=== PATIENT | female | born 1940 | race Caucasian/White ===

== ENCOUNTER 2018-03-07 14:30 | Observation (INO) | payer MEDICARE, OTHER ==
[~2018-03-07 14:30] MED LIST: ISOVUE-370 76%-LOCM 1 ML ONE; Iopamidol 370 76% 50 ML VIAL FS ONE
[2018-03-07 15:28] LABS: #Eosinphils 0.1 thou/uL (0.0-0.7); #Lymphocytes 1.6 thou/uL (1.20-3.40); #Monocytes 0.6 thou/uL (0.11-0.59); #Neutrophils 4.5 thou/uL (1.40-6.50); %Basophils 0.2 % (0.0-1.0); %Eosinophils 2.2 % (0.0-10.0); %Lymphocytes 23.9 % (21.0-51.0); %Monocytes 8.1 % (0.0-10.0); %Neutrophils 65.7 % (42.0-75.0); Hemoglobin 10.2 g/dL (12.0-16.0); Mean Corpuscular HGB CONC 31.4 g/dL (32.0-36.0); Mean Corpuscular Hemoglobin 26.8 pg (27.0-31.0); Mean Corpuscular Volume 85.4 fL (78.0-98.0); Mean Platelet Volume 8.1 fL (7.4-10.4); Platelet Count 165 thou/uL (130-400); RBC Distribution Width 15.5 % (11.5-14.5); Red Blood Cell (RBC) Count 3.79 mill/uL (4.20-5.40); White Blood Cell (WBC) Count 6.8 thou/uL (4.8-10.8)
[2018-03-07 15:47] LABS: ALT (SGPT) 29 U/L (8-55); AST (SGOT) 46 U/L (5-34); Albumin 3.5 g/dL (3.4-4.8); Alkaline Phosphatase 70 U/L (40-150); Anion Gap 13 mmol/L (10-20); BUN (Urea Nitrogen) 5 mg/dL (9.8-20.1); Bilirubin, Total 0.8 mg/dL (0.2-1.2); Calc. Creatinine Clearance 0 mL/min (70-130); Calcium 8.9 mg/dL (7.8-10.44); Carbon Dioxide 24 mmol/L (23-31); Chloride 102 mmol/L (98-107); Estimated GFR-MDRD 51; Globulin 3.4 g/dL (2.4-3.5); Glucose 199 mg/dL (83-110); Protein, Total 6.9 g/dL (6.0-8.3); Sodium 136 mmol/L (136-145)
[2018-03-07 15:51] LABS: CKMB 0.6 ng/mL (0-6.6); Troponin I 0.016 ng/mL (< 0.028)
[2018-03-07 15:52] LABS: Potassium 2.9 mmol/L (3.5-5.1)
[2018-03-07] MEDS ORDERED: Promethazine HCl 25 MG/ML VIAL ONE (16:23)
--- NOTE | 2018-03-07 16:59 | CT ---
CT ABDOMEN AND PELVIS WITH IV CONTRAST: Date: 03/07/18 PROVIDED CLINICAL HISTORY: Abdominal fullness. FINDINGS: Visualized lung bases are free of significant opacity. The liver, spleen, pancreas, kidneys, and adrenal glands demonstrate an unremarkable CT appearance. C hanges of prior cholecystectomy are seen There is no bowel dilatation, inflammatory fat stranding, free fluid, or lymph node enlargement appar ent. Vascular calcification is seen. The osseous structures demonstrate no concerning lytic or blastic lesions. IMPRESSION: No evidence for an acute process. POS: [facility]
[2018-03-07 17:57] LABS: Magnesium 1.5 mg/dL (1.6-2.6); Phosphorus 2.3 mg/dL (2.3-4.7)
[2018-03-07] MEDS ORDERED: Potassium Chloride 20 MEQ TAB ONE (18:15)
[2018-03-07 19:51] VITALS: BMI 29.7
[2018-03-07] MEDS ORDERED: Prevnar 13-Val Conj/PF 0.5 ML SYRINGE IM ONE (20:15)
[2018-03-07 20:28] LABS: Troponin I 0.018 ng/mL (< 0.028)
[2018-03-07 22:59] LABS: Troponin I 0.014 ng/mL (< 0.028)
[2018-03-08] MEDS ORDERED: Bisacodyl 5 MG TAB PO PRN (02:21)
[2018-03-08] MEDS ORDERED: Ondansetron ODT 4 MG TAB PO PRN (02:21)
[2018-03-08] MEDS ORDERED: Acetaminophen 325 MG TAB PO PRN (02:21)
[2018-03-08] MEDS ORDERED: Dextrose 50% Abboject 50 ML SYRINGE SLOW IVP PRN (02:35)
[2018-03-08] MEDS ORDERED: Dextrose 5% in Water 1,000 ML IV PRN (02:35)
[2018-03-08] MEDS: Sodium Chloride 0.9% 1,000 ML IV SCH ×2 (03:22→16:15)
--- NOTE | 2018-03-08 03:49 | HP ---
CHIEF COMPLAINT: "I lose consciousness sometimes." HISTORY OF PRESENT ILLNESS: This is a 77-year-old female with past medical history of hypertension, diabetes mellitus type 2, osteoporosis, hyponatremia, presenting with syncope. Per electronic medical records, the patient is being brought to the hospital to be evaluated for syncopal episodes x2. Per records, patient's grandson caught the patient both times when the patient syncopized and per records & patient, she did not hit her head. Upon questioning, the patient states that she does not remember any of the incidents where she lost her consciousness. He stated that in the past she has had episode of falling and not knowing what happened. Per electronic medical record , caregiver reports rapid breathing rate during the episode and daughter stated that the patient had slower speech. The patient at this time denies any chest pain, palpitations, shortness of breath, dizziness, headaches. Per daughter, the patient had diarrhea. When asked about stitches in patient's head, the patient stated that she saw her doctor who removed her cancer from her forehead and he left stitches in and the stitches were supposed to be removed yesterday by patient had to come to the hospital because of syncopal episodes. REVIEW OF SYSTEMS: Positive for nausea, vomiting, and dizziness. Otherwise, as documented in the HPI. All systems were reviewed and are negative. PAST MEDICAL HISTORY: Hypertension, diabetes mellitus type 2, osteoporosis, hyponatremia. PAST SURGICAL HISTORY: Two-basal cell carcinoma removal, aortic valve replacement, cardiac catheterization, tonsillectomy, tubal ligation, cholecystectomy, bilateral rotator cuff repair. FAMILY HISTORY: Reviewed and contributory to this visit. PSYCHIATRIC HISTORY: No psych history. SOCIAL HISTORY: The patient denies any alcohol use, denies any illicit drug. Denies any smoking history. ALLERGIES: No known drug allergies. CURRENT MEDICATIONS: The patient takes; 1. Janumet 50 mg. 2. Aspirin 81 mg. 3. Carvedilol 40 mg b.i.d. 4. Omeprazole 20 mg. 5. Furosemide 20 mg p.r.n. 6. Tolterodine 4 mg daily. 7. Cetirizine once a day. 8. Clonidine 0.1 mg b.i.d. p.r.n. 9. Raloxifene 60 mg daily. PHYSICAL EXAMINATION: VITAL SIGNS: Blood pressure is 116/55, pulse is 73, respiratory rate of 22, temperature of 97.6, oxygen saturation of 95 on room air. GENERAL: The patient is alert, oriented x3, not in acute distress. The patient is lying in bed, speaking in full sentences. HEENT: Normocephalic, atraumatic. Pupils are equal, round, and react to light. Extraocular movements are intact. No scleral icterus. No conjunctival pallor. NECK: No JVD. Trachea is midline. No meningeal signs. Full range of motion. LUNGS: Clear to auscultation bilaterally. No wheezing, no rales, no rhonchi appreciated. CARDIOVASCULAR: Positive S1, S2. Regular rate and rhythm. No murmurs, no gallops, no rubs appreciated. ABDOMEN: Distended. Positive bowel sounds in all quadrants. No masses. No pulsatile masses. No peritoneal signs. EXTREMITIES: Upper extremity: 5/5 upper extremity strength. Good radial pulses bilaterally. Lower extremity: 5/5 lower extremity strength. Good dorsalis pedis pulses bilaterally. NEUROLOGIC: Cranial nerves II through XII grossly intact. No neurologic deficits noted. SKIN: Patient appears pale, warm, and dry. No rashes appreciated. PSYCHIATRIC: Normal affect. EKG: Normal sinus rhythm with a rate of 71. LABORATORY DATA: WBC is 6.8, hemoglobin is 10.2, hematocrit is 30.2, MCV is 85.4, RDW is 15.5. Sodium is 136, potassium is 2.9, chloride 102, carbon dioxide 24, BUN of 5, creatinine is 1.04, glucose is 199, magnesium is 1.5. AST is 46, ALT is 29. IMAGING: CT abdomen and pelvis showed no evidence of any acute process. ASSESSMENT AND PLAN: This is a 77-year-old female being admitted for: 1. Syncope, likely due to orthostatic hypotension. At this point, we have ordered orthostatic blood pressures. We will follow up with morning EKG. We will follow up with morning labs. We will order an echo and follow up on echo. We will adjust the patient's medications accordingly. We will start the patient on gentle hydration. We will follow up in the morning. We will continue to monitor the patient closely. 2. Microcytic anemia, likely due to iron deficiency. We have ordered iron, B12 , folate. We will follow up on these results in the morning. 3. Hypertension. We will continue patient on current medications. We will hold Coreg for now. 4. Diabetes mellitus type 2. We will start the patient on insulin sliding scale. We will monitor the patient. 5. Status post basal cell carcinoma of the forehead removed, currently stable. We will continue to monitor the patient. 6. Deep venous thrombosis and gastrointestinal prophylaxis. MTDD
[2018-03-08 05:04] LABS: #Eosinphils 0.2 thou/uL (0.0-0.7); #Lymphocytes 2.4 thou/uL (1.20-3.40); #Monocytes 0.5 thou/uL (0.11-0.59); #Neutrophils 4.2 thou/uL (1.40-6.50); %Basophils 0.4 % (0.0-1.0); %Eosinophils 2.6 % (0.0-10.0); %Lymphocytes 32.8 % (21.0-51.0); %Monocytes 7.3 % (0.0-10.0); %Neutrophils 56.9 % (42.0-75.0); Hemoglobin 9.9 g/dL (12.0-16.0); Mean Corpuscular HGB CONC 31.1 g/dL (32.0-36.0); Mean Corpuscular Hemoglobin 26.5 pg (27.0-31.0); Mean Corpuscular Volume 85.2 fL (78.0-98.0); Mean Platelet Volume 8.2 fL (7.4-10.4); Platelet Count 192 thou/uL (130-400); RBC Distribution Width 15.7 % (11.5-14.5); Red Blood Cell (RBC) Count 3.74 mill/uL (4.20-5.40); White Blood Cell (WBC) Count 7.3 thou/uL (4.8-10.8)
[2018-03-08 05:22] LABS: Anion Gap 10 mmol/L (10-20); BUN (Urea Nitrogen) 7 mg/dL (9.8-20.1); Calc. Creatinine Clearance 66 mL/min (70-130); Calcium 8.7 mg/dL (7.8-10.44); Carbon Dioxide 25 mmol/L (23-31); Chloride 104 mmol/L (98-107); Estimated GFR-MDRD 60; Glucose 143 mg/dL (83-110); Iron 32 ug/dL (50-170); Iron Binding Capacity, Total 354 mcg/dL (265-497); Sodium 136 mmol/L (136-145)
[2018-03-08 05:28] LABS: Potassium 2.9 mmol/L (3.5-5.1)
[2018-03-08 05:53] LABS: Folate (Folic Acid) 12.7 ng/mL (7.0-31.4)
[2018-03-08] MEDS: Potassium Chloride 20 MEQ in Premix Bag 1 BAG IVPB SCH ×2 (06:31→11:45)
[2018-03-08] MEDS: Aspirin 81 mg Enteric Coated Tablet PO SCH (09:20)
[2018-03-08] MEDS: Enoxaparin Sodium 40 MG/0.4 ML SYRINGE SC SCH (09:21)
[2018-03-08] MEDS: Famotidine 20 MG TAB PO SCH ×2 (09:21→20:00)
[2018-03-08] MEDS: Cetirizine HCl 10 MG TAB PO SCH (09:21)
[2018-03-08] MEDS: HumaLOG 300 UNITS/3 ML VIAL SC PRN ×2 (12:14→17:19)
--- NOTE | 2018-03-08 13:28 | PDOC.EVN ---
Event Note - Event Note Event Note: Pt seen and examined with Kendal Jacobson PA-C. I have seen and evaluated the pateint and reviewed all documentations. I agree with the findings and plan as outlined in his note
[2018-03-08 14:37] LABS: Magnesium 1.5 mg/dL (1.6-2.6); Potassium 3.4 mmol/L (3.5-5.1)
[2018-03-08] MEDS: Carvedilol 6.25 MG TAB PO SCH (16:12)
[2018-03-08] MEDS ORDERED: Carvedilol 6.25 MG TAB PO SCH (17:00)
--- NOTE | 2018-03-08 17:09 | PDOC.PN ---
- Subjective Encounter Start Date: 03/08/18 Encounter Start Time: 17:05 Patient lying in bed, she denies chest pain, shortness of breath or abdominal pain. Potassium was found to be low this morning at 2.9 and improved with potassium supplementation via IV infusion. It was also found that Magnesium was 1.5. Orthostatic BPs were obtained and were negative. She has shown symptom improvement post replacement, but her BP has worsened today and she has since been restarted on home Carvedilol - Objective Resuscitation Status: Resuscitation Status FULL:Full Resuscitation MAR Reviewed: Yes Vital Signs & Weight: Vital Signs (12 hours) Temp Pulse Resp BP BP BP Pulse Ox 03/08/18 16:12 183/83 H 03/08/18 15:23 98.4 F 83 24 H 183/83 H 95 03/08/18 11:05 98.3 F 75 20 167/73 H 95 03/08/18 07:37 98.2 F 71 20 177/72 H 95 Weight Weight 178 lb 11.2 oz I&O: 03/07/18 03/08/18 03/09/18 06:59 06:59 06:59 Intake Total 150 820 Output Total 1400 Balance -1250 820 Result Diagrams: 03/08/18 04:24 03/08/18 14:10 Additional Labs: Accuchecks 03/08/18 03/07/18 11:08 20:14 POC Glucose 201 H 169 H Radiology Reviewed by me: Yes EKG Reviewed by me: Yes Phys Exam - Physical Examination Constitutional: NAD HEENT: PERRLA, moist MMs, sclera anicteric, oral pharynx no lesions, 2+ tonsils Neck: no nodes, no JVD, supple Respiratory: no wheezing, no rales, no rhonchi, clear to auscultation bilateral Cardiovascular: RRR, no significant murmur, no rub Gastrointestinal: soft, non-tender, no distention, positive bowel sounds Musculoskeletal: no edema, pulses present Neurological: non-focal, normal sensation, moves all 4 limbs Lymphatic: no nodes Psychiatric: normal affect, A&O x 3 Skin: no rash, normal turgor, cap refill <2 seconds Dx/Plan (1) Hypertension Code(s): I10 - ESSENTIAL (PRIMARY) HYPERTENSION Status: Acute (2) Hypokalemia Code(s): E87.6 - HYPOKALEMIA Status: Acute (3) Hypomagnesemia Code(s): E83.42 - HYPOMAGNESEMIA Status: Acute (4) Syncope Code(s): R55 - SYNCOPE AND COLLAPSE Status: Resolved Qualifiers: Encounter type: initial encounter - Plan cont current plan of care, DVT proph w/lovenox * Monitor BMP including potassium and magnesium, replacements given. Recheck mag and potassium in the am * Encourage hydration * BP elevated, restart home Carvedilol and adjust dose accordingly. * Hold discharge for HTN and hypomagnesium and hypokalemia, likely discharged in the am
[2018-03-08] MEDS ORDERED: Magnesium Chloride 64 MG TAB PO SCH (21:00)
[2018-03-09] MEDS: Sodium Chloride 0.9% 1,000 ML IV SCH (03:12)
[2018-03-09] MEDS ORDERED: cloNIDine 0.1 MG TAB PO PRN (07:54)
[2018-03-09] MEDS ORDERED: Magnesium 2 GM/50 ML 2 GM in Premix Bag 1 BAG IVPB SCH (08:00)
[2018-03-09 08:22] VITALS: TEMP 98.1
--- NOTE | 2018-03-09 08:44 | EKG ---
Test Reason : Blood Pressure : / mmHG Vent. Rate : 071 BPM Atrial Rate : 071 BPM P-R Int : 174 ms QRS Dur : 088 ms QT Int : 476 ms P-R-T Axes : 009 -16 -01 degrees QTc Int : 517 ms Normal sinus rhythm Minimal voltage criteria for LVH, may be normal variant Septal infarct (cited on or before 07-MAR-2018)/Poor R wave progression. Inferior infarct (cited on or before 07-MAR-2018)/Q;s in III and aVF. Prolonged QT Abnormal ECG When compared with ECG of 07-MAR-2018 14:37, (Unconfirmed) QT has shortened Confirmed by THIEN BURDICK ([id number]) on 03/09/2018 8:44:01 AM Referred By: PRASANTH Confirmed By:THIEN BURDICK
[2018-03-09] MEDS: Carvedilol 6.25 MG TAB PO SCH (08:56)
[2018-03-09] MEDS: Famotidine 20 MG TAB PO SCH (08:56)
[2018-03-09] MEDS: Aspirin 81 mg Enteric Coated Tablet PO SCH (08:57)
[2018-03-09] MEDS: Enoxaparin Sodium 40 MG/0.4 ML SYRINGE SC SCH (08:57)
[2018-03-09] MEDS: Cetirizine HCl 10 MG TAB PO SCH (09:00)
[2018-03-09] MEDS: HumaLOG 300 UNITS/3 ML VIAL SC PRN (11:04)
[2018-03-09 11:55] VITALS: BP 126/62
--- NOTE | 2018-03-09 14:17 | DIS ---
DATE OF ADMISSION: 03/07/2018 DATE OF DISCHARGE: 03/09/2018 DISCHARGE DIAGNOSES: 1. Syncope, resolved. 2. Hypertension, stable. 3. Hypokalemia, stable. 4. Hypomagnesemia, stable. CONSULTATIONS: None. PERTINENT LABORATORY DATA AND IMAGING DATA: WBC 7.3, RBC 3.74, hemoglobin 9.9, potassium 3.4, magnes ium 1.3, glucose 254. CT abdomen and pelvis with contrast showed no evidence of acute process. An e chocardiogram showed an EF of 60%-65%. HOSPITAL COURSE: Ms. Yoon is a 77-year-old female who had presented to the ER with complaints of s yncope, nausea, vomiting and dizziness. She stated that she had 2 episodes of syncopal-like episode at home and grandson had caught her before falling to the ground, she did not hit her head. She had denied any chest pain or shortness of breath. She did complain of some abdominal fullness. CT abdom en and pelvis was obtained which was unremarkable at that time. It was found that she was orthostati c. She was placed on intravenous fluids which included normal saline. Her labs did show that she wa s hypokalemic; therefore placed on potassium supplementation which she tolerated well. During hospit al course with IV fluids and potassium replacement, her symptoms had improved, she had no further epi sodes of syncope, chest pain, shortness of breath or abdominal pain. Her nausea and dizziness improv ed. Orthostatic vital signs were rechecked and were unremarkable. However, her vital did show that she became hypertensive during hospital course therefore she was restarted on her home medications wh ich included carvedilol 12.5 mg twice daily and clonidine 0.1 mg p.o. b.i.d. as needed. This was alida wn to improve her blood pressure, recheck of her blood pressure did show systolic 126, diastolic 62. She had no further complaints at that time. She did undergo an echocardiogram during hospital cours e which demonstrated a left ventricular ejection fraction of 60%-65%. Morning labs did indicate that her potassium was 3.4. Further lab of magnesium was obtained and displayed magnesium 1.3. She was given 2 grams of magnesium sulfate x1 and tolerated well. She was seen and examined prior to dischar ge. She was advised to follow up with her PCP, Dr. Bunch for recheck of her BMP and magnesium and a lso to monitor potassium levels. She will receive further replacement as outpatient. She was instru cted to continue her home medications as directed. She verbalized her understanding and she was medi roshan stable for discharge on 03/09/2018. DISCHARGE MEDICATIONS: 1. Cetirizine 10 mg daily. 2. Metformin 500 mg twice daily. 3. Clonidine 0.1 mg p.o. p.r.n. for hypertension. 4. Omeprazole 20 mg twice daily. 5. Ibuprofen 200 mg as needed for pain. 6. Furosemide 20 mg p.o. p.r.n. for edema. 7. Carvedilol 40 mg twice daily. 8. Aspirin 81 mg daily. 9. Acetaminophen 1000 mg p.o. q.a.m. 10. Raloxifene 60 mg tablet daily. 11. Tolterodine 4 mg daily. FOLLOWUP: The patient is to follow up with her PCP, Dr. Bunch in 1-2 weeks where she was instructed to follow up with BMP along with magnesium to monitor her potassium and magnesium levels. CONDITION ON DISCHARGE: Stable. ACTIVITY: As tolerated. DIET: Heart healthy diet. CODE STATUS: FULL CODE. DISPOSITION: Home on 03/09/2018.
--- NOTE | 2018-03-16 11:52 | EKG ---
Test Reason : SYNCOPE Blood Pressure : / mmHG Vent. Rate : 071 BPM Atrial Rate : 071 BPM P-R Int : 166 ms QRS Dur : 092 ms QT Int : 560 ms P-R-T Axes : 070 -13 066 degrees QTc Int : 608 ms Normal sinus rhythm Minimal voltage criteria for LVH, may be normal variant Septal infarct , age undetermined Inferior infarct , age undetermined Abnormal ECG Confirmed by LAURA RANKIN DO ([id number]), society editor NAZ YORK ([id number]) on 03/16/2018 11:52:03 AM Referred By: MASSIEL Confirmed By:LAURA RANKIN DO
== END 2018-03-09 14:18 | disposition home or self-care (01) ==
LOC: ERS 14:30 → 2SW 19:40
PROVIDERS: ADMIT Internal Medicine; ATTEND Internal Medicine
DX: R55 Syncope and collapse (principal); I10 Essential (primary) hypertension; E87.6 Hypokalemia; E83.42 Hypomagnesemia; Z79.84 Long term (current) use of oral hypoglycemic drugs; Z79.82 Long term (current) use of aspirin; Z79.899 Other long term (current) drug therapy
CPT/HCPCS: 74177; 80048; 80053; 82553; 82607; 82728; 82746; 82962 ×3; 83540; 83550; 83735 ×3; 84100; 84132; 84484 ×2; 85025 ×2; 90662; 90670; 93005 ×2; 93306; 96361 ×3; 96365; 96366; 96367 ×2; 96372 ×2; 99285; G0008; G0009; G0378 ×2; 36415; 36416; 90471; 93010; J1650; J2550; J3480

== ENCOUNTER 2018-06-13 00:20 | Inpatient (IN) | payer MEDICARE, OTHER ==
[2018-06-13 01:54] LABS: #Eosinphils 0.1 thou/uL (0.0-0.7); #Lymphocytes 1.2 thou/uL (1.20-3.40); #Monocytes 0.8 thou/uL (0.11-0.59); #Neutrophils 7.3 thou/uL (1.40-6.50); %Basophils 0.2 % (0.0-1.0); %Eosinophils 0.6 % (0.0-10.0); %Lymphocytes 12.7 % (21.0-51.0); %Monocytes 8.6 % (0.0-10.0); %Neutrophils 77.9 % (42.0-75.0); Hemoglobin 9.4 g/dL (12.0-16.0); Mean Corpuscular HGB CONC 31.8 g/dL (32.0-36.0); Mean Corpuscular Hemoglobin 27.4 pg (27.0-31.0); Mean Corpuscular Volume 86.1 fL (78.0-98.0); Mean Platelet Volume 8.1 fL (7.4-10.4); Platelet Count 161 thou/uL (130-400); RBC Distribution Width 16.6 % (11.5-14.5); Red Blood Cell (RBC) Count 3.45 mill/uL (4.20-5.40); White Blood Cell (WBC) Count 9.4 thou/uL (4.8-10.8)
[2018-06-13 02:04] LABS: ALT (SGPT) 33 U/L (8-55); AST (SGOT) 79 U/L (5-34); Albumin 3.4 g/dL (3.4-4.8); Alkaline Phosphatase 74 U/L (40-150); Anion Gap 19 mmol/L (10-20); BUN (Urea Nitrogen) 11 mg/dL (9.8-20.1); Bilirubin, Total 0.6 mg/dL (0.2-1.2); Calc. Creatinine Clearance 0 mL/min (70-130); Calcium 8.8 mg/dL (7.8-10.44); Carbon Dioxide 15 mmol/L (23-31); Chloride 100 mmol/L (98-107); Estimated GFR-MDRD 47; Globulin 3.7 g/dL (2.4-3.5); Glucose 191 mg/dL (83-110); Protein, Total 7.1 g/dL (6.0-8.3); Sodium 129 mmol/L (136-145)
[2018-06-13] MEDS ORDERED: Morphine 4 MG/ML VIAL ONE (03:14)
[2018-06-13] MEDS ORDERED: Dextrose 5% in Water 1,000 ML IV PRN (03:36)
[2018-06-13] MEDS ORDERED: Ondansetron ODT 4 MG TAB PO PRN (03:36)
[2018-06-13] MEDS ORDERED: Dextrose 50% Abboject 50 ML SYRINGE SLOW IVP PRN (03:36)
[2018-06-13] MEDS ORDERED: Morphine 4 MG/ML VIAL SLOW IVP PRN (03:36)
[2018-06-13] MEDS ORDERED: Ondansetron PF 4 MG/2 ML Vial IVP PRN (03:36)
[2018-06-13] MEDS ORDERED: hydrALAZINE 20 MG/ML VIAL SLOW IVP PRN (03:36)
[2018-06-13] MEDS ORDERED: Ketorolac Tromethamine 30 MG/ML VIAL IVP SCH (03:45)
[2018-06-13] MEDS ORDERED: Ketorolac Tromethamine 30 MG/ML VIAL ONE (03:53)
--- NOTE | 2018-06-13 04:02 | HP ---
REQUESTING PHYSICIAN: Dr. Merino. ATTENDING SURGEON: Natalio Rodriguez MD CONSULTATIONS: Orthopedics, Dr. Barrios. HISTORY OF PRESENT ILLNESS: The patient is a 78-year-old woman, who reportedly had a fall from bed. The patient has significant dementia and is a relatively poor historian. Her daughter whom she lives with and granddaughter are unable to verify she actually fell out of bed or fell at some other point, but she was brought to the emergency department, where she underwent evaluation and examination and was noted to have a left supracondylar fracture at which time we were asked to admit the patient and obtain Orthopedic consultation. ALLERGIES: NONE. CURRENT MEDICATIONS: The daughter is getting a copy of her medications. Does state that the patient is on "a lot of medicines." PAST MEDICAL HISTORY: Coronary artery disease, hyponatremia, osteoporosis, hypertension, type 2 diabetes, and dementia. PAST SURGICAL HISTORY: Skin cancer removal, aortic valve replacement, cardiac catheterization, tonsillectomy, tubal ligation, cholecystectomy, bilateral rotator cuff repair, right ankle and right foot surgery. SOCIAL HISTORY: There is no history of drug, tobacco use or alcohol use. Again, the patient lives with her daughter and granddaughter. REVIEW OF SYSTEMS: A 10-point review of systems is negative as otherwise stated. PHYSICAL EXAMINATION: VITAL SIGNS: Blood pressure 128/50, heart rate 74, respirations 18, oxygen saturation 94% on room air, and temperature is 98.5. GENERAL: The patient is resting comfortably in bed. She is awake and appropriate. Veronica Coma Scale is 15. Actually answers many questions quite well, but does have a lot of gaps in her memory. Family verifies that this is her baseline. HEENT. Head is normocephalic and atraumatic. Eyes, extraocular motion intact. PERRLA bilaterally. Ears are atraumatic without discharge. Nose is atraumatic without discharge. Oropharynx is clear. NECK: Nontender. Trachea is midline. CHEST: Clear to auscultation with good inspiratory and expiratory effort. HEART: Regular rate and rhythm. ABDOMEN: Soft, flat, and nontender with active bowel sounds. PELVIS: Stable. EXTREMITIES: Neurovascularly intact x4. The patient has small contusion noted about her left olecranon process with tenderness to palpation globally to the left elbow. NEUROVASCULAR: Intact distally from this injury. BACK: Atraumatic and nontender. LABORATORY FINDINGS: White blood cell count 9.4, hemoglobin 9.4, hematocrit 29.7, platelets 161. Sodium 129, potassium 5.0, chloride 100, CO2 of 15, BUN 11, creatinine 1.13, glucose 191. LFTs are unremarkable. RADIOGRAPHS: Use of the left elbow show a minimally displaced supracondylar fracture. Use of the left shoulder show no acute findings. ASSESSMENT: 1. Status post fall. 2. Left supracondylar fracture. 3. Hyponatremia. 4. History of dementia. 5. History of coronary artery disease. 6. History of aortic valve replacement. 7. Acute traumatic pain. PLAN: Plan will be to admit the patient to the surgical floor. Dr. Barrios will discuss with the patient's family in the morning, surgical options versus nonoperative management. The patient will be kept n.p.o. until the final determination is made. She has been splinted in the emergency department by the ER physician. Upstairs, she will have pulmonary toilet, gastritis, mechanical VTE prophylaxis, and pain control. The evaluation, examination, laboratory, and radiographic findings will be discussed with Dr. Rodriguez after this dictation. Job ID: [id number]
[2018-06-13] MEDS ORDERED: CEFAZOLIN/Water 2 GM/20 ML SYRINGE SLOW IVP SCH ×2 (07:15→17:28)
--- NOTE | 2018-06-13 07:44 | CON ---
DATE OF CONSULTATION: 06/13/2018 ORTHOPEDIC CONSULTATION NOTE BRIEF HISTORY OF PRESENT ILLNESS: Ms. Yoon is a 78-year-old right-hand dominant lady, who sustained a fall from her bed on the evening of June 12, landed on her outstretched left arm. The patient has significant dementia and as such, is a poor historian. Her daughter was here initially in the emergency room to provide more history to ZEKE Wells of the Trauma Service. The patient was found out of her bed and brought to the emergency room, where x-rays were obtained. These demonstrated a moderately displaced left supracondylar distal humerus fracture. The patient admitted to the Trauma Service with orthopedic consultation requested. PAST MEDICAL HISTORY: Remarkable for coronary artery disease, hyponatremia, type 2 diabetes, high blood pressure, and dementia. PAST SURGICAL HISTORY: Includes aortic valve replacement; tonsillectomy; tubal ligations; cholecystectomy; prior orthopedic surgeries including shoulder, ankle and foot as well as prior cardiac catheterizations. MEDICATIONS: Per the reconciliation form include; 1. Aspirin. 2. Tylenol. 3. Carvedilol. 4. Cetirizine. 5. Clonidine. 6. Lasix. 7. Metformin. 8. Omeprazole. 9. Raloxifene. ALLERGIES: NONE KNOWN. FAMILY HISTORY: Noncontributory. SOCIAL HISTORY: The patient denies tobacco, drug, or alcohol use. She lives in a private residence with her daughter. REVIEW OF SYSTEMS: No recent fevers, chills, or sweats. The patient denies chest pain or shortness of breath. She denies numbness or tingling in this left upper extremity, which is currently stabilized with posterior fiberglass splint. PHYSICAL EXAMINATION: VITAL SIGNS: Temperature 98.5, heart rate 74, respiratory rate 18, and blood pressure 128/50. GENERAL: The patient is awake and alert. Resting comfortably in her bed in the emergency room due to no beds available in the hospital. HEENT: Atraumatic, normocephalic. HEART: Shows a regular rate and rhythm. CHEST: Clear to auscultation with no chest wall pain. ABDOMEN: Soft, flat, and nontender. PELVIS: Stable. EXTREMITIES: Bilateral lower extremities are remarkable for no hip, knee, ankle, or foot pain. She is moving her ankles and toes normally. She has intact subjective sensation. The right upper extremity is atraumatic with no pain at shoulder, elbow, wrist, or hand. She has intact sensation distally. The left upper extremity is remarkable for a long-arm posterior splint in place. The shoulder appears atraumatic. Her wrist and hand also appear atraumatic. She has intact sensation in the radial, median, and ulnar distributions. She is able to flex and extend her digits as well as flex and extend her wrist with no weakness. LABORATORY DATA: White count of 9.4, hematocrit of 29.7, and platelets 161,000. She was found to have a sodium of 129 and a potassium of 5.0. IMAGING DATA: X-rays of both wrist, hand, and elbow were obtained. These are most remarkable for a left distal humerus fracture that is transverse, basically running across the epicondylar axis with a slight lateral shift of the distal fragment. ASSESSMENT: A 78-year-old status post fall, sustaining left supracondylar distal humerus fracture. PLAN: At this time, the patient is admitted to the Trauma Service. Given the shift and the anticipated rotational instability, I would like to proceed with a stabilization of this fracture either utilizing pins in close reduction or a formal open reduction and internal fixation. Alternatives would include an elbow replacement. However, given the lack of intra-articular extension, I am hopeful that we can achieve stabilization and bony union with this stabilization. Today, I discussed with the patient the risks and benefits of the surgery. Risks include, but are not limited to, bleeding, infection, nerve injury, DVT, PE, elbow stiffness, nonunion with need for additional surgery, loss of limb or life. The patient appears to understand and does wish to proceed. Consent will be obtained prior to surgery. Job ID: [id number]
--- NOTE | 2018-06-13 08:03 | RAD ---
FOUR VIEWS LEFT ELBOW: HISTORY: Fall. Arm pain. FINDINGS: AP, lateral, and both oblique views of left elbow obtained. Images demonstrate a displaced intracondylar fracture in the distal left humerus. There is medial di splacement of the distal fracture fragment. IMPRESSION: Intercondylar distal left humeral fracture. POS: [facility]
--- NOTE | 2018-06-13 08:14 | RAD ---
RADIOGRAPH LEFT SHOULDER 3 VIEWS: DATE: 06/13/2018. HISTORY: A 78-year-old female with traumatic left shoulder pain after fall. FINDINGS: Diffuse osteopenia. No acute fracture identified. No dislocation. Rotator cuff anchor screws embed ded in humeral head. Mild to moderate DJD at AC joint. IMPRESSION: 1. no acute fracture identified. 2. Status post left rotator cuff repair. 3. Osteopenia. POS: [facility]
[2018-06-13] MEDS ORDERED: CEFAZOLIN 2 GM/50 ML-DEXTROSE 2 GM in Premix Bag 1 BAG IVPB SCH (08:15)
--- NOTE | 2018-06-13 11:38 | RAD ---
AP VIEW CHEST: Date: 06/13/18 HISTORY: Fall. FINDINGS: AP view of chest demonstrates sternotomy wires seen. EKG leads seen over the chest. The lungs are wel l aerated. No evidence of active intrathoracic disease seen. No evidence of effusions, pneumonia, or pneumothorax seen. Bilateral shoulder surgical screws seen in the humeral heads. IMPRESSION: Sternotomy wires seen. No acute intrathoracic abnormalities seen. POS: [facility]
[2018-06-13 13:34] VITALS: BMI 29.5
--- NOTE | 2018-06-13 13:42 | PRG ---
DATE OF SERVICE: 06/13/2018 SUBJECTIVE: Ms. Yoon is a 78-year-old woman, who fell out of bed yesterday sustaining a left elbow fracture. The patient is awake and alert. This morning, she reports adequate pain control. She denies any syncope, dyspnea, or chest pain. OBJECTIVE: VITAL SIGNS: Currently includes a blood pressure 177/76, pulse 87, respiratory rate is 21, temperature 98.2 degrees Fahrenheit, and oxygen saturation 95% on room air. HEENT: Pupils are equal, round, and reactive to light and accommodation. HEART: Reveals regular rate and rhythm. No murmurs or gallops auscultated. LUNGS: Clear to auscultation bilaterally. Her breathing, regular and nonlabored. ABDOMEN: Soft, nontender, and nondistended. EXTREMITIES: Reveals 2+ radial and pedal pulses bilaterally. NEUROLOGIC: Reveals no focal deficits present. LABORATORY FINDINGS: Today includes a CBC with 9400 white blood cells, hemoglobin and hematocrit 9.4 and 29.7 respectively. Platelet count is 161,000. Metabolic profile; sodium 129, potassium is 5.0, chloride is 100, bicarb 15, creatinine is 1.13, and glucose 191. AST and ALT 79 and 32 respectively. IMPRESSION: Post injury; 1. Status post fall off a bed. 2. Left elbow fracture. 3. Chronic hyponatremia. PLAN: Continue with fluid resuscitation using normal saline at this time and restrict free water intake postoperatively. We will pursue additional workup for this patient's hyponatremia. The patient is definitely hemodynamically stable to proceed with orthopedic surgery for repair of the left elbow fracture. Job ID: [id number]
[2018-06-13] MEDS ORDERED: CEFAZOLIN 2 GM/50 ML BAG ONE (14:38)
[2018-06-13 14:42] LABS: Thyroid Stimulating Hormone 1.8687 uIU/mL (0.35-4.94)
[2018-06-13] MEDS: Sodium Chloride 0.9% 1,000 ML IV SCH ×2 (15:19→21:03)
[2018-06-13] MEDS: Famotidine 20 MG TAB PO SCH ×2 (15:21→21:02)
[2018-06-13] MEDS: Acetaminophen 1,000 MG in Premix Bag 1 BAG IVPB SCH ×3 (15:35→23:03)
[2018-06-13] MEDS ORDERED: Glycopyrrolate 0.2 MG/ML 5 ML SYRINGE ONE (15:47)
[2018-06-13] MEDS ORDERED: Rocuronium Bromide 10 MG/ML (10ML VIAL) ONE (15:47)
[2018-06-13] MEDS ORDERED: Lidocaine 1% PF 5 ML VIAL ONE (15:47)
[2018-06-13] MEDS ORDERED: PROPOFOL 200 MG/20 ML VIAL ONE (15:47)
[2018-06-13] MEDS ORDERED: PHENYLEPHRINE-NS 100 MCG/ML 10 ML SYRINGE ONE (15:47)
[2018-06-13] MEDS ORDERED: Fentanyl 100 MCG/2 ML VIAL ONE (15:53)
[2018-06-13] MEDS ORDERED: Ondansetron HCl/PF 4 MG/2 ML Vial IVP PRN (17:00)
[2018-06-13] MEDS ORDERED: Promethazine HCl 25 MG/ML VIAL SLOW IVP PRN (17:00)
[2018-06-13] MEDS ORDERED: Promethazine HCl 25 MG/ML VIAL IM PRN (17:00)
[2018-06-13] MEDS: CEFAZOLIN 2 GM/50 ML-DEXTROSE 2 GM in Premix Bag 1 BAG IVPB SCH (21:03)
[2018-06-13] MEDS: Insulin Regular 300 UNITS/3 ML VIAL SC PRN (22:11)
[2018-06-14] MEDS: Sodium Chloride 0.9% 1,000 ML IV SCH ×2 (05:33→14:36)
[2018-06-14] MEDS: Acetaminophen 1,000 MG in Premix Bag 1 BAG IVPB SCH (05:34)
[2018-06-14] MEDS: CEFAZOLIN 2 GM/50 ML-DEXTROSE 2 GM in Premix Bag 1 BAG IVPB SCH ×2 (05:37→14:15)
[2018-06-14] MEDS: Famotidine 20 MG TAB PO SCH ×2 (08:29→19:52)
[2018-06-14 08:48] LABS: #Eosinphils 0.1 thou/uL (0.0-0.7); #Lymphocytes 0.8 thou/uL (1.20-3.40); #Monocytes 0.6 thou/uL (0.11-0.59); #Neutrophils 5.8 thou/uL (1.40-6.50); %Basophils 0.4 % (0.0-1.0); %Eosinophils 1.5 % (0.0-10.0); %Lymphocytes 11.5 % (21.0-51.0); %Monocytes 7.5 % (0.0-10.0); %Neutrophils 79.1 % (42.0-75.0); Hemoglobin 9.7 g/dL (12.0-16.0); Mean Corpuscular HGB CONC 31.4 g/dL (32.0-36.0); Mean Corpuscular Hemoglobin 26.9 pg (27.0-31.0); Mean Corpuscular Volume 85.8 fL (78.0-98.0); Mean Platelet Volume 7.9 fL (7.4-10.4); Platelet Count 131 thou/uL (130-400); RBC Distribution Width 16.6 % (11.5-14.5); Red Blood Cell (RBC) Count 3.58 mill/uL (4.20-5.40); White Blood Cell (WBC) Count 7.3 thou/uL (4.8-10.8)
[2018-06-14] MEDS ORDERED: Prevnar 13-Val Conj/PF 0.5 ML SYRINGE IM ONE (09:00)
[2018-06-14 09:10] LABS: Anion Gap 12 mmol/L (10-20); BUN (Urea Nitrogen) 12 mg/dL (9.8-20.1); Calc. Creatinine Clearance 61 mL/min (70-130); Calcium 8.4 mg/dL (7.8-10.44); Carbon Dioxide 19 mmol/L (23-31); Chloride 102 mmol/L (98-107); Estimated GFR-MDRD 56; Glucose 171 mg/dL (83-110); Magnesium 1.3 mg/dL (1.6-2.6); Sodium 129 mmol/L (136-145)
[2018-06-14 09:15] LABS: Phosphorus 1.8 mg/dL (2.3-4.7)
[2018-06-14 11:26] LABS: Bacteria/HPF None Seen HPF (None Seen); Hyaline Casts/LPF 0-3 HYALINE CAST LPF (0-3 Hyaline); Pathc Cast-AUWi Flag 0.14 (0-2.49); RBC/HPF 0-3 HPF (0-3); Squamous Epithelial 0-3 HPF (0-3)
[2018-06-14 11:28] LABS: Bilirubin Negative (Negative); Blood, Urine Negative (Negative); Clarity CLEAR (Clear); Glucose, Urine (Dipstick) Negative (Negative); Leukocyte Small (Negative); Nitrite Negative (Negative); Protein, Urine (Dipstick) Negative (Neg-Trace); Specific Gravity, Urine 1.016 (1.002-1.036); Urobilinogen 0.2 mg/dL (0.2-1.0); pH, Urine 6.5 (5.0-9.0)
[2018-06-14 11:29] LABS: Osmolality, Urine 393 mOsm/kg (300-900)
[2018-06-14] MEDS ORDERED: traMADol HCl 50 MG TAB PO PRN ×2 (11:31)
[2018-06-14 11:33] LABS: Urine Culture Reflex Yes Yes
[2018-06-14 11:41] LABS: Sodium, Urine 79 mmol/L (Not Available)
[2018-06-14] MEDS ORDERED: Acetaminophen 500 MG TAB PO SCH (12:00)
[2018-06-14] MEDS ORDERED: Sodium Chloride 0.9% 1,000 ML IV SCH ×2 (13:45→17:15)
--- NOTE | 2018-06-14 14:22 | RAD ---
INTRAOPERATIVE IMAGING OF LEFT ELBOW TWO VIEWS: Date: 06-13-18 History: Fracture, status post percutaneous pinning. FINDINGS: Previously noted transverse fracture of the distal left humerus has been treated with three percutane ous pins. Anatomic alignment noted at the fracture site. IMPRESSION: Percutaneous pinning of distal left humerus fracture. POS: [facility]
[2018-06-14] MEDS ORDERED: Ibuprofen 200 MG TAB PO PRN (14:32)
[2018-06-14 14:34] LABS: Anion Gap 17 mmol/L (10-20); BUN (Urea Nitrogen) 12 mg/dL (9.8-20.1); Calc. Creatinine Clearance 62 mL/min (70-130); Calcium 8.9 mg/dL (7.8-10.44); Carbon Dioxide 15 mmol/L (23-31); Chloride 100 mmol/L (98-107); Estimated GFR-MDRD 57; Glucose 120 mg/dL (83-110); Potassium 4.1 mmol/L (3.5-5.1); Sodium 128 mmol/L (136-145)
[2018-06-14] MEDS ORDERED: Magnesium 2 GM/50 ML 2 GM in Premix Bag 1 BAG IVPB SCH (14:45)
[2018-06-14] MEDS: Acetaminophen 500 MG TAB PO SCH (19:52)
--- NOTE | 2018-06-14 20:52 | PRG ---
DATE OF SERVICE: 06/14/2018 SUBJECTIVE: This is a 78-year-old woman, who fell out of bed yesterday sustaining a left elbow fracture. The patient is postop day #1. The patient is awake and alert and reports adequate pain control this morning. The patient was febrile overnight with the highest temperature of 100.6 and a heart rate high of 101 OBJECTIVE: VITAL SIGNS: Temperature 99.4, pulse 91, respirations 12, oxygen saturation 93% on room air, and blood pressure 159/77. GENERAL: The patient is awake and alert. Family at bedside. HEENT: Normocephalic and atraumatic. Pupils equal and reactive. HEART: Regular rate and rhythm. LUNGS: Regular. Respirations are nonlabored. No distress. ABDOMEN: Soft, nontender, nondistended. EXTREMITIES: Moves all extremities. Positive 2+ radial and pedal pulses. NEUROLOGIC: Reveals no focal deficits present. LABORATORY DATA: WBC 7.3, RBC 3.58, hemoglobin 9.7, hematocrit 30.8, platelets 131. Sodium 129, potassium 4.0, chloride 102, CO2 19, BUN 12, creatinine 0.97, estimated GFR 56, glucose 171, calcium 8.4, phosphorus 1.8, and magnesium 1.3. DIAGNOSTIC DATA: There are no diagnostics to report today. LABORATORY DATA: The patient's urine with negative nitrites. No bacteria. IMPRESSION: 1. Status post fall off a bed. 2. Left elbow fracture, postop day #1. 3. Chronic hyponatremia. 4. History of dementia. 5. Coronary artery disease. 6. Type 2 diabetes. 7. Hypertension. PLAN: We will replace the patient's electrolytes and repeat labs in the morning. We will continue physical therapy and pain regimen. We will encourage incentive spirometer use while awake and have family encourage patient to get out of bed and use her incentive spirometer. The patient is pending inpatient rehab placement at this time. We will continue to restrict free water. The patient was examined with Dr. Mays during morning rounds. Job ID: [id number]
[2018-06-15] MEDS: Acetaminophen 500 MG TAB PO SCH ×4 (01:33→19:50)
[2018-06-15 08:12] LABS: #Eosinphils 0.2 thou/uL (0.0-0.7); #Monocytes 0.4 thou/uL (0.11-0.59); #Neutrophils 4.2 thou/uL (1.40-6.50); %Eosinophils 4.1 % (0.0-10.0); %Lymphocytes 17.4 % (21.0-51.0); %Monocytes 7.5 % (0.0-10.0); Mean Corpuscular HGB CONC 31.7 g/dL (32.0-36.0); Mean Corpuscular Hemoglobin 26.9 pg (27.0-31.0); Mean Platelet Volume 7.7 fL (7.4-10.4); Platelet Count 134 thou/uL (130-400); RBC Distribution Width 16.4 % (11.5-14.5); Red Blood Cell (RBC) Count 3.71 mill/uL (4.20-5.40); White Blood Cell (WBC) Count 5.8 thou/uL (4.8-10.8)
[2018-06-15 08:44] LABS: Anion Gap 13 mmol/L (10-20); BUN (Urea Nitrogen) 8 mg/dL (9.8-20.1); Calc. Creatinine Clearance 80 mL/min (70-130); Calcium 8.9 mg/dL (7.8-10.44); Carbon Dioxide 21 mmol/L (23-31); Chloride 103 mmol/L (98-107); Estimated GFR-MDRD 76; Glucose 121 mg/dL (83-110); Magnesium 1.7 mg/dL (1.6-2.6); Phosphorus 2.2 mg/dL (2.3-4.7); Potassium 3.6 mmol/L (3.5-5.1); Sodium 133 mmol/L (136-145)
[2018-06-15] MEDS: Famotidine 20 MG TAB PO SCH ×2 (09:11→19:50)
[2018-06-15] MEDS: Loratadine 10 MG TAB PO SCH (09:11)
[2018-06-15] MEDS: Insulin Regular 300 UNITS/3 ML VIAL SC PRN (11:53)
--- NOTE | 2018-06-15 15:07 | PRG ---
DATE OF SERVICE: 06/15/2018 SUBJECTIVE: This is a 78-year-old woman, who fell out of bed at home, sustaining a left elbow fracture. The patient is postop day #2. The patient is awake and alert, sitting up in the chair, eating breakfast this morning. Reports that her pain is well controlled. The patient had no overnight events and has remained afebrile with a normal heart rate. The patient is able to use her incentive spirometer. The patient does have a good appetite and has had a bowel movement. The patient also has good urinary output. OBJECTIVE: VITAL SIGNS: Temperature 98.9, heart rate 88, respirations 20, SpO2 of 93% on room air, and blood pressure 149/74. GENERAL: The patient is awake, alert, sitting up in the chair, eating, in no distress. Reports she is ready to go home. HEENT: Normocephalic and atraumatic. CARDIOVASCULAR: Regular rate and rhythm. RESPIRATORY: Respirations are nonlabored with equal chest rise, in no distress. ABDOMEN: Soft, tender, nondistended. EXTREMITIES: Moves all extremities. Positive distal pulses. The patient with splint to left upper extremity. NEUROLOGIC: Reveals no focal deficits at this time. The patient is alert and oriented to person and place. GCS 15. LABORATORY DATA: WBC 5.8, RBC 3.71, hemoglobin 10.0, hematocrit 31.5, and platelets 134. Sodium 133, potassium 3.6, chloride 103, BUN 8, creatinine 0.74, estimated GFR 76, glucose 121, calcium 8.9, phosphorus 2.2, and magnesium 1.7. DIAGNOSTIC DATA: There are no diagnostics to report today. IMPRESSION: 1. Status post fall from bed. 2. Left elbow fracture, postop day #2. 3. Chronic hyponatremia. 4. History of dementia. 5. History of coronary artery disease. 6. History of type 2 diabetes. 7. History of hypertension. PLAN: 1. We will replace the patient's electrolytes. 2. We will continue physical therapy and pain regimen. We will also encourage incentive spirometer use while awake and encourage the patient to remain out of the bed more. Rehab consult has been placed as the daughter feels like she would be safer going to rehab than going back home. We will continue comfort care. The patient was discussed with Dr. Mays, who agrees with plan. Job ID: [id number]
[2018-06-15] MEDS ORDERED: Furosemide 20 MG TAB PO PRN (16:14)
[2018-06-15] MEDS: cloNIDine 0.1 MG TAB PO PRN (17:29)
[2018-06-15] MEDS: TROSPIUM 20 MG TABLET PO SCH (19:50)
[2018-06-15] MEDS: Carvedilol 6.25 MG TAB PO SCH (19:51)
[2018-06-16] MEDS: Acetaminophen 500 MG TAB PO SCH ×4 (02:34→20:08)
[2018-06-16] MEDS: Carvedilol 6.25 MG TAB PO SCH ×2 (08:51→20:09)
[2018-06-16] MEDS: Famotidine 20 MG TAB PO SCH ×2 (08:52→20:10)
[2018-06-16] MEDS: Aspirin 81 mg Enteric Coated Tablet PO SCH ×2 (08:52→20:08)
[2018-06-16] MEDS: Loratadine 10 MG TAB PO SCH (08:52)
[2018-06-16] MEDS: TROSPIUM 20 MG TABLET PO SCH ×2 (08:53→20:10)
[2018-06-16] MEDS ORDERED: Acetaminophen 500 MG TAB PO SCH (09:00)
[2018-06-16] MEDS ORDERED: Potassium Phosphate 30 MMOL in Sodium Chloride 0.9% 500 ML IVPB SCH (12:00)
[2018-06-16] MEDS ORDERED: Magnesium 2 GM/50 ML 2 GM in Premix Bag 1 BAG IVPB SCH (12:00)
[2018-06-16] MEDS: Insulin Regular 300 UNITS/3 ML VIAL SC PRN ×2 (12:32→17:12)
--- NOTE | 2018-06-16 19:56 | PRG ---
DATE OF SERVICE: 06/16/2018 SUBJECTIVE: This is a 78-year-old female, who fell out of bed at home, sustaining a left elbow fracture. The patient is postop day #3. The patient is awake and alert, sitting up in the chair. The patient did eat all of her breakfast this morning. The patient's daughter is at bedside and also reports no complaints. The patient's pain has been well controlled and did not have any overnight events. The patient remains afebrile with normal heart rate. The patient continues to have bowel movements and good appetite. The patient also has good urinary output. OBJECTIVE: VITAL SIGNS: Temperature 98.3, pulse 83, respirations 20, SpO2 of 94% on room air, and blood pressure 165/74. GENERAL: The patient is awake and alert, in no distress. CARDIOVASCULAR: Regular rate and rhythm. RESPIRATORY: Respirations are equal and unlabored, in no distress. EXTREMITIES: Moves all extremities. Positive distal pulses. The patient with splint to the left upper extremity and sling in place. No pedal edema. NEUROLOGIC: No focal deficits. The patient is alert and oriented to person, place, and time. LABORATORY DATA: There are no labs to evaluate today. DIAGNOSTIC DATA: There are no diagnostics to evaluate today. IMPRESSION: 1. Status post fall from bed. 2. Left elbow fracture, postop day #3. 3. Chronic hyponatremia. 4. History of dementia. 5. History of coronary artery disease. 6. History of type 2 diabetes. 7. History of hypertension. PLAN: Start patient on her home medications. Continue physical therapy and pain regimen. Pending placement for inpatient rehab. Daughter at bedside and agrees with the plan to attempt to place the patient in inpatient rehab, but if that is not capable, then she would like for the patient go home with home health to assist. We will continue comfort care. The plan was discussed with Dr. Mays, who agrees with the plan. Job ID: [id number] MTDD
[2018-06-16] MEDS: cloNIDine 0.1 MG TAB PO PRN (20:10)
[2018-06-17] MEDS: Acetaminophen 500 MG TAB PO SCH ×4 (03:29→20:45)
[2018-06-17 07:14] LABS: Anion Gap 14 mmol/L (10-20); BUN (Urea Nitrogen) 7 mg/dL (9.8-20.1); Calc. Creatinine Clearance 84 mL/min (70-130); Calcium 8.9 mg/dL (7.8-10.44); Carbon Dioxide 21 mmol/L (23-31); Chloride 103 mmol/L (98-107); Estimated GFR-MDRD 81; Glucose 150 mg/dL (83-110); Magnesium 1.6 mg/dL (1.6-2.6); Phosphorus 3.1 mg/dL (2.3-4.7); Potassium 3.6 mmol/L (3.5-5.1); Sodium 134 mmol/L (136-145)
[2018-06-17] MEDS: Carvedilol 6.25 MG TAB PO SCH ×2 (08:28→20:46)
[2018-06-17] MEDS: TROSPIUM 20 MG TABLET PO SCH ×2 (08:28→20:46)
[2018-06-17] MEDS: Famotidine 20 MG TAB PO SCH ×2 (08:29→20:46)
[2018-06-17] MEDS: Aspirin 81 mg Enteric Coated Tablet PO SCH ×2 (08:29→20:46)
[2018-06-17] MEDS: Loratadine 10 MG TAB PO SCH (08:29)
[2018-06-17] MEDS: Insulin Regular 300 UNITS/3 ML VIAL SC PRN ×3 (11:44→20:49)
--- NOTE | 2018-06-17 16:03 | PRG ---
DATE OF SERVICE: 06/17/2018 SUBJECTIVE: She is a 78-year-old female patient, status post fall from bed with a left supracondylar fracture, status post fixation. The patient was seen this morning sitting up in a chair with her left upper extremity in a sling. She reported pain was well controlled and she was tolerating her diet. Denied any other complaints at that time. Reported that she slept well overnight. She is pending placement at a rehab facility. OBJECTIVE: VITAL SIGNS: Temperature 98.1, pulse 80, respirations 14, oxygen saturation 92% on room air, and blood pressure 162/84. GENERAL: Alert and well-appearing elderly female, sitting up in chair. NEUROLOGIC: GCS is 15. Alert and oriented x3. Gross motor and sensation intact. Pupils are equal, round, and reactive to light. PULMONARY: No signs of acute distress. Equal chest rise and fall. Lung briones clear bilaterally. HEART: Regular rate and rhythm. No murmurs, gallops, or rubs. GI: Abdomen is soft, nontender, and nondistended. Positive bowel sounds. EXTREMITIES: Gross motor and sensation intact in all 4 extremities, 2+ pulses present in all extremities, no swelling noted. LABORATORY FINDINGS: Sodium 134, potassium 3.6, chloride 103, carbon dioxide 21, BUN 7, creatinine 0.70, glucose 150, phosphorus 3.1, and magnesium 1.6. DIAGNOSTIC FINDINGS: There are no diagnostic findings to report. ASSESSMENT: 1. Status post fall from bed. 2. Left supracondylar fracture. 3. History of dementia, coronary artery disease, hyponatremia, osteoporosis, hypertension, and diabetes. PLAN: The patient will continue to be provided with supportive therapy such as physical and occupational therapy. We will continue her pain management and diet as previously prescribed. She is pending placement at a rehab facility at this time. She is medically ready for discharge. The patient was seen and examined by Dr. Mays this morning during rounds. Job ID: [id number]
[2018-06-18] MEDS: Acetaminophen 500 MG TAB PO SCH ×3 (02:32→14:22)
[2018-06-18] MEDS: Insulin Regular 300 UNITS/3 ML VIAL SC PRN ×2 (06:47→16:13)
[2018-06-18 07:18] LABS: #Eosinphils 0.6 thou/uL (0.0-0.7); #Lymphocytes 1.7 thou/uL (1.20-3.40); #Monocytes 0.5 thou/uL (0.11-0.59); #Neutrophils 4.1 thou/uL (1.40-6.50); %Basophils 0.4 % (0.0-1.0); %Eosinophils 8.5 % (0.0-10.0); Hemoglobin 9.3 g/dL (12.0-16.0); Mean Corpuscular HGB CONC 32.2 g/dL (32.0-36.0); Mean Corpuscular Hemoglobin 27.6 pg (27.0-31.0); Mean Corpuscular Volume 85.7 fL (78.0-98.0); Mean Platelet Volume 7.6 fL (7.4-10.4); Platelet Count 167 thou/uL (130-400); RBC Distribution Width 16.3 % (11.5-14.5); Red Blood Cell (RBC) Count 3.37 mill/uL (4.20-5.40); White Blood Cell (WBC) Count 6.9 thou/uL (4.8-10.8)
[2018-06-18 07:35] LABS: Anion Gap 11 mmol/L (10-20); BUN (Urea Nitrogen) 9 mg/dL (9.8-20.1); Calc. Creatinine Clearance 83 mL/min (70-130); Calcium 9.1 mg/dL (7.8-10.44); Carbon Dioxide 24 mmol/L (23-31); Chloride 103 mmol/L (98-107); Estimated GFR-MDRD 80; Glucose 139 mg/dL (83-110); Magnesium 1.3 mg/dL (1.6-2.6); Phosphorus 3.3 mg/dL (2.3-4.7); Potassium 3.8 mmol/L (3.5-5.1); Sodium 134 mmol/L (136-145)
[2018-06-18] MEDS: Loratadine 10 MG TAB PO SCH (08:07)
[2018-06-18] MEDS: Aspirin 81 mg Enteric Coated Tablet PO SCH (08:07)
[2018-06-18] MEDS: TROSPIUM 20 MG TABLET PO SCH (08:07)
[2018-06-18] MEDS: Carvedilol 6.25 MG TAB PO SCH (10:02)
[2018-06-18 11:28] VITALS: TEMP 97.9
[2018-06-18 16:10] VITALS: BP 173/77
[2018-06-18] MEDS: cloNIDine 0.1 MG TAB PO PRN (16:10)
--- NOTE | 2018-06-19 10:50 | DIS ---
DATE OF ADMISSION: 06/14/2018 DATE OF DISCHARGE: 06/18/2018 ADMISSION DIAGNOSES: 1. Status post mechanical fall from bed. 2. Left supracondylar fracture. DISCHARGE DIAGNOSES: Status post mechanical fall from bed and left supracondylar fracture. CONSULTING PHYSICIAN: Anival Barrios MD PROCEDURES: Status post fixation of left elbow fracture. HOSPITAL COURSE: Ms. Yoon is a 78-year-old female patient who reported to the emergency department after falling out of bed. Upon evaluation in the emergency department, she was noted to have a left supracondylar fracture. Dr. Barrios with Orthopedic Surgery was consulted, who reported wanting to take the patient to the OR the next day for fixation. She went to the OR on June 14, 2018 with no complications. Postop, she worked with physical and occupational therapy. Her home medications were restarted as indicated. She was tolerating a diabetic diet, having regular bowel movements. Pain was well controlled and urinating without difficulties by the time of discharge. [facility] with followup with Dr. Barrios in 14 days. DISCHARGE DISPOSITION: longterm facility. DISCHARGE CONDITION: Satisfactory. PHYSICAL EXAMINATION: VITAL SIGNS: Temperature 97.9, pulse 83, respirations 14, oxygen saturation 94% on room air. GENERAL: Well-appearing female, alert and oriented, sitting up in a chair. NEURO: GCS is 15. Alert and oriented x3. Gross motor and sensation intact. Pupils are equal, round, reactive to light. PULMONARY: No signs of acute distress. Equal chest rise and fall. Lung briones are clear bilaterally. HEART: Regular rate and rhythm. No murmurs, gallops, or rubs. GI: Abdomen is soft, nontender, and nondistended. Positive bowel sounds. EXTREMITIES: Gross motor and sensation intact in all four extremities. 2+ pulses in all extremities. No swelling noted. DISCHARGE INSTRUCTIONS: The patient is to keep her left upper extremity in a sling. She is to have a diabetic diet with supplementation with Mighty Shakes. She is to have occupational and physical therapy as well as incentive spirometry. She will be discharged home with medications. DISCHARGE MEDICATIONS: 1. Raloxifene. 2. Tolterodine tartrate. 3. Claritin. 4. Metformin. 5. Clonidine. 6. Omeprazole. 7. Ibuprofen. 8. Lasix. 9. Carvedilol. 10. Aspirin. 11. Tylenol. FOLLOWUP APPOINTMENTS: She is to follow up with Dr. Barrios in four weeks. Follow up with her primary care doctor and within one week and no formal followup indicated with Dr. Mays. This is merely a summary of the patient's hospitalization. For further details, please see her medical record in its entirety. Job ID: [id number]
--- NOTE | 2018-06-19 11:24 | OP ---
DATE OF PROCEDURE: 06/13/2018 PREOPERATIVE DIAGNOSIS: Left supracondylar distal humerus fracture. POSTOPERATIVE DIAGNOSIS: Left supracondylar distal humerus fracture. SURGICAL PROCEDURE: Closed reduction, percutaneous pin stabilization of left distal humerus. ANESTHESIA: General. SENIOR VICE PRESIDENT & GENERAL COUNSEL: Nelly Iglesias PA-C TOURNIQUET TIME: Zero. IMPLANTS: K-wires measuring 5/64 of inch x3. COMPLICATIONS: None. DRAINS: None. SPECIMEN: None. OUTCOME: Near-anatomic alignment. INDICATIONS FOR PROCEDURE: The patient is a 78-year-old lady, status post fall sustaining a minimally-displaced supracondylar distal humerus fracture. The patient is in poor health with extensive comorbidities. Given her overall health, we proposed proceeding with a surgical procedure that would require minimal incision. Hopefully, minimal operating room time and not provide absolute rigid fixation, but hopefully enough stability that further mobilization will achieve healing. The patient's family appear comfortable with this plan. Informed consent has been obtained. DESCRIPTION OF PROCEDURE: The patient was brought to the operating room and a time-out performed followed by induction of general anesthesia. The patient was left supine on the OR table with the left arm on an armboard. A sterile prep and drape was then performed of this arm. Under C-arm imaging, the fracture could be reduced to a near-anatomical alignment. Once reduced, three K-wires were placed percutaneously. The first two were passed along the radial aspect of the distal humerus coming just distal to the radial epicondyle. The K-wires were introduced through the distal fragment across the fracture line and then delivered up the lateral column catching the far medial cortex of the distal humeral shaft. There was found to be just a little bit of translation following this; however, this was felt to be acceptable. Next, careful palpation was performed medially. The medial epicondyle could be easily palpated and there was felt not to be any evidence of an ulnar nerve even though it was displaced. Given this, a third K-wire was passed at the medial epicondyle, again delivered up to medial column into the far lateral distal shaft cortex. At the completion of this, there was excellent alignment on both AP and lateral, with just a slight degree of medial shift on the AP view, but near-anatomical alignment on the lateral. This was felt to be acceptable and if healed in this position, we would anticipate good functional outcome. As such, the K-wires were cut proud of the skin, bent to right angle, dressed with Xeroform and then a long-arm posterior fiberglass splint was applied to the arm. The patient was then transferred to recovery room in stable condition. There were no complications. She tolerated the procedure well. Job ID: [id number]
== END 2018-06-18 17:09 | DRG 493 ==
LOC: ERS 00:20 → ERHOLD 02:04 → SURG A 13:25 → OBSVTOIN 06-14 12:12
PROVIDERS: ADMIT Specialist; ATTEND Specialist
PROC: 0PSG34Z Reposition Left Humeral Shaft with Internal Fixation Device, Percutaneous Approach (ICD-10-PCS; principal; 2018-06-13)
DX: S42.412A Displaced simple supracondylar fracture without intercondylar fracture of left humerus, initial encounter for closed fracture (principal); E87.1 Hypo-osmolality and hyponatremia; E11.9 Type 2 diabetes mellitus without complications; F03.90 Unspecified dementia, unspecified severity, without behavioral disturbance, psychotic disturbance, mood disturbance, and anxiety; G89.11 Acute pain due to trauma; I25.10 Atherosclerotic heart disease of native coronary artery without angina pectoris; M81.0 Age-related osteoporosis without current pathological fracture; I10 Essential (primary) hypertension; Z79.84 Long term (current) use of oral hypoglycemic drugs; Z79.82 Long term (current) use of aspirin; Z95.2 Presence of prosthetic heart valve; Z79.899 Other long term (current) drug therapy; W06.XXXA Fall from bed, initial encounter
CPT/HCPCS: 36415; 36416; 71045; 76000; 80048; 80053; 81001; 82533; 83735; 83930; 83935; 84100; 84300; 84443; 85025; 87086; 93005; 93010; G0390; J0131; J1815; J1885; J2001; J2270; J2704; J3010; J3475; J7050

== ENCOUNTER 2018-08-29 07:56 | Emergency (ER) | payer MEDICARE, OTHER ==
--- NOTE | 2018-08-29 09:07 | CT ---
Exam: CT brain without contrast HISTORY: Altered mental status and right eye pain COMPARISON: MRI brain 04/05/2011 TECHNIQUE: Multiple contiguous axial images were obtained and a CT of the brain without contrast. FINDINGS: There are scattered hypodensities in the subcortical and periventricular white matter consi stent with small vessel ischemic disease. There are no confluent areas of infarction. There is no isidro dence of hydrocephalus, intracranial hemorrhage, or extra-axial fluid collection. The calvarium and overlying soft tissues are unremarkable. The visualized paranasal sinuses and masto id air cells are well aerated. IMPRESSION: No evidence of acute intracranial abnormality
[2018-08-29] MEDS ORDERED: Fluorescein Opthalmic Strip ONE (09:14)
[2018-08-29] MEDS ORDERED: Proparacaine 0.5% Opth 15 ML BOT ONE (09:14)
[2018-08-29 10:09] LABS: #Eosinphils 0.1 thou/uL (0.0-0.7); #Lymphocytes 1.6 thou/uL (1.20-3.40); #Monocytes 0.5 thou/uL (0.11-0.59); #Neutrophils 7.3 thou/uL (1.40-6.50); %Basophils 0.2 % (0.0-1.0); %Eosinophils 0.9 % (0.0-10.0); %Lymphocytes 16.6 % (21.0-51.0); %Monocytes 5.5 % (0.0-10.0); %Neutrophils 76.8 % (42.0-75.0); Hemoglobin 11.4 g/dL (12.0-16.0); Mean Corpuscular HGB CONC 32.1 g/dL (32.0-36.0); Mean Corpuscular Hemoglobin 28.2 pg (27.0-31.0); Mean Corpuscular Volume 87.7 fL (78.0-98.0); Mean Platelet Volume 7.5 fL (7.4-10.4); Platelet Count 159 thou/uL (130-400); Red Blood Cell (RBC) Count 4.03 mill/uL (4.20-5.40); White Blood Cell (WBC) Count 9.6 thou/uL (4.8-10.8)
[2018-08-29 10:33] LABS: ALT (SGPT) 24 U/L (8-55); AST (SGOT) 34 U/L (5-34); Albumin 3.9 g/dL (3.4-4.8); Alkaline Phosphatase 65 U/L (40-150); Anion Gap 16 mmol/L (10-20); BUN (Urea Nitrogen) 10 mg/dL (9.8-20.1); Bilirubin, Total 0.8 mg/dL (0.2-1.2); Calc. Creatinine Clearance 0 mL/min (70-130); Calcium 9.5 mg/dL (7.8-10.44); Carbon Dioxide 23 mmol/L (23-31); Chloride 104 mmol/L (98-107); Estimated GFR-MDRD 68; Globulin 3.4 g/dL (2.4-3.5); Glucose 157 mg/dL (83-110); Potassium 3.7 mmol/L (3.5-5.1); Protein, Total 7.3 g/dL (6.0-8.3); Sodium 139 mmol/L (136-145)
== END 2018-08-29 11:23 | disposition home or self-care (01) ==
LOC: ERS 07:56
DX: K04.7 Periapical abscess without sinus (principal); I10 Essential (primary) hypertension; E11.9 Type 2 diabetes mellitus without complications; E87.1 Hypo-osmolality and hyponatremia; F03.90 Unspecified dementia, unspecified severity, without behavioral disturbance, psychotic disturbance, mood disturbance, and anxiety; Z79.899 Other long term (current) drug therapy; Z79.82 Long term (current) use of aspirin
CPT/HCPCS: 36415; 36416; 70450; 80053; 84484; 85025; 93005

== ENCOUNTER 2018-09-02 13:28 | Observation (INO) | payer MEDICARE, OTHER ==
[~2018-09-02 13:28] MED LIST changes: -ISOVUE-370 76%-LOCM 1 ML ONE; +Iopamidol 300 61% 100 ML VIAL FS ONE; -Iopamidol 370 76% 50 ML VIAL FS ONE
[2018-09-02] MEDS ORDERED: Ondansetron PF 4 MG/2 ML Vial ONE (14:22)
[2018-09-02] MEDS ORDERED: Morphine 4 MG/ML VIAL ONE (14:22)
[2018-09-02] MEDS ORDERED: Proparacaine 0.5% Opth 15 ML BOT ONE (14:22)
[2018-09-02 14:29] LABS: #Basophils 0.1 thou/uL (0.0-0.2); #Eosinphils 0.2 thou/uL (0.0-0.7); #Lymphocytes 2.6 thou/uL (1.20-3.40); #Monocytes 0.7 thou/uL (0.11-0.59); #Neutrophils 5.9 thou/uL (1.40-6.50); %Basophils 1.1 % (0.0-1.0); %Eosinophils 1.9 % (0.0-10.0); %Lymphocytes 27.7 % (21.0-51.0); %Monocytes 7.1 % (0.0-10.0); %Neutrophils 62.2 % (42.0-75.0); Hemoglobin 12.5 g/dL (12.0-16.0); Mean Corpuscular HGB CONC 30.8 g/dL (32.0-36.0); Mean Corpuscular Hemoglobin 27.6 pg (27.0-31.0); Mean Corpuscular Volume 89.5 fL (78.0-98.0); Platelet Count 182 thou/uL (130-400); RBC Distribution Width 16.8 % (11.5-14.5); Red Blood Cell (RBC) Count 4.54 mill/uL (4.20-5.40); White Blood Cell (WBC) Count 9.4 thou/uL (4.8-10.8)
[2018-09-02 14:43] LABS: Anion Gap 21 mmol/L (10-20); BUN (Urea Nitrogen) 34 mg/dL (9.8-20.1); CRP (Inflammatory) Less than 0.50 mg/dL (= or < 0.5); Calc. Creatinine Clearance 0 mL/min (70-130); Calcium 9.9 mg/dL (7.8-10.44); Carbon Dioxide 16 mmol/L (23-31); Chloride 110 mmol/L (98-107); Estimated GFR-MDRD 37; Glucose 112 mg/dL (83-110); Sodium 143 mmol/L (136-145)
[2018-09-02 15:12] LABS: Base Excess-Venous -7.7 mmol/L (-2.0 to 3.0); Bicarbonate (HCO3v) 17.2 mmol/L (22.0-28.0); CO2 Tension (PvCO2) 32.3 mmHg (40.0-50.0); Calcium, Ionized 1.18 mmol/L (See Comments:); Chloride 114 mmol/L (98-107); Hemoglobin - Calc 13.3 g/dL (12.0-16.0); O2 Tension (PvO2) 72.1 mmHg (35.0-45.0); Potassium 3.8 mmol/L (3.5-5.1); Sodium 142 mmol/L (138-145); T. Carbon Dioxide 18.2 mmol/L (22.0-28.0); pH (Venous) 7.333 (7.320-7.430); vO2 Saturation-calc 93.4 % (60.0-85.0)
[2018-09-02 15:22] LABS: Acetaminophen Less than 6.0 mcg/mL (10.0-30.0); Alcohol Less than 10 mg/dL (Less than 10); Salicylate Less than 8.0 mg/dL (15.0-30.0)
[2018-09-02] MEDS ORDERED: predniSONE 20 MG TAB ONE (15:29)
[2018-09-02] MEDS ORDERED: Aspirin Chewable 81 MG TAB ONE (15:29)
--- NOTE | 2018-09-02 15:50 | CT ---
CT pelvis with IV contrast HISTORY: Right facial pain. Unable to open mouth. FINDINGS: There is marked flattening of the articular surface of each mandibular condyle. Erosions in volve the apex of the articular surface on the right. Prominent osteophytosis and joint space narrowing. Mastoid air cells and visualized paranasal sinuses remain well-aerated. Salivary glands are symmetric. No focal fluid collections are apparent around the right jaw. Nonenlar ged, nonspecific lymph nodes throughout each side of the neck. Prominent calcification at each carotid bifurcation with significant stenosis of the proximal portion of each internal carotid artery, worse on the left than the right. 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 No acute inflammatory abnormalities of the face are apparent. Atherosclerosis with significant stenoses of each proximal internal carotid artery.
[2018-09-02] MEDS ORDERED: Morphine 4 MG/ML VIAL SLOW IVP PRN (19:14)
[2018-09-02] MEDS ORDERED: Morphine 2 MG/ML SYRINGE SLOW IVP PRN (19:14)
[2018-09-02] MEDS ORDERED: HYDROcodone/Acetaminophen 5/325 mg Tablet PO PRN ×2 (19:15)
[2018-09-02] MEDS ORDERED: Acetaminophen 325 MG TAB PO PRN (19:15)
[2018-09-02] MEDS ORDERED: Sodium Chloride 0.9% 1,000 ML IV SCH (19:15)
[2018-09-02] MEDS ORDERED: Ondansetron PF 4 MG/2 ML Vial IVP PRN (19:15)
[2018-09-02] MEDS ORDERED: Ondansetron ODT 8 MG TAB PO PRN (19:16)
[2018-09-02 19:53] VITALS: BMI 25.0
[2018-09-02] MEDS ORDERED: predniSONE 20 MG TAB PO SCH (21:00)
[2018-09-02] MEDS ORDERED: carBAMazepine 100 mg Chewable Tablet PO SCH (21:00)
[2018-09-02] MEDS ORDERED: Ondansetron ODT 4 MG TAB PO PRN (22:23)
[2018-09-02] MEDS ORDERED: Carvedilol 6.25 MG TAB PO SCH ×2 (23:00→23:15)
--- NOTE | 2018-09-03 04:00 | HP ---
PRIMARY CARE PHYSICIAN: Antoni Bunch MD. CHIEF COMPLAINT: Right facial pain. HISTORY OF PRESENT ILLNESS: Ms. Yoon is a 78-year-old female with past medical history of hypertension, diabetes mellitus type 2, osteoporosis, hyponatremia, who had presented to [facility] for persistent right facial pain that she states has been going on for quite some time now. She was recently seen in the emergency department last Sunday and workup was suspicious for possible dental abscess. Therefore, she was treated with pain management and antibiotics, she was then discharged with an outpatient followup with her PCP and dentist, she had followed up with the dentist on Sunday who had then referred her to an oral surgeon, she was seen by the oral surgeon earlier today who had determined that this was not due to a dental abscess that this was an ophthalmic problem, she then was referred to an [facility]ister hand where she has a followup on Sunday. However, due to her increased pain, she had decided to come back to the ER for further management. She denied any fever or chills. She states right-sided facial pain is worse with light, she had denied any history of migraines, however. She denied any chest pain, palpitations, shortness of breath, abdominal pain, nausea, or vomiting. She states she was taking Tylenol and ibuprofen at home which had temporarily relieved her pain. She had denied any pain with eating and denied any temporal pain. She had denied any affects with vision or any blurred vision. She had denied any onset of rash. She states that this pain comes and goes and is usually worse when she looks at a bright light. She was transferred to [facility] for further workup and management of her symptoms. She was transferred to the medical floor where she was later seen by myself. At that time, she had denied any further pain and had denied any other symptoms. Her workup in the emergency department included a CT facial bone with contrast, which showed severe osteoarthritic changes of the temporomandibular joints, worse on the right than the left, no acute inflammatory abnormalities of the face are apparent with arthrosclerosis with significant stenosis of each proximal internal carotid artery noted. Looking back at her workup from her recent ER visit, she underwent a CT brain without contrast on 08/29/2018, which showed scattered hypodensities in the subcortical and periventricular white matter consistent with small vessel ischemic changes. However, there were no areas or signs of an acute infarct. It was noted that her sedimentation rate elevated today at 71. Creatinine was also elevated at 1.38 and BUN 34 with an estimated GFR of 37. CRP was within normal limits and less than 0.5. At this time, the underlying cause is secondary to migraine versus temporal arteritis versus trigeminal neuralgia, Neurology Services were consulted, which is pending at this time, and she was started on symptomatic management including home Tegretol and oral prednisone. REVIEW OF SYSTEMS: All other systems reviewed and found to be negative unless mentioned in the HPI. PAST MEDICAL HISTORY: Significant for hypertension, diabetes mellitus type 2, osteoporosis, hyponatremia, and aortic valve replacement. PAST SURGICAL HISTORY: Basal cell carcinoma removal, aortic valve replacement, cardiac catheterization, tonsillectomy, tubal ligation, cholecystectomy, bilateral rotator cuff repair, right ankle surgery, right foot surgery. PSYCHIATRIC HISTORY: Dementia. SOCIAL HISTORY: The patient denies any alcohol, tobacco, or illicit drug use. KNOWN ALLERGIES: None. CURRENT HOME MEDICATIONS: 1. Clonidine 0.1 mg p.o. p.r.n. hypertension. 2. Tolterodine 4 mg p.o. daily. 3. Raloxifene 60 mg p.o. daily. 4. Carvedilol 40 mg p.o. b.i.d. 5. Aspirin 81 mg b.i.d. 6. Metformin 500 mg p.o. b.i.d. 7. Omeprazole 20 mg p.o. b.i.d. 8. Ibuprofen 200 mg p.o. daily p.r.n. pain. 9. Furosemide 20 mg p.o. p.r.n. lower extremity edema. 10. Cetirizine 10 mg p.o. daily. 11. Acetaminophen 1000 mg p.o. four times daily as needed for pain. PHYSICAL EXAMINATION: VITAL SIGNS: BP 157/76, pulse 85, respirations 20, temp 98.1 degrees Fahrenheit, O2 saturations 92% on room air. GENERAL: The patient is awake, alert, and oriented x3. No acute distress noted. HEENT: Atraumatic, normocephalic. Pupils are round and reactive to light. Extraocular muscles intact. Moist mucous membranes noted. Nontender at the temporal area. Nontender over zygomatic arch or TMJ. Pain is nonreproducible on exam. NECK: Soft and supple. Trachea midline. CARDIOVASCULAR: Positive S1 and S2. Regular rate and rhythm. No murmur auscultated. RESPIRATORY: Clear to auscultation bilaterally. No wheezes, rales, or rhonchi. ABDOMEN: Soft, nontender. Bowel sounds present. BACK: Normal range of motion. No CVA tenderness. MUSCULOSKELETAL: Strength 5+ bilaterally upper and lower extremities. Moves all extremities equal. NEUROLOGIC: Cranial nerves 2 through 12 grossly intact. No focal deficits noted. Speech intact and normal. Gait not assessed. SKIN: Warm, dry, and intact. No rashes or ulcerations noted. PSYCHIATRIC: Good mood and affect. LABORATORY DATA: WBC 9.4, RBC 4.54, hemoglobin 12.5, platelet 182. ESR 71. Sodium 143, potassium 4.0, anion gap 21, BUN 34, creatinine 1.38, estimated GFR 37, glucose 112. Lactic acid 1.0. CRP less than 0.50. Toxicology screen showed acetaminophen less than 6.0. Plasma alcohol less than 10. Salicylates less than 8.0. DIAGNOSTIC IMAGING: CT facial bones with contrast showed severe osteoarthritic changes of the TMJ, worse on the right than the left with no acute inflammatory abnormalities of the face are apparent. Atherosclerosis with significant stenosis of each proximal internal carotid artery noted. ASSESSMENT AND PLAN: 1. Right-sided facial pain, the etiology is unclear at this time. Suspect migraine versus trigeminal neuralgia versus temporal arteritis. The patient was seen by an oral surgeon today who had ruled out dental abscess, he had also determined that this is likely ophthalmic in nature. She has a followup with twister hand on Sunday. Continue symptomatic management, including oral prednisone and carbamazepine. Neurology consult placed along with MRI and carotid Doppler. 2. Concern for significant stenosis of internal carotid artery, await carotid Doppler. 3. Hypertension, the patient will be placed on her home regimen and vital signs monitored closely. 4. Diabetes mellitus type 2. Continue on insulin sliding scale with frequent Accu-Cheks. 5. History of dementia, currently stable at this time. 6. Deep venous thrombosis and gastrointestinal prophylaxis. 7. Code status, full code. 8. Surrogate decision makers will be her children, Vincent and Nisa. DISPOSITION: Pending further workup and clinical findings. Job ID: [id number]
[2018-09-03 06:35] LABS: #Lymphocytes 1.6 thou/uL (1.20-3.40); #Monocytes 0.1 thou/uL (0.11-0.59); #Neutrophils 3.7 thou/uL (1.40-6.50); %Eosinophils 0.1 % (0.0-10.0); %Lymphocytes 29.1 % (21.0-51.0); %Monocytes 1.7 % (0.0-10.0); %Neutrophils 69.1 % (42.0-75.0); Mean Corpuscular HGB CONC 32.2 g/dL (32.0-36.0); Mean Corpuscular Hemoglobin 29.2 pg (27.0-31.0); Mean Corpuscular Volume 90.7 fL (78.0-98.0); Mean Platelet Volume 7.8 fL (7.4-10.4); Platelet Count 154 thou/uL (130-400); RBC Distribution Width 16.4 % (11.5-14.5); Red Blood Cell (RBC) Count 3.79 mill/uL (4.20-5.40); White Blood Cell (WBC) Count 5.3 thou/uL (4.8-10.8)
[2018-09-03 06:55] LABS: Anion Gap 16 mmol/L (10-20); BUN (Urea Nitrogen) 27 mg/dL (9.8-20.1); Calc. Creatinine Clearance 61 mL/min (70-130); Calcium 9.1 mg/dL (7.8-10.44); Carbon Dioxide 17 mmol/L (23-31); Chloride 113 mmol/L (98-107); Estimated GFR-MDRD 67; Glucose 136 mg/dL (83-110); Potassium 3.9 mmol/L (3.5-5.1); Sodium 142 mmol/L (136-145)
--- NOTE | 2018-09-03 08:18 | ULT ---
BILATERAL CAROTID DUPLEX ULTRASOUND: HISTORY: Carotid stenosis TECHNIQUE: Grayscale, color-flow and spectral Doppler ultrasound imaging of the extracranial carotid artery syst ems was performed bilaterally. FINDINGS: Scattered atherosclerotic plaque formation is present. The peak systolic velocity in the right ICA measures 74 cm/s. The peak systolic velocity in the left ICA measures 57 cm/s. Vertebral flow: antegrade, bilaterally. . IMPRESSION: No hemodynamically significant stenosis of Both ICAs.
[2018-09-03] MEDS ORDERED: Fioricet 325/50/40 mg Tablet PO PRN (08:27)
[2018-09-03] MEDS: Famotidine 20 MG TAB PO SCH (10:12)
[2018-09-03] MEDS: Enoxaparin Sodium 40 MG/0.4 ML SYRINGE SC SCH (10:13)
[2018-09-03] MEDS: predniSONE 20 MG TAB PO SCH ×2 (10:14→20:56)
[2018-09-03] MEDS: Aspirin 81 mg Enteric Coated Tablet PO SCH ×2 (10:14→20:56)
[2018-09-03] MEDS: Carvedilol 6.25 MG TAB PO SCH ×2 (10:18→17:04)
[2018-09-03] MEDS: Trospium 20 MG TAB PO SCH (10:28)
[2018-09-03] MEDS: cloNIDine 0.1 MG TAB PO PRN (12:02)
--- NOTE | 2018-09-03 12:18 | MRI ---
MRI OF BRAIN WITHOUT CONTRAST: 09/03/18 HISTORY: Headache. COMPARISON: Correlation is made with the CT scan of 08/29/18. There are multiple foci of T2 prolongation of the periventricular white matter consistent with chroni c small vessel ischemic disease. The ventricular size is appropriate for the degree of atrophy. The b asilar cisterns are patent. No restricted diffusion is seen. No evidence of infarct, hemorrhage, midline shift or abnormal extra- axial fluid collections are seen. The visualized paranasal sinuses and mastoid air cells are well aer ated. IMPRESSION: 1. No evidence of acute intracranial process. 2. Chronic small vessel ischemic disease. POS: [facility]
[2018-09-03] MEDS ORDERED: traMADol HCl 50 MG TAB PO PRN (13:00)
[2018-09-03] MEDS: traMADol HCl 50 MG TAB PO SCH (17:03)
[2018-09-03] MEDS: Dextrose 5 %-0.45 % NaCl 1,000 ML IV SCH (17:04)
[2018-09-03] MEDS ORDERED: predniSONE 20 MG TAB PO SCH (17:15)
--- NOTE | 2018-09-03 18:02 | PDOC.PN ---
- Subjective Encounter Start Date: 09/03/18 Encounter Start Time: 14:00 Subjective: Patient with complaints of pain in right eye, guarding eye and -: reluctant to take towel off her eye as she is afraid light will cause pain -: Denies any headache. No n/v. Has been refusing to eat due to pain. Patient unable to describe pain but states it is directly below her right eye. nonradiating. Occasional pain in her eye. Pain made worse with talking or eating, though she denies any pain when opening/closing her mouth. It comes on suddenly. Some relief with Tramadol, states improved from 5/10 to 3/10. No scalp tenderness. No headache. No n/v. No dizziness. No vision or speech changes. Weakness in left hand since recent fall, but no new weakness. has not noted any rash or skin changes. - Objective Resuscitation Status - Order Detail: 09/02/18 22:23 Resuscitation Status Routine Co-Sign Provider: Resuscitation Status: FULL: Full Resuscitation Vital Signs & Weight: Vital Signs (12 hours) Temp Pulse Resp BP BP Pulse Ox 09/03/18 17:04 181/84 H 09/03/18 16:00 82 20 196/79 H 92 L 09/03/18 13:15 167/88 H 09/03/18 12:02 183/80 H 09/03/18 11:54 183/84 H 09/03/18 11:00 98.0 F 73 20 193/71 H 95 09/03/18 10:18 157/76 H 09/03/18 08:32 98.2 F 83 18 182/82 H 94 L Weight Admit Weight 150 lb 11.2 oz Weight 150 lb 11.2 oz I&O: 09/02/18 09/03/18 09/04/18 06:59 06:59 06:59 Intake Total 2300 Balance 2300 Result Diagrams: 09/03/18 06:21 09/03/18 06:21 Phys Exam - Physical Examination Appears to be in discomfort intermittently when speaking HEENT: PERRLA, oral pharynx no lesions Able to tolerate direct light to both eyes, EOM normal, no nystagmus. sclerae clear. Visual briones intact. No pain throughout eye examination. Neck: no nodes, supple, full ROM no cervical spine tenderness. no temporal tenderness or scalp tenderness No TMJ abnormality or tenderness. Respiratory: no wheezing, no rales, no rhonchi, clear to auscultation bilateral Cardiovascular: RRR Gastrointestinal: soft, non-tender, no distention, positive bowel sounds Musculoskeletal: no edema Neurological: non-focal, normal sensation Able to move all limbs but guarding left arm, has weakness from recent injury. Undergoing PT at home. Psychiatric: normal affect, A&O x 3 Skin: no rash, normal turgor Dx/Plan (1) Eye pain Code(s): H57.10 - OCULAR PAIN, UNSPECIFIED EYE Status: Acute Plan: CT scan and MRI normal. ESR slightly elevated at 70. Symptoms inconsistent with temporal arteritis or trigeminal neuralgia. No skin changes or pain along dermatome, therefore do not suspect any pain associated with developing herpes zoster. No visual disturbances. Would benefit from Opthalmology evaluation. Has an appointment with Opthalmology tmrw. Dr. Alvarado advised discharge and see Opthalmologist. Continue tramadol for pain which has helped. (2) NIA (acute kidney injury) Code(s): N17.9 - ACUTE KIDNEY FAILURE, UNSPECIFIED Status: Acute Plan: Encourage oral intake. Improvement in renal function following IV fluids. - Plan cont current plan of care ADDENDUM: -: Family already rescheduled opthalmology appt to . -: Per Neuro assessment, advised consult with Opthalmology. * .
[2018-09-03] MEDS: HYDROcodone/Acetaminophen 10/325 mg Tablet PO PRN (20:56)
[2018-09-03] MEDS: OXcarbazepine 300 MG TAB PO SCH (20:56)
--- NOTE | 2018-09-03 23:22 | CON ---
DATE OF CONSULTATION: 09/03/2018 CONSULTING PHYSICIAN: Hospitalist Service. IMPRESSION: Right orbital pain of uncertain etiology. PLAN: 1. Prednisone 60 mg per day. 2. Trileptal 300 mg twice a day. 3. Monitor clinical course. HISTORY OF PRESENT ILLNESS: Ms. Yoon is a 78-year-old white female who came in with complaints of right orbital pain for the last week. The pain comes and goes, but reportedly lasts for 30 minutes to an hour at a time. It is also causing some light sensitivity. She denies any vision disturbance such as double vision or blurred vision. There is no tenderness of the scalp reported. She has never had anything like this in the past. She denies any history of migraine. Since admission, she had a sedimentation rate of 71. Her CT scan of the face was only remarkable for TMJ arthritic changes. Carotid ultrasound was cleared. She had an MRI of the brain done today, which was normal. PAST MEDICAL HISTORY: Hypertension and cardiac valvular disease. PAST SURGICAL HISTORY: Pig valve implant. MEDICATIONS: Medication list was reviewed. SOCIAL HISTORY: No tobacco or alcohol use. FAMILY HISTORY: Noncontributory. REVIEW OF SYSTEMS: A 10-system review of systems is otherwise unremarkable. PHYSICAL EXAMINATION: GENERAL: She is an elderly lady with severe alopecia, lying in bed, in distress. HEENT: Pupils are equal and reactive. Conjunctivae are clear. No ptosis is present. No cranial tenderness is elicited. NECK: Supple. No lymphadenopathy. EXTREMITIES: No cyanosis, clubbing, or edema. NEUROLOGIC: She is alert and appropriate. Her speech is fluent and clear. Cranial nerves are intact. Motor exam shows equal strength. Sensation is intact to touch. No tremor or dysmetria is present. Gait is not tested. SUMMARY: This is an elderly lady with relatively new onset of right orbital pain with an elevated sedimentation rate of 71. Her symptoms are not typical of temporal arteritis given the lack of temporal artery tenderness. She does not appear to have any evidence of conjunctival injection to suggest orbital pseudotumor. Her MRI ruled out a retro-orbital process. She could be experiencing cranial neuralgia, though the duration of the painful attacks is a bit atypical. There is a less common condition, , which would be a consideration. This typically only responses to indomethacin. Going to start some prednisone tonight and try Trileptal for neuralgia to see if she responds. Continue to follow her course, try to sort this out. Job ID: [id number]
[2018-09-04] MEDS: traMADol HCl 50 MG TAB PO SCH ×3 (00:17→13:36)
[2018-09-04 08:07] LABS: #Lymphocytes 1.2 thou/uL (1.20-3.40); #Monocytes 0.1 thou/uL (0.11-0.59); #Neutrophils 4.2 thou/uL (1.40-6.50); %Basophils 0.2 % (0.0-1.0); %Lymphocytes 21.5 % (21.0-51.0); %Monocytes 2.4 % (0.0-10.0); %Neutrophils 75.8 % (42.0-75.0); Hemoglobin 11.3 g/dL (12.0-16.0); Mean Corpuscular HGB CONC 32.1 g/dL (32.0-36.0); Mean Corpuscular Hemoglobin 28.5 pg (27.0-31.0); Mean Corpuscular Volume 88.6 fL (78.0-98.0); Mean Platelet Volume 7.1 fL (7.4-10.4); Platelet Count 126 thou/uL (130-400); RBC Distribution Width 16.3 % (11.5-14.5); Red Blood Cell (RBC) Count 3.95 mill/uL (4.20-5.40); White Blood Cell (WBC) Count 5.5 thou/uL (4.8-10.8)
[2018-09-04 08:27] LABS: Anion Gap 13 mmol/L (10-20); BUN (Urea Nitrogen) 24 mg/dL (9.8-20.1); Calc. Creatinine Clearance 62 mL/min (70-130); Calcium 9.4 mg/dL (7.8-10.44); Carbon Dioxide 21 mmol/L (23-31); Chloride 112 mmol/L (98-107); Estimated GFR-MDRD 68; Glucose 168 mg/dL (83-110); Potassium 3.9 mmol/L (3.5-5.1); Sodium 142 mmol/L (136-145)
[2018-09-04] MEDS: Enoxaparin Sodium 40 MG/0.4 ML SYRINGE SC SCH (09:31)
[2018-09-04] MEDS: predniSONE 20 MG TAB PO SCH (09:33)
[2018-09-04] MEDS: Famotidine 20 MG TAB PO SCH (09:35)
[2018-09-04] MEDS: Carvedilol 6.25 MG TAB PO SCH (09:35)
[2018-09-04] MEDS: OXcarbazepine 300 MG TAB PO SCH (09:35)
[2018-09-04] MEDS: Aspirin 81 mg Enteric Coated Tablet PO SCH (09:35)
[2018-09-04] MEDS: Trospium 20 MG TAB PO SCH (09:36)
[2018-09-04] MEDS: Dextrose 5 %-0.45 % NaCl 1,000 ML IV SCH (10:35)
[2018-09-04] MEDS: HYDROcodone/Acetaminophen 10/325 mg Tablet PO PRN (10:42)
[2018-09-04] MEDS: cloNIDine 0.1 MG TAB PO PRN (11:50)
[2018-09-04 13:31] VITALS: BP 180/86; TEMP 98.5
== END 2018-09-04 13:10 | disposition home or self-care (01) ==
LOC: SCSER 13:28 → T4-B 16:25
PROVIDERS: ADMIT Emergency Medicine; ATTEND Emergency Medicine
DX: R51 Headache (principal); I10 Essential (primary) hypertension; E11.9 Type 2 diabetes mellitus without complications; M81.0 Age-related osteoporosis without current pathological fracture; E87.1 Hypo-osmolality and hyponatremia; F03.90 Unspecified dementia, unspecified severity, without behavioral disturbance, psychotic disturbance, mood disturbance, and anxiety; Z79.84 Long term (current) use of oral hypoglycemic drugs; Z79.82 Long term (current) use of aspirin; Z79.899 Other long term (current) drug therapy; Z95.4 Presence of other heart-valve replacement
CPT/HCPCS: 70487; 70551; 80048 ×3; 80307; 82330; 82435; 82803; 83605; 84132; 84295; 85014; 85025 ×3; 85652; 86140; 93880; 96361 ×4; 96372 ×2; 96374; 96375; 97139; 99285; G0378 ×2; 36415; J1650; J2270; J2405; J7512; Q0162; Q9967

== ENCOUNTER 2018-11-11 13:18 | Inpatient (IN) | payer MEDICARE, OTHER ==
[2018-11-11 14:06] LABS: #Eosinphils 0.2 thou/uL (0.0-0.7); #Lymphocytes 1.9 thou/uL (1.20-3.40); #Monocytes 0.6 thou/uL (0.11-0.59); #Neutrophils 5.1 thou/uL (1.40-6.50); %Basophils 0.5 % (0.0-1.0); %Eosinophils 2.1 % (0.0-10.0); %Lymphocytes 24.4 % (21.0-51.0); %Monocytes 7.5 % (0.0-10.0); %Neutrophils 65.6 % (42.0-75.0); Hemoglobin 10.6 g/dL (12.0-16.0); Mean Corpuscular HGB CONC 33.5 g/dL (32.0-36.0); Mean Corpuscular Hemoglobin 31.1 pg (27.0-31.0); Mean Corpuscular Volume 92.9 fL (78.0-98.0); Mean Platelet Volume 7.6 fL (7.4-10.4); Platelet Count 118 thou/uL (130-400); Red Blood Cell (RBC) Count 3.41 mill/uL (4.20-5.40); White Blood Cell (WBC) Count 7.7 thou/uL (4.8-10.8)
[2018-11-11 14:32] LABS: ALT (SGPT) 27 U/L (8-55); AST (SGOT) 33 U/L (5-34); Albumin 3.7 g/dL (3.4-4.8); Alkaline Phosphatase 61 U/L (40-150); Anion Gap 15 mmol/L (10-20); BUN (Urea Nitrogen) 9 mg/dL (9.8-20.1); Bilirubin, Total 0.6 mg/dL (0.2-1.2); Calc. Creatinine Clearance 0 mL/min (70-130); Calcium 8.5 mg/dL (7.8-10.44); Carbon Dioxide 22 mmol/L (23-31); Chloride 88 mmol/L (98-107); Estimated GFR-MDRD 82; Globulin 2.8 g/dL (2.4-3.5); Glucose 107 mg/dL (83-110); Potassium 3.5 mmol/L (3.5-5.1); Protein, Total 6.5 g/dL (6.0-8.3); Sodium 121 mmol/L (136-145)
[2018-11-11 14:41] LABS: INR-International Normal Ratio 1.2; PTT 31.2 SEC (22.9-36.1)
--- NOTE | 2018-11-11 15:09 | CT ---
CT BRAIN WITHOUT CONTRAST: Date: 11/11/18 HISTORY: Injury. Headache. FINDINGS: Comparison made with exam of 08/29/18. There is an acute left-sided subdural hematoma along the convexity. A small amount of acute subdural hemorrhage is also seen in the subtentorial region on the right. This extends posteriorly into the fa lx. There are changes of chronic small vessel ischemic disease. No evidence of acute infarct, intra-axial hemorrhage, or midline shift is seen. The bony calvarium is intact. The visualized paranasal sinuses and mastoid air cells are clear. IMPRESSION: Acute subdural hematoma. Discussed over the telephone with ER physician at 1445 hours. CODE CR. POS: OFF
[2018-11-11 16:05] LABS: Bilirubin Negative (Negative); Blood, Urine Negative (Negative); Clarity CLOUDY (Clear); Glucose, Urine (Dipstick) Negative (Negative); Leukocyte Moderate (Negative); Nitrite Positive (Negative); Protein, Urine (Dipstick) Negative (Neg-Trace); Specific Gravity, Urine 1.015 (1.002-1.036)
[2018-11-11 16:10] LABS: Bacteria/HPF 2+ HPF (None Seen); Hyaline Casts/LPF 4-6 HYALINE CAST LPF (0-3 Hyaline); Pathc Cast-AUWi Flag 0.13 (0-2.49); RBC/HPF 0-3 HPF (0-3); Squamous Epithelial None Seen HPF (0-3); WBC/HPF 21-50 HPF (0-3)
--- NOTE | 2018-11-11 16:32 | RAD ---
EXAM: Chest one view: HISTORY: Multiple falls, low serum sodium level 121 COMPARISON: 06/13/2018 FINDINGS: Bony demineralization. Postop midline sternotomy. Healed right rib fractures. Heart size: Within normal limits. The lungs: Clear of acute process. No evidence for pneumonia, pleural effusion, acute edema, or pneumothorax, or other significant acute process. IMPRESSION: No significant acute intrathoracic disease.
[2018-11-11] MEDS ORDERED: Ondansetron ODT 4 MG TAB PO PRN (16:36)
[2018-11-11] MEDS ORDERED: Dextrose 5% in Water 1,000 ML IV PRN (16:36)
[2018-11-11] MEDS ORDERED: Dextrose 50% Abboject 50 ML SYRINGE SLOW IVP PRN (16:36)
--- NOTE | 2018-11-11 16:37 | CON ---
DATE OF CONSULTATION: Ms. Yoon is a pleasant 78-year-old woman, who presents today after caregiver noted that she had altered mental status to the [facility]. CT scan of the head reveals a left-sided parieto-occipital subdural hematoma measuring roughly 4 mm to 6 mm in greatest depth. This looks to be a mixed acuity subdural mostly being subacute with some areas of lower density blood and fluid likely indicating more chronic collection in these areas as she does have history positive for multiple falls. She is not on any known blood thinning medications, though her INR is 1.2. Her sodium of note is also 121 today, so she is rather hyponatremic, which could also be another explanation for her confusion. She does have baseline mild dementia that further complicates her scenario to some degree. There is minimal compression on the underlying brain parenchyma on the CT scan, there is no midline shift. No other significant hemorrhages of note. At bedside, the patient is awake and alert. She is only oriented to her name and her date of . She does not know what year it is. She knows she is in the hospital, but does not know what the name of the hospital is. She is able to tell me she is in [facility]. She does follow commands with ease in all 4 extremities. Pupils are equally round and reactive to light. Extraocular movements are intact. Speech is uninhibited and fluid. From Neurosurgery standpoint, this represents a nonsurgical intracerebral hemorrhage, subdural in nature. She will need to hold all blood thinning medications including aspirin and NSAIDs for the time being. We would like to repeat CT scan in the morning to re-evaluate this bleeding, to ensure that it is not in fact enlarging in any away. If that is stable, Neurosurgery then want to see her in 4 to 6 weeks for outpatient followup at that time. Job ID: [id number]
[2018-11-11] MEDS ORDERED: hydrOXYzine 25 MG/ML VIAL IM SCH (20:00)
[2018-11-11 22:17] VITALS: BMI 27.6
[2018-11-11] MEDS: Gabapentin 100 MG CAP PO SCH (22:50)
[2018-11-11] MEDS: Sodium Chloride 1 GM TAB PO SCH (22:50)
[2018-11-11] MEDS: Acetaminophen 500 MG TAB PO PRN (22:50)
[2018-11-11] MEDS: Nitrofurantoin Monohyd/M-Cryst 100 MG CAP PO SCH (22:50)
[2018-11-11] MEDS: hydrALAZINE 20 MG/ML VIAL SLOW IVP PRN (23:11)
--- NOTE | 2018-11-12 02:11 | HP ---
CONSULTS: Neurosurgery. HISTORY OF PRESENT ILLNESS: This is a 78-year-old female who presented to the emergency room with multiple ground level falls over the last week. Family reports that the patient has been acting more confused over the last several days. The patient was seen by her primary care physician a couple weeks ago for extremity swelling. The patient's primary care physician told her to avoid salt and drink more water. The patient was evaluated in the emergency room and was found to have hyponatremia and subacute subdural hematoma. Trauma Service was asked to admit the patient for continued care and treatment. The patient also complained of headaches per family. On exam, patient oriented to person only. Patient follows all commands. The patient able to state she is at a hospital, but unaware where, the patient does recognize her grandson and able to state his name. The patient is slow to answer questions. When asked who the president is, she hesitates and says that is hilarious. REVIEW OF SYSTEMS: A 10-point review of systems is negative unless otherwise indicated in the above HPI. PAST MEDICAL HISTORY: Hypertension, diabetes type 2, osteoporosis, hyponatremia, aortic valve replacement, mild dementia. PAST SURGICAL HISTORY: Basal cell carcinoma removal, aortic valve replacement, cardiac catheterization, tonsillectomy, tubal ligation, cholecystectomy, bilateral rotator cuff repair, right ankle surgery, right foot surgery. SOCIAL HISTORY: Denies alcohol use. Denies tobacco use. Denies illicit drug use. The patient lives at home with family. SUBJECTIVE: VITAL SIGNS: Blood pressure 170/75, pulse 72, respirations 15, SpO2 96% on room air. GENERAL: Elderly appearing female in no acute distress, slow to answer questions, follows all commands, normal speech. HEENT: Atraumatic and normocephalic. Pupils equal bilateral. Mucous membranes slightly dry. RESPIRATORY: Equal chest rise and fall, bilateral breath sounds clear. No wheezing, rales, or rhonchi. CARDIOVASCULAR: Regular rate, regular rhythm, normal heart sounds, no pedal edema. EXTREMITIES: Moves all extremities, no obvious injuries, distal pulses 2+ in all extremities, strength 5/5. NEUROLOGIC: The patient is awake, alert, oriented to person only. GCS 14. E4, V4, M6. ALLERGIES: NO KNOWN DRUG ALLERGIES. CURRENT MEDICATIONS: 1. Coreg CR 80 mg p.o. 2 times daily. 2. Janumet for diabetes 50 mg-1000 mg oral twice daily. 3. Namenda. 4. Gabapentin 100 mg, unknown duration. 5. Oxcarbazepine 150 mg. LABORATORY DATA: WBC 7.7, RBC 3.41, hemoglobin 10.6, hematocrit 31.7, platelets 118. PT 15.0, INR 1.2, APTT 31.2. Sodium 121, potassium 3.5, chloride 88, carbon dioxide 22, BUN 9, creatinine 0.69, estimated GFR 82, glucose 107, calcium 8.5, total bilirubin 0.6, AST 33, ALT 27, alkaline phos 61. Troponin less than 0.010. Urinalysis positive nitrite, positive leukocyte esterase, positive for WBCs, 2+ bacteria, and hyaline casts. DIAGNOSTICS: 1. Brain CT, subdural hematoma, [id number]. 2. Chest x-ray, no evidence of acute intrathoracic disease, healed right rib fractures. IMPRESSION: 1. Multiple recent falls. 2. Left-sided parieto-occipital subdural hematoma measuring approximately 4 mm to 6 mm, mainly subacute. 3. Hypokalemia. 4. Urinary tract infection, on admission. PLAN: 1. Admit patient to the [facility] with q.2 neuro checks. 2. We will restrict the patient's free water intake to 1 L a day. 3. We will place the patient on p.o. sodium tablets 1 g b.i.d. and encourage Gatorade. We will re-evaluate labs in the morning. Neurosurgery has evaluated the patient and plans for repeat head CT in the morning. If patient has a decline in GCS, we will obtain a CT brain, sooner. 4. The patient will be started on antibiotics for urinary tract infection. The patient was examined with Dr. Mays in the emergency room. Neurosurgery recommendation, nonsurgical at this time. Recommends follow up with Neurosurgery in 4 to 6 weeks. We will also avoid any aspirin or NSAID products. We will place the patient on a heart healthy diet and also obtain a speech consult. We will also place a PT/OT consult. Job ID: [id number]
[2018-11-12 05:27] LABS: #Eosinphils 0.2 thou/uL (0.0-0.7); #Lymphocytes 1.9 thou/uL (1.20-3.40); #Monocytes 0.7 thou/uL (0.11-0.59); %Basophils 0.3 % (0.0-1.0); %Eosinophils 2.3 % (0.0-10.0); %Lymphocytes 27.9 % (21.0-51.0); %Monocytes 10.5 % (0.0-10.0); Hemoglobin 10.3 g/dL (12.0-16.0); Mean Corpuscular HGB CONC 34.6 g/dL (32.0-36.0); Mean Corpuscular Hemoglobin 31.8 pg (27.0-31.0); Mean Platelet Volume 7.2 fL (7.4-10.4); Platelet Count 106 thou/uL (130-400); RBC Distribution Width 14.7 % (11.5-14.5); Red Blood Cell (RBC) Count 3.23 mill/uL (4.20-5.40); White Blood Cell (WBC) Count 6.8 thou/uL (4.8-10.8)
[2018-11-12 05:45] LABS: Anion Gap 13 mmol/L (10-20); BUN (Urea Nitrogen) 8 mg/dL (9.8-20.1); Calc. Creatinine Clearance 85 mL/min (70-130); Calcium 8.4 mg/dL (7.8-10.44); Carbon Dioxide 23 mmol/L (23-31); Chloride 91 mmol/L (98-107); Estimated GFR-MDRD Greater than 90; Glucose 93 mg/dL (83-110); Phosphorus 3.6 mg/dL (2.3-4.7); Potassium 3.3 mmol/L (3.5-5.1); Sodium 124 mmol/L (136-145)
[2018-11-12 05:53] LABS: Magnesium 0.9 mg/dL (1.6-2.6)
[2018-11-12] MEDS ORDERED: Magnesium Sulfate 4 GM in Sodium Chloride 0.9% 250 ML 250 ML IVPB SCH (06:15)
[2018-11-12] MEDS: Gabapentin 100 MG CAP PO SCH ×3 (06:23→20:22)
[2018-11-12] MEDS: Acetaminophen 500 MG TAB PO PRN ×2 (06:23→20:21)
[2018-11-12] MEDS ORDERED: Potassium Chloride 20 MEQ TAB PO SCH ×2 (06:30→09:00)
[2018-11-12] MEDS ORDERED: Dextrose 50% Abboject 50 ML SYRINGE SLOW IVP PRN (07:12)
[2018-11-12] MEDS ORDERED: Dextrose 5% in Water 1,000 ML IV PRN (07:12)
[2018-11-12] MEDS ORDERED: HumaLOG 300 UNITS/3 ML VIAL SC PRN (07:12)
--- NOTE | 2018-11-12 07:38 | CT ---
CT OF THE BRAIN WITHOUT CONTRAST: Date: 11/12/18 COMPARISON: 11/11/18 at 1438 hours. HISTORY: Subdural hematoma. TECHNIQUE: Multiple contiguous axial images were obtained in a CT of the brain without contrast. FINDINGS: There is a stable extra-axial fluid collection along the left parietal convexity and extending along the posterior falx and tentorium. This measures approximately 7-8 mm in greatest thickness. No midlin e shift or downward herniation is seen. No intraventricular hemorrhage is seen. Scattered hypodensiti es in the subcortical and periventricular white matter are likely secondary to small vessel ischemic disease. The calvarium and overlying soft tissues are unremarkable. The visualized paranasal sinuses and masto id air cells are well aerated. IMPRESSION: Stable subdural hematoma. POS: [facility]
[2018-11-12] MEDS: Nitrofurantoin Monohyd/M-Cryst 100 MG CAP PO SCH ×2 (09:51→20:20)
[2018-11-12] MEDS: Sodium Chloride 1 GM TAB PO SCH ×2 (09:51→20:21)
[2018-11-12] MEDS ORDERED: cloNIDine 0.1 MG TAB PO PRN ×3 (13:06→17:13)
--- NOTE | 2018-11-12 17:45 | PRG ---
DATE OF SERVICE: 11/12/2018 SUBJECTIVE: The patient was seen this morning sitting up at edge of bed, getting up to go to the bathroom. The patient's mentation was much more improved today and more toward baseline. She had no acute events overnight. GCS was 14 and stable , which is her baseline. Repeat head CT completed this morning showed a stable subdural hematoma. OBJECTIVE: VITAL SIGNS: Temperature 97.2, pulse 68, blood pressure 154/72, and O2 saturation 96% on room air. GENERAL: Well-appearing elderly female, sitting up at the edge of bed with no signs of acute distress. PULMONARY: Equal chest rise and fall. Clear breath sounds bilaterally. No signs of acute respiratory distress. CARDIAC: Regular rate and rhythm. No murmurs, gallops, or rubs. GI: Abdomen is soft, nontender, nondistended. EXTREMITIES: 2+ pulses in all extremities. No significant swelling noted. Gross motor and sensation intact in all extremities. NEUROLOGIC: GCS is 14, -1 for confusion, which is her baseline. Gross motor and sensation intact in all extremities. Pupils are equal, round, and reactive to light bilaterally. LABORATORY FINDINGS: White count 6.8, hemoglobin 10.3, hematocrit 29.7, platelets 106. Sodium 124, potassium 3.3, chloride 91, carbon dioxide 23, BUN 8, creatinine 0.6, glucose 93, phos 3.6. DIAGNOSTIC FINDINGS: CT of the brain completed this morning demonstrates stable subdural hematoma. ASSESSMENT: 1. Status post altered mental status with recent multiple falls. 2. Subacute subdural hematoma, stable. 3. Urinary tract infection, uncomplicated. 4. Hyponatremia, improved. 5. History of dementia, hypertension, type 2 diabetes, osteoporosis, hyponatremia, and aortic valve repair. PLAN: The patient received a repeat head CT this morning, which demonstrated a stable subdural hematoma. We will follow up with Dr. Miguel for further recommendations. Restarted the patient's home medications to include Namenda, carvedilol, Zyrtec, clonidine p.r.n., iron, magnesium chloride, potassium chloride, gabapentin, pravastatin, raloxifene, and tolterodine. We will continue to hold the patient's home Lasix and metformin. We will also continue to hold Trileptal as it may be causing her severe hyponatremia. The patient is to be moved from the [facility] to the floor today. She is to work with Physical and Occupational Therapy and she has a rehab screen pending. The patient was seen and examined by Dr. Mays and myself this morning during rounds. Job ID: [id number] MTDD
--- NOTE | 2018-11-12 18:55 | PRG ---
DATE OF SERVICE: 11/12/2018 Ms. Yoon is a 78-year-old female, admitted with altered mental status. I have reviewed the note as dictated by ZEKE Reeves and reviewed her CT scans including the most recent one performed today, which shows a stable left parieto-occipital subdural hematoma with no significant mass effect. I also agree with Mr. Lyon's plan of nonoperative management. She does have baseline dementia and rather profound hyponatremia. I do not anticipate a need for evacuation either in the acute setting or likely upon followup. Followup will be arranged in approximately four weeks time. The Neurosurgical Service will sign off. Job ID: [id number]
[2018-11-12] MEDS: Carvedilol 25 MG TAB PO SCH (20:20)
[2018-11-12] MEDS: Trospium 20 MG TAB PO SCH (20:20)
[2018-11-12] MEDS: Gabapentin 300 MG CAP PO SCH (20:21)
[2018-11-12] MEDS: Atorvastatin Calcium 20 MG TAB PO SCH (20:21)
[2018-11-13] MEDS: Gabapentin 100 MG CAP PO SCH ×3 (06:04→22:05)
[2018-11-13 06:24] LABS: #Eosinphils 0.1 thou/uL (0.0-0.7); #Lymphocytes 1.7 thou/uL (1.20-3.40); #Monocytes 0.6 thou/uL (0.11-0.59); #Neutrophils 2.7 thou/uL (1.40-6.50); %Basophils 0.9 % (0.0-1.0); %Eosinophils 2.2 % (0.0-10.0); %Lymphocytes 32.5 % (21.0-51.0); %Monocytes 11.1 % (0.0-10.0); %Neutrophils 53.2 % (42.0-75.0); Hemoglobin 10.5 g/dL (12.0-16.0); Mean Corpuscular Volume 94.1 fL (78.0-98.0); Mean Platelet Volume 7.2 fL (7.4-10.4); Platelet Count 111 thou/uL (130-400); RBC Distribution Width 15.1 % (11.5-14.5); Red Blood Cell (RBC) Count 3.38 mill/uL (4.20-5.40); White Blood Cell (WBC) Count 5.1 thou/uL (4.8-10.8)
[2018-11-13 06:35] LABS: Anion Gap 12 mmol/L (10-20); BUN (Urea Nitrogen) 6 mg/dL (9.8-20.1); Calc. Creatinine Clearance 82 mL/min (70-130); Calcium 8.5 mg/dL (7.8-10.44); Carbon Dioxide 24 mmol/L (23-31); Chloride 99 mmol/L (98-107); Estimated GFR-MDRD Greater than 90; Glucose 123 mg/dL (83-110); Magnesium 1.7 mg/dL (1.6-2.6); Phosphorus 3.4 mg/dL (2.3-4.7); Potassium 3.9 mmol/L (3.5-5.1); Sodium 131 mmol/L (136-145)
[2018-11-13] MEDS ORDERED: Magnesium 2 GM/50 ML 2 GM in Premix Bag 1 BAG IVPB SCH (08:45)
[2018-11-13] MEDS ORDERED: B COMPLEX WITH VITAMIN C PO SCH (09:00)
[2018-11-13] MEDS: Gabapentin 300 MG CAP PO SCH ×2 (09:09→22:10)
[2018-11-13] MEDS: Potassium Chloride 10 MEQ TAB PO SCH (09:09)
[2018-11-13] MEDS: Carvedilol 25 MG TAB PO SCH ×2 (09:09→22:08)
[2018-11-13] MEDS: Ascorbic Acid 500 mg Chewable Tablet PO SCH (09:11)
[2018-11-13] MEDS: Ferrous Sulfate 325 MG TAB PO SCH (09:11)
[2018-11-13] MEDS: Trospium 20 MG TAB PO SCH ×2 (09:11→22:15)
[2018-11-13] MEDS: Loratadine 10 MG TAB PO SCH (09:11)
[2018-11-13] MEDS: Nitrofurantoin Monohyd/M-Cryst 100 MG CAP PO SCH ×2 (09:12→22:11)
[2018-11-13] MEDS: Sodium Chloride 1 GM TAB PO SCH ×2 (09:12→22:39)
[2018-11-13] MEDS: Magnesium Chloride 64 MG TAB PO SCH (09:13)
[2018-11-13] MEDS: Acetaminophen 500 MG TAB PO PRN ×2 (10:26→18:08)
--- NOTE | 2018-11-13 16:06 | PRG ---
DATE OF SERVICE: 11/13/2018 SUBJECTIVE: Ms. Yoon is a 78-year-old female, admitted with alter mental status. Patient was diagnosed of subdural hematoma on brain CT scan. Neurosurgeon Dr Eron Miguel was consulted. Dr Littlejohn recommend repeat brain CT scan the next day to follow up subdural hematoma, and no surgery was needed at the time. Patient was admitted to [facility]. Brain CT scan showed stable subdural hematoma. Hyponatremia was improved. Patient mental status has been improved. Patient reported no shortness of breath. No overnight events. Patient tolerated with regular diet. Patient was able to work with PT/OT. Patient had rehab screening in place and is anticipated discharging to rehab facility on November 14, 2018. OBJECTIVE: VITAL SIGNS: Temperature 98 F, pulse 58 bpm, blood pressure 120/ 58mmHg, and O2 sat is 94%. GENERAL: Patient is alert and oriented . NEUROLOGIC: GCS 14, which is the patient's baseline. Gross motor and sensation intact. HEENT: Unremarkable. NECK: Unremarkable. PULMONARY: No signs of respiratory distress. Equal chest rise and fall. LUNGS: Clear bilaterally. HEART: Regular rate and rhythm. No murmur. GI: Abdomen is soft, nontender, and nondistended. Positive bowel sound. : Unremarkable. EXTREMITIES: Motor and sensation intact. 2+ pulses in all extremities. No swelling. LABORATORY DATA: White blood count is 5.1, hemoglobin stable at 10.5. Sodium improved 131, glucose is 123. Electrolytes stable. Phosphate 3.4, magnesium 1.7, and calcium 8.5. IMPRESSION: 1. Status post altered mental status with recent multiple falls 2. subacute subdural hematoma stable. 3. Urinary tract infection, uncomplicated, 4. Hyponatremia, improved. 5. History of dementia, hypertension, type 2 diabetes, aortic valve repair PLAN: Continue Macrobid for another 3 days for UTI treatment. Continue working with PT and OT for better mobilization. Continue regular diet. Work with outpatient case manager for patient disposition plan , anticipated discharge on November 14, 2018. Exam and discuss with Dr. Mays on round this morning, who agreed with the treatment plan. Job ID: [id number] MTDD
[2018-11-13] MEDS: hydrALAZINE 20 MG/ML VIAL SLOW IVP PRN (18:11)
[2018-11-13] MEDS: Atorvastatin Calcium 20 MG TAB PO SCH (22:10)
[2018-11-13] MEDS ORDERED: Carvedilol 25 MG TAB PO SCH (22:15)
[2018-11-14 05:20] LABS: Anion Gap 13 mmol/L (10-20); BUN (Urea Nitrogen) 4 mg/dL (9.8-20.1); Calc. Creatinine Clearance 82 mL/min (70-130); Calcium 9.4 mg/dL (7.8-10.44); Carbon Dioxide 24 mmol/L (23-31); Chloride 101 mmol/L (98-107); Estimated GFR-MDRD Greater than 90; Glucose 122 mg/dL (83-110); Magnesium 1.8 mg/dL (1.6-2.6); Sodium 134 mmol/L (136-145)
[2018-11-14] MEDS ORDERED: Magnesium 2 GM/50 ML 2 GM in Premix Bag 1 BAG IVPB SCH (07:15)
[2018-11-14] MEDS ORDERED: PHOS-NAK 1 PKT PACK PO SCH (07:15)
[2018-11-14] MEDS ORDERED: Carvedilol 25 MG TAB PO SCH (09:00)
[2018-11-14] MEDS: Gabapentin 300 MG CAP PO SCH (09:39)
[2018-11-14] MEDS: Nitrofurantoin Monohyd/M-Cryst 100 MG CAP PO SCH (09:39)
[2018-11-14] MEDS: Ascorbic Acid 500 mg Chewable Tablet PO SCH (09:39)
[2018-11-14] MEDS: Ferrous Sulfate 325 MG TAB PO SCH (09:40)
[2018-11-14] MEDS: Loratadine 10 MG TAB PO SCH (09:40)
[2018-11-14] MEDS: Trospium 20 MG TAB PO SCH (09:41)
[2018-11-14] MEDS: Magnesium Chloride 64 MG TAB PO SCH (09:41)
[2018-11-14] MEDS: Potassium Chloride 10 MEQ TAB PO SCH (09:41)
[2018-11-14] MEDS: Acetaminophen 500 MG TAB PO PRN (09:52)
[2018-11-14 10:54] VITALS: BP 175/82; TEMP 98.2
--- NOTE | 2018-11-15 09:11 | EKG ---
Test Reason : Blood Pressure : / mmHG Vent. Rate : 072 BPM Atrial Rate : 072 BPM P-R Int : 178 ms QRS Dur : 090 ms QT Int : 450 ms P-R-T Axes : -05 -18 035 degrees QTc Int : 492 ms Normal sinus rhythm Voltage criteria for left ventricular hypertrophy Inferior infarct , age undetermined Anteroseptal infarct , age undetermined Abnormal ECG No change form 08/29/2018 Confirmed by LAURA RANKIN DO ([id number]), slot editor NAZ YORK ([id number]) on 11/15/2018 9:11:16 AM Referred By: Confirmed By:LAURA RANKIN DO
--- NOTE | 2018-11-15 09:57 | DIS ---
DATE OF ADMISSION: 11/11/2018 DATE OF DISCHARGE: 11/14/2018 ADMISSION DIAGNOSES: 1. Status post ground level fall. 2. Altered mental status. 3. Subacute subdural hematoma. 4. Urinary tract infection. 5. Hyponatremia. 6. History of hypertension. 7. Dementia. 8. Diabetes, type 2. 9. Aortic valve repair. DISCHARGE DIAGNOSES: 1. Status post ground level fall, 2. Altered mental status. 3. Subacute subdural hematoma. 4. Urinary tract infection. 5. Hyponatremia. 6. History of hypertension. 7. Diabetes, type 2. 8. Dementia. 9. Aortic valve repair. CONSULTING PHYSICIAN: Dr. Eron Miguel, neurosurgeon. PROCEDURE PERFORMED: None. HOSPITAL COURSE: This is a 78-year-old female, who came in due to a ground level fall and altered mental status. In the ED, the patient was having a brain CT scan and found out she has a subdural hematoma. Neurosurgeon, Dr. Eron Miguel was consulted. Dr. Littlejohn decided nonsurgical treatment. The patient was admitted to Trauma Critical Care Service. During her staying in Trauma Service, the patient was diagnosed with hyponatremia and UTI. The patient's mental status and hyponatremia were improved. UTI was resolved. The patient was able to tolerate a regular diet. The patient was working with PT and OT to prepare for rehabilitation disposition. Her home medications were adjusted and resumed. The patient was discharged today as planned. The patient was examined on rounds this morning with Dr. Mays. DISCHARGE DISPOSITION: Acute rehab facility. DISCHARGE CONDITION: Satisfactory. DISCHARGE PHYSICAL EXAMINATION: VITAL SIGNS: Temperature 98 degrees Fahrenheit , pulse 80, pulse ox 93% on room air, blood pressure 157/56. GENERAL: The patient seems to be comfortable, lying in bed, taking in full sentence, no signs of acute distress. RESPIRATORY: Equal chest rise and fall. Clear breath sounds bilaterally. CARDIAC: Regular rate and rhythm. GI: Abdomen is soft, nontender, and nondistended. EXTREMITIES: 2+ pulses in all extremities. No significant swelling noted. DISCHARGE INSTRUCTIONS: The patient was discharged to rehab facility. ACTIVITY: As tolerated. DIET: Heart-healthy diet. Restrict free water to 1 L. THERAPY INSTRUCTIONS: Physical and occupational therapies. Patient is to use walker. DISCHARGE MEDICATIONS: 1. Tylenol. 2. Vitamin C. 3. Vitamin B. 4. Carvedilol. 5. Cetirizine. 6. Clonidine. 7. Ferrous sulfate. 8. Furosemide. 9. Gabapentin. 10. Magnesium chloride. 11. Namenda. 12. Macrobid 13. Omeprazole. 14. Potassium chloride. 15. Pravastatin. 16. Raloxifene. 17. Sitagliptin/metformin. 18. Tolterodine tartrate. FOLLOWUP APPOINTMENT: Follow up with Dr. Antoni Bunch, primary care provider. PCP to work up possible SIADH. No need to follow up with trauma surgeon, Dr. Nba Mays. Please call with questions. Follow up with neurosurgeon, Dr. Eron Miguel in 4 weeks. This is nearly a summary of the patient's hospitalization. For full details, please see her chart in its entirety. Job ID: [id number] MTDD
== END 2018-11-14 12:37 | DRG 65 ==
LOC: ERS 13:18 → ERHOLD 15:23 → IMCU/EMU 21:34 → SJJU 11-13 17:04
PROVIDERS: ADMIT Surgery; ATTEND Surgery
DX: I62.02 Nontraumatic subacute subdural hemorrhage (principal); E87.1 Hypo-osmolality and hyponatremia; N39.0 Urinary tract infection, site not specified; I10 Essential (primary) hypertension; E11.9 Type 2 diabetes mellitus without complications; M81.0 Age-related osteoporosis without current pathological fracture; E87.6 Hypokalemia; F03.90 Unspecified dementia, unspecified severity, without behavioral disturbance, psychotic disturbance, mood disturbance, and anxiety; Z79.01 Long term (current) use of anticoagulants; Z95.2 Presence of prosthetic heart valve; Z98.51 Tubal ligation status; Z90.49 Acquired absence of other specified parts of digestive tract; Z91.81 History of falling
CPT/HCPCS: 36415; 36416; 70450; 71045; 80048; 80053; 81003; 81015; 83735; 84100; 84484; 85025; 85610; 85730; 93005; A4353; J0360; J3410; J3475; J7050

== ENCOUNTER 2018-11-18 14:41 | Inpatient (IN) | payer MEDICARE, OTHER ==
[~2018-11-18 14:41] MED LIST changes: +ISOVUE-370 76%-LOCM 1 ML ONE; -Iopamidol 300 61% 100 ML VIAL FS ONE
--- NOTE | 2018-11-18 14:58 | CT ---
Exam: Head CT without contrast HISTORY: Subdural hematoma. Right-sided weakness. COMPARISON: 11/12/2018, 11/11/2018. FINDINGS: Hemorrhage: Redemonstration of extra-axial blood along the left occipital and parietal convexity. Hem atoma measures 0.8 cm. There is some mass effect and sulcal effacement of the left occipital, parietal, and temporal lobe. There appears to be loss of nogueira-white matter differentiation. There is additional subdural blood along the left and right tentorium and posterior right parafalcine region. Brain parenchyma: Loss of nogueira-white matter differentiation in the left occipital, parietal, and post erior temporal lobe.Chronic small vessel ischemic changes are noted. Ventricular system: Stable configuration of the ventricular system. Calvarium: Intact. Sinuses and mastoid air cells: Adequate aeration. IMPRESSION: 1. Redemonstration of a subdural hemorrhage along the left occipital parietal convexity. Additional s ubarachnoid blood along the left and right tentorium and posterior right falx. 2. Loss of nogueira-white matter differentiation and sulcal effacement involving the left occipital, lena etal, and posterior temporal lobe. Results of study discussed with Dr. Brenner 11/18/2018 2:54 PM Code CR Transcribed Date/Time: 11/18/2018 3:05 PM
[2018-11-18] MEDS ORDERED: Lorazepam 2 MG/ML VIAL ONE ×4 (15:37→16:17)
[2018-11-18] MEDS ORDERED: levETIRAcetam 500 MG/100 ML PREMIX BAG ONE (15:45)
[2018-11-18] MEDS ORDERED: Succinylcholine Chloride 20 MG/ML 10 ml SYRINGE FS ONE (15:54)
[2018-11-18 16:07] LABS: #Basophils 0.1 thou/uL (0.0-0.2); #Eosinphils 0.2 thou/uL (0.0-0.7); #Lymphocytes 2.4 thou/uL (1.20-3.40); #Monocytes 0.9 thou/uL (0.11-0.59); #Neutrophils 5.9 thou/uL (1.40-6.50); %Basophils 0.8 % (0.0-1.0); %Eosinophils 1.6 % (0.0-10.0); %Lymphocytes 25.1 % (21.0-51.0); %Monocytes 9.7 % (0.0-10.0); %Neutrophils 62.7 % (42.0-75.0); Hemoglobin 11.4 g/dL (12.0-16.0); Mean Corpuscular HGB CONC 33.3 g/dL (32.0-36.0); Mean Corpuscular Hemoglobin 31.8 pg (27.0-31.0); Mean Corpuscular Volume 95.5 fL (78.0-98.0); Mean Platelet Volume 7.3 fL (7.4-10.4); Platelet Count 142 thou/uL (130-400); RBC Distribution Width 14.6 % (11.5-14.5); Red Blood Cell (RBC) Count 3.59 mill/uL (4.20-5.40); White Blood Cell (WBC) Count 9.5 thou/uL (4.8-10.8)
[2018-11-18] MEDS ORDERED: fentaNYL Citrate/PF 2,000 MCG in Sodium Chloride 0.9% 60 ML IV SCH (16:10)
[2018-11-18] MEDS ORDERED: Fentanyl 100 MCG/2 ML VIAL ONE ×2 (16:12→16:17)
[2018-11-18 16:13] LABS: PTT 27.7 SEC (22.9-36.1); Prothrombin Time 14.6 SEC (12.0-14.7)
[2018-11-18 16:14] LABS: INR-International Normal Ratio 1.1
[2018-11-18 16:21] LABS: ALT (SGPT) 48 U/L (8-55); AST (SGOT) 49 U/L (5-34); Albumin 3.9 g/dL (3.4-4.8); Alkaline Phosphatase 83 U/L (40-150); Anion Gap 17 mmol/L (10-20); BUN (Urea Nitrogen) 16 mg/dL (9.8-20.1); Bilirubin, Total 0.8 mg/dL (0.2-1.2); Calc. Creatinine Clearance 0 mL/min (70-130); Calcium 10.8 mg/dL (7.8-10.44); Carbon Dioxide 26 mmol/L (23-31); Chloride 100 mmol/L (98-107); Estimated GFR-MDRD 64; Globulin 3.4 g/dL (2.4-3.5); Glucose 122 mg/dL (83-110); Potassium 4.9 mmol/L (3.5-5.1); Protein, Total 7.3 g/dL (6.0-8.3); Sodium 138 mmol/L (136-145)
--- NOTE | 2018-11-18 16:26 | RAD ---
Exam: Chest one view HISTORY:Status post intubation. Stroke. Comparison: 11/11/2018 FINDINGS: Cardiac silhouette: Normal Pulmonary vessels: Normal Costophrenic angles: Blunting of left costophrenic angle likely joint effusion. Lines and tubes: Endotracheal tube terminates approximately 1 cm above the rufina. Nasogastric tube e xtends beyond the diaphragm. Distal tip is not seen Sternotomy wires are noted LUNGS: Diffuse interstitial opacities likely due to edema or infiltrate. Pneumothorax: None Osseous abnormalities: None IMPRESSION: 1. Endotracheal tube is above. Repositioning of the endotracheal tube is recommended. 2. Small left-sided pleural effusion. Interstitial opacities may be due to edema or infiltrate. CODE T
[2018-11-18 16:34] LABS: Actual Bicarbonate (HCO3a) 20.1 mEq/L (22-28); Analyzer IN Cardio ER; CO2 Tension 33.6 mmHg (35.0-45.0); Calcium, Ionized 1.15 mmol/L (1.12-1.30); Carboxyhemoglobin (COHb) 0.3 gm% (0.0-3.0); Hemoglobin (Hb) 11.8 g/dL (12.0-16.0); O2 Tension (PaO2) 176.1 mmHg (> 70.0); Potassium - ABG Lab 4.16 mmol/L (3.70-5.30)
[2018-11-18 16:35] LABS: Puncture Site RBRACH
[2018-11-18] MEDS ORDERED: Ondansetron PF 4 MG/2 ML Vial IVP PRN (16:58)
--- NOTE | 2018-11-18 17:01 | RAD ---
RADIOGRAPH CHEST 1 VIEW: Date: 11/18/2018 Time: 4:08 p.m. HISTORY: A 78-year-old female, status post intubation. COMPARISON: 11/11/2018 FINDINGS: There is a new endotracheal tube with the distal tip 3 cm deep into the right mainstem bronchus. The re is a new NG tube in the stomach. The left hemidiaphragm is elevated. There is blunting of the le ft lateral costophrenic angle. No cardiomegaly. Prominent interstitial markings. Healing right rib fractures. This is a supine image, which would make it insensitive to pneumothorax detection. No p ulmonary edema. IMPRESSION: 1. Status post intubation, with endotracheal tube deep in the right mainstem bronchus. 2. Elevated left hemidiaphragm, suggestive of left lower lobe atelectasis. 3. Esophagogastric tube placement. ROHIT [] POS: CHARY
--- NOTE | 2018-11-18 17:59 | CT ---
EXAM: CTA head without and with contrast HISTORY: Stroke. History of subdural bleed. Right-sided weakness. COMPARISON: CT brain 11/18/2018 TECHNIQUE: Multiple contiguous axial images were obtained and a CTA of the head without and with contrast. 3-D sagittal and coronal MIP reformats were performed. FINDINGS: Scattered hypodensities in the subcortical and periventricular white matter are likely secondary to s mall vessel ischemic disease. There is a stable left parietal convexity subdural hematoma measuring 7 mm in thickness. There is no evidence of hydrocephalus. Calcified plaque is seen in the bilateral cavernous internal carotid arteries which is nonfocal. Right intracranial internal carotid artery: Patent without narrowing or occlusion Right anterior cerebral artery: Patent without narrowing or occlusion Right middle cerebral artery: Patent without narrowing or occlusion Left intracranial internal carotid artery: Patent without narrowing or occlusion Left anterior cerebral artery: Patent without narrowing or occlusion Left middle cerebral artery: Patent without narrowing or occlusion No aneurysmal dilatation is seen in the anterior circulation. Right vertebral artery: Patent without narrowing or occlusion Left vertebral artery: Patent without narrowing or occlusion Basilar artery: Patent without narrowing or occlusion The posterior cerebral arteries and cerebellar arteries are patent without narrowing or occlusion. No aneurysmal dilatation is seen in the posterior circulation. IMPRESSION: 1. No significant CTA abnormality of the head 2. Stable left parietal subdural hematoma
[2018-11-18] MEDS ORDERED: Dextrose 5% in Water 1,000 ML IV PRN (18:35)
[2018-11-18] MEDS ORDERED: Dextrose 50% Abboject 50 ML SYRINGE SLOW IVP PRN (18:35)
[2018-11-18] MEDS ORDERED: Lorazepam 2 MG/ML VIAL SLOW IVP PRN (20:01)
[2018-11-18] MEDS ORDERED: Fentanyl BOLUS 250 ML IVPB PRN (20:01)
[2018-11-18] MEDS ORDERED: Propofol BOLUS 1,000 MG/100 ML VIAL IV PRN (20:01)
[2018-11-18] MEDS ORDERED: Morphine 2 MG/ML SYRINGE SLOW IVP PRN (20:01)
[2018-11-18] MEDS ORDERED: DISCONTINUE PREVIOUS NARCOTIC PAIN MEDICATIONS AND BENZODIAZEPINES FS SCH (20:01)
[2018-11-18] MEDS ORDERED: Propofol 1,000 MG/100 ML VIAL IV PRN (20:01)
[2018-11-18 20:12] LABS: CKMB 1.2 ng/mL (0-6.6)
[2018-11-18 20:20] VITALS: BMI 26.6
[2018-11-18] MEDS: Dextrose 5 % And 0.9 % NaCl 1,000 ML IV SCH (22:19)
[2018-11-18] MEDS: Famotidine/PF 20 mg/2ml Vial SLOW IVP SCH (22:24)
[2018-11-18 23:23] LABS: Bilirubin Negative (Negative); Blood, Urine Small (Negative); Clarity CLEAR (Clear); Glucose, Urine (Dipstick) Negative (Negative); Leukocyte Large (Negative); Nitrite Negative (Negative); Protein, Urine (Dipstick) Negative (Neg-Trace)
[2018-11-18 23:25] LABS: Bacteria/HPF 2+ HPF (None Seen); Hyaline Casts/LPF 4-6 HYALINE CAST LPF (0-3 Hyaline); Pathc Cast-AUWi Flag 1.22 (0-2.49); Squamous Epithelial 0-3 HPF (0-3); WBC/HPF Greater Than 50 HPF (0-3)
[2018-11-18 23:29] LABS: Urine Culture Reflex Yes Yes
[2018-11-18] MEDS: levETIRAcetam In NaCl (Iso-Os) 1,000 MG in Premix Bag 1 BAG IVPB SCH (23:33)
[2018-11-18] MEDS: Vancomycin HCl 1.25 GM in Sodium Chloride 0.9% 250 ML 250 ML IVPB SCH (23:34)
[2018-11-18 23:56] LABS: CKMB 1.1 ng/mL (0-6.6)
[2018-11-19] MEDS: Piperacillin/Tazobactam 3.375 GM in Sodium Chloride 0.9% 100 ML IVPB SCH ×5 (00:50→23:17)
--- NOTE | 2018-11-19 00:55 | HP ---
CHIEF COMPLAINT: Change in mental status. HISTORY OF PRESENT ILLNESS: The patient is a 78-year-old female who recently was discharged from the hospital on November 14 after coming in for a fall and had a subdural hematoma. The patient's sister who is at bedside states that prior to her arrival during her last hospital stay, which was November 11, the patient continued to have falls about 3 or 4 falls in 2 weeks. At this time, she became increasingly weak, so the family decided to bring her into the hospital. The patient was found to have a UTI, also was found to have hyponatremia and was found to have a subdural hematoma. She was observed over in the [facility] and then was discharged on 11/14 to [facility], this was on . The patient's sister stated that when she saw her on Sunday, the patient was back to her baseline talking. She does have some weak memory of current events; however is able to remember her historical events. The patient's sister then stated that Sunday when she visited with her sister, she found that her sister seemed very confused, kept repeating her grandson's name and just felt odd in her conversations. However, nothing was done about this. However, today when the patient's other sister went to visit her, she found her half in the bed and have hanging out and was very unresponsive at this time. The nursing staff was alerted in the [facility] and patient was brought into the hospital for further evaluation. PAST MEDICAL HISTORY: She has a history of subdural hematoma. She has a history of UTI. She has a history of hyponatremia, has a history of hypertension, dementia, diabetes, and she has had an aortic valve repair. PAST SURGICAL HISTORY: As of the following, she has had a basal cell carcinoma removed, aortic valve replacement, cardiac catheterization, tonsillectomy, tubal ligation, cholecystectomy, bilateral rotator cuff repair, right ankle surgery, right foot surgery. SOCIAL HISTORY: This is per her documentation, no alcohol use, drug use. She is currently a full code. I did discuss code status with her current sister who stated that her other sister and the patient was supposed to get legal documentation in terms of power of banking attorney; however, that never happened. She lives at home normally with her daughter. However, currently she was recently in the [place]. ALLERGIES: SHE HAS NO KNOWN DRUG ALLERGIES. MEDICATIONS: She is on: 1. Aspirin 81 mg daily. 2. Metformin 500 mg twice daily. 3. Omeprazole 20 mg daily. 4. Lasix 20 mg daily as needed. 5. Clonidine 0.1 p.r.n. REVIEW OF SYSTEMS: Unable to obtain since the patient is currently intubated. PHYSICAL EXAMINATION: VITAL SIGNS: As of the following, her temperature is 92.4, blood pressure is 99/55, pulse of 57, 17 respirations. GENERAL: She is intubated, does not appear in any distress. HEENT : Pupils are sluggish, but reactive to light. CV: S1 and S2 present. No murmurs, rubs, or gallops. LUNGS: Clear to auscultation. No rhonchi or wheezes noted. ABDOMEN: Soft. Bowel sounds are present x2. EXTREMITIES: No edema. Pedal pulses are present x2. NEUROVASCULAR: Unable to perform since the patient is intubated and is on fentanyl. SKIN: No cuts, lesions, or bruises noted. LABORATORY RESULTS: As of the following; WBCs of 9.5, hemoglobin of 11.4, hematocrit of 34.3, platelets of 142. Chemistry: Sodium of 138, potassium 4.9, BUN of 16, creatinine 0.86. Her calcium was 10.8, mild elevated AST and her troponin was negative. The patient did have a CT brain that indicated redemonstration of a subdural bleed along the left occipital parietal convexity. Additional subarachnoid blood along the left and the right tentorium and posterior right falx, loss of nogueira white matter differentiating in the sulci, effacement involving the left occipital, parietal and posterior temporal lobe. The patient also had a CTA angiogram, which indicated no significant abnormalities in the head, stable left parietal subdural hematoma. She did have a chest x-ray that showed possible edema versus infiltrate. ASSESSMENT AND PLAN: 1. The patient is a 78-year-old female who initially came to the hospital with altered mental status. 2. Acute respiratory failure. The patient was intubated. She kept on having seizures. She has been loaded up with Keppra. She is currently on a fentanyl drip. I have consulted Neurology. We will get an EEG for this patient. I will also start her on Keppra 1000 mg b.i.d. I will also add prophylactic antibiotics just to be on the safer side, and since she was in the hospital recently, she did have an E. coli UTI in the past. I will check a urine and also make sure to put her on some Zosyn and vancomycin for tonight and we can wean it off in the morning, if she continues to improve. 3. Acute metabolic encephalopathy most likely secondary to her underlying subdural hematoma, which seems that has redemonstrated bleeding per the CT findings. Per the ER physician, this was discussed with Dr. Miguel, who is a neurosurgeon. No current interventions were indicated. The patient will be admitted into the ICU and the ER doctor has called the programming instructor in regard to this patient. We will continue to monitor neuro checks. 4. Seizure, which is acute. The patient is currently loaded with Keppra. I will continue the Keppra 1000 mg twice a day and also neurology has been consulted. 5. Deep venous thrombosis prophylaxis. We will put patient on some sequential compression devices. 6. I did discuss code status with the with the patient's daughter. She stated that she will ask her sister since the sister was supposed to go with the patient in regard to make a POA and also what the patient wanted. However, this was never initiated due to her current situation. She will talk with her other sister and will get back to me on that. Job ID: [id number]
[2018-11-19 04:46] LABS: #Eosinphils 0.3 thou/uL (0.0-0.7); #Monocytes 1.2 thou/uL (0.11-0.59); #Neutrophils 6.5 thou/uL (1.40-6.50); %Basophils 0.3 % (0.0-1.0); %Eosinophils 2.8 % (0.0-10.0); %Lymphocytes 19.9 % (21.0-51.0); %Monocytes 12.4 % (0.0-10.0); %Neutrophils 64.6 % (42.0-75.0); Hemoglobin 11.1 g/dL (12.0-16.0); Mean Corpuscular Hemoglobin 31.7 pg (27.0-31.0); Mean Corpuscular Volume 93.2 fL (78.0-98.0); Mean Platelet Volume 7.5 fL (7.4-10.4); Platelet Count 108 thou/uL (130-400); RBC Distribution Width 14.5 % (11.5-14.5); Red Blood Cell (RBC) Count 3.51 mill/uL (4.20-5.40)
[2018-11-19 04:55] LABS: Anion Gap 15 mmol/L (10-20); BUN (Urea Nitrogen) 15 mg/dL (9.8-20.1); Calc. Creatinine Clearance 64 mL/min (70-130); Calcium 8.9 mg/dL (7.8-10.44); Carbon Dioxide 20 mmol/L (23-31); Chloride 101 mmol/L (98-107); Estimated GFR-MDRD 74; Glucose 120 mg/dL (83-110); Potassium 3.6 mmol/L (3.5-5.1); Sodium 132 mmol/L (136-145)
[2018-11-19] MEDS: levETIRAcetam In NaCl (Iso-Os) 1,000 MG in Premix Bag 1 BAG IVPB SCH ×2 (10:07→20:40)
[2018-11-19] MEDS: Famotidine/PF 20 mg/2ml Vial SLOW IVP SCH ×2 (10:07→20:41)
[2018-11-19] MEDS ORDERED: Lorazepam 2 MG/ML VIAL SLOW IVP PRN (10:16)
--- NOTE | 2018-11-19 13:48 | PDOC.PN ---
- Subjective Encounter Start Date: 11/19/18 Encounter Start Time: 10:15 Subjective: pt intubated - Objective Resuscitation Status - Order Detail: 11/18/18 16:58 Resuscitation Status Routine Resuscitation Status: FULL: Full Resuscitation Vital Signs & Weight: Vital Signs (12 hours) Temp Pulse Resp BP Pulse Ox 11/19/18 13:25 88 17 94 L 11/19/18 13:00 92 11/19/18 10:30 86 11/19/18 08:00 99.8 F H 12 11/19/18 07:04 85 11/19/18 06:00 12 11/19/18 04:00 99.5 F 12 11/19/18 02:07 73 108/50 L 11/19/18 02:00 13 Weight Admit Weight 145 lb 11.609 oz Weight 145 lb 11.609 oz Most Recent Monitor Data Heart Rate from ECG 79 NIBP 141/69 NIBP BP-Mean 93 Respiration from ECG 15 SpO2 97 I&O: 11/18/18 11/19/18 11/20/18 06:59 06:59 06:59 Intake Total 1008 Output Total 390 65 Balance 618 -65 Result Diagrams: 11/19/18 04:21 11/19/18 04:21 Additional Labs: Accuchecks 11/19/18 11/19/18 11/19/18 12:04 05:51 00:33 POC Glucose 145 H 136 H 108 11/18/18 15:07 POC Glucose 149 H Phys Exam - Physical Examination Neck: no nodes, no JVD, supple, full ROM Respiratory: no wheezing, no rales, no rhonchi, wheezing present, clear to auscultation bilateral Cardiovascular: RRR, no significant murmur, no rub, gallop, irregular Gastrointestinal: soft, non-tender, no distention, positive bowel sounds Dx/Plan (1) Acute respiratory failure Code(s): J96.00 - ACUTE RESPIRATORY FAILURE, UNSP W HYPOXIA OR HYPERCAPNIA Status: Acute (2) Seizure Code(s): R56.9 - UNSPECIFIED CONVULSIONS Status: Acute (3) Subdural hematoma Code(s): S06.5X9A - TRAUM SUBDR HEM W LOC OF UNSP DURATION, INIT Status: Acute - Plan pt's sister states that pt's trileptal was discontinued -: last visit. pt's sodium level was stable on admission -: will check serum osmo, urine na and urine osm -: will conitnue keppra and abx * . Review of Systems - Review of Systems Other: unable to obtain - Medications/Allergies Allergies/Adverse Reactions: Allergies Allergy/AdvReac Type Severity Reaction Status Date / Time No Known Drug Allergies Allergy Verified 11/18/18 20:34 Medications: Current Medications Acetaminophen (Tylenol) 650 mg MO Q4H PRN PRN Reason: Headache/Fever or Pain Atorvastatin Calcium (Lipitor) 10 mg PO HS [facility] Carvedilol (Coreg) 6.25 mg PO BID-WM [facility] Dextrose/Water (Dextrose 50%) 25 gm SLOW IVP PRN PRN PRN Reason: Hypoglycemia Famotidine (Pepcid) 20 mg SLOW IVP Q12HR [facility] Last Admin: 11/19/18 10:07 Dose: 20 mg Gabapentin (Neurontin) 300 mg PO BID [facility] Glucagon (Glucagon) 1 mg IM PRN PRN PRN Reason: Hypoglycemia Levetiracetam 1,000 mg/ Device 100 mls @ 200 mls/hr IVPB BID [facility] Last Admin: 11/19/18 10:07 Dose: 100 mls Dextrose/Sodium Chloride (D5 0.9% Ns) 1,000 mls @ 50 mls/hr IV .Q20H [facility] Last Admin: 11/18/18 22:19 Dose: Not Given Piperacillin Sod/Tazobactam (Sod 3.375 gm/ Sodium Chloride) 100 mls @ 200 mls/ hr IVPB Q6HR [facility] Last Admin: 11/19/18 12:18 Dose: 100 mls Vancomycin HCl 1.25 gm/ Sodium (Chloride) 250 mls @ 166.667 mls/hr IVPB Q24HR [facility] Last Admin: 11/18/18 23:34 Dose: 250 mls Dextrose/Water (D5w) 1,000 mls @ 0 mls/hr IV .Q0M PRN PRN Reason: Hypoglycemia Insulin Human Lispro (Humalog) 0 units SC .MILD SLIDING SCALE PRN PRN Reason: Mild Correctional Scale Lorazepam (Ativan) 2 mg SLOW IVP Q15MIN PRN PRN Reason: Seizures Memantine (Namenda) 10 mg PO BID [facility] Miscellaneous Medication (Pharmacy To Dose) 1 each IVPB PRN PRN PRN Reason: Pharmacy to dose Discontinue Previous Narcotic Pain Medications And Benzodiazepines 1 each FS .ONE IDALMIS Stop: 12/18/18 20:01 Ondansetron HCl (Zofran) 4 mg IVP Q6H PRN PRN Reason: Nausea/Vomiting Pneumococcal 13-Valent Conj Vacc (Prevnar) 0.5 ml IM .ONCE ONE Stop: 11/19/18 21:01 Sodium Chloride (Flush - Normal Saline) 10 ml IVF Q12HR IDALMIS Last Admin: 11/19/18 10:07 Dose: 10 ml Sodium Chloride (Flush - Normal Saline) 10 ml IVF PRN PRN PRN Reason: Saline Flush
[2018-11-19] MEDS: Acetaminophen 650 MG Suppository PR PRN (15:08)
[2018-11-19] MEDS: Dextrose 5 % And 0.9 % NaCl 1,000 ML IV SCH (15:13)
--- NOTE | 2018-11-19 15:37 | EEG ---
Referring Physician: Brittanie MINER EEG # [id number] TEST TYPE: ROUTINE PORTABLE INPATIENT REPORT: AN EEG USING THE INTERNATIONAL TEN-TWENTY SYSTEM OF ELECTRODE PLACEMENT WAS PERFORMED. The waking background is a 5-6 hertz Theta frequency. Some intermittent Delta activity was seen as well. Photic stimulation was unremarkable. No epileptiform features were present. IMPRESSION: THIS IS AN ABNORMAL STUDY FOR THE FINDINGS OF DIFFUSE SLOWING CONSISTENT WITH A DIFFUSE ENCEPHALOPATHIC PROCESS. Program Management Intern: ASAF Pipe Setter: [email or web address] MARI
--- NOTE | 2018-11-19 16:00 | CON ---
DATE OF CONSULTATION: 11/19/2018 SERVICE: Pulmonary Medicine. REASON FOR CONSULTATION: ICU patient. HISTORY OF PRESENT ILLNESS: The patient is a 78-year-old white female with past medical history significant for dementia and trigeminal neuralgia. She has also had multiple bouts with hyponatremia. Whenever the sodium level started to go down , she has increasing mentation issues. Because of the low sodium, her Trileptal was interrupted here recently, that was about 1 week ago. She started having increasing confusion, was subsequently brought back to the emergency department. She was discovered to be having hyponatremia. That being said, while in the ED, she had witnessed seizure. Multiple doses of Ativan were given. In order to protect her airway, she was subsequently intubated. She cannot provide me any additional elements of the history at this point. There is no report of fevers or stressful events overnight. She currently has 0/4 of the systemic inflammatory response syndrome criteria. PAST MEDICAL HISTORY: 1. Chronic subdural hematoma. 2. Dementia. 3. Hypertension. 4. Type 2 diabetes mellitus. 5. Hyponatremia, recurrent. PAST SURGICAL HISTORY: 1. Excision of basal cell carcinoma. 2. Aortic valve replacement. 3. Tonsillectomy. 4. Tubal ligation. 5. Cholecystectomy. 6. Bilateral rotator cuff repair. 7. Right ankle surgery. 8. Right foot surgery. ALLERGIES: NO KNOWN DRUG ALLERGIES. MEDICATIONS: List of her inpatient medications were reviewed. Multiple updates were made at this time. SOCIAL HISTORY: Negative for alcohol, tobacco, or illicit drug use. She is a full code. Apparently, she currently lives at the [place]. There is no exposure to chemicals, dust, asbestos, or tuberculosis. FAMILY HISTORY: Noncontributory. REVIEW OF SYSTEMS: This cannot be obtained as the patient is currently intubated and sedated. PHYSICAL EXAMINATION: VITAL SIGNS: Afebrile currently with a T-max overnight of 100.6, pulse 85, blood pressure 113/52, respirations 12, saturation 99% on 31% FiO2 and a PEEP of 5. GENERAL: The patient is intubated and sedated. With some gentle stimulation, she will spontaneously wake up but after about 5 seconds, she will drift back to sleep. She is moving all 4 extremities and attends when she opens her eyes. She is following some simple commands. HEENT: Normocephalic and atraumatic. Sclerae white. Conjunctivae pink. Oral mucosa is moist without lesions. LUNGS: Very good air entry. There is some coarse breath sounds on the right. No prolonged expiratory phase or wheezing is appreciated. HEART: Normal rate. Regular. ABDOMEN: Soft, nontender, nondistended. Bowel sounds are positive. MUSCULOSKELETAL: No cyanosis or clubbing. No pitting in the bilateral lower extremities. NEUROLOGIC: Grossly nonfocal. LABORATORY DATA: WBC 10.0, hemoglobin 11.1, and platelets 108,000. INR 1.1. PH 7.40, pCO2 of 34, PO2 of 176, on 50% FiO2 at that time. Sodium 132 and gently downtrending, creatinine 0.76. Troponin is gently up trending to 0.072, calcium 10.8. Urinalysis is positive for pyuria, and large leukocyte esterase. Nitrites are currently negative, bacteria are 2+. DIAGNOSTIC DATA: 1. Chest x-ray demonstrates small left-sided effusion. Interstitial edema is likely present. Endotracheal tube is less than 1 cm above the level of the rufina. The carinal angle is slightly widened. 2. CT of the ione of [place] demonstrates no acute vascular abnormality. 3. CT of the head demonstrates subdural hematoma in the left occipital-parietal convexity. There is additional subarachnoid blood along the left and right tentorium and posterior falx. Additionally, there is some sulcal effacement involving the left occipital, parietal, and posterior temporal lobes. ASSESSMENT: 1. Cerebrovascular accident, possible. 2. Subdural hematoma, chronic and roughly stable. 3. Seizure, new onset. 4. Respiratory failure secondary to inability to protect airway. 5. Urinary tract infection. 6. Hyponatremia. DISCUSSION AND PLAN: The patient will be given a spontaneous breathing trial. If she meets criteria, extubation will be considered. I agree with antiepileptic drugs, and empiric antibiotics directed at urinary tract infections. Once the tube comes out, we will focus on mobilization efforts and involve speech pathology. MRI of the brain will be indicated if the right sided neurologic dysfunction persists. Critical care time: 30 minutes. Job ID: [id number] MTDD
[2018-11-19] MEDS: Carvedilol 6.25 MG TAB PO SCH (18:13)
[2018-11-19] MEDS: Gabapentin 300 MG CAP PO SCH (20:41)
[2018-11-19] MEDS: Vancomycin HCl 1.25 GM in Sodium Chloride 0.9% 250 ML 250 ML IVPB SCH (20:41)
[2018-11-19] MEDS ORDERED: Atorvastatin Calcium 10 MG TAB PO SCH (21:00)
[2018-11-19] MEDS ORDERED: Prevnar 13-Val Conj/PF 0.5 ML SYRINGE IM ONE (21:00)
--- NOTE | 2018-11-20 00:05 | CON ---
DATE OF CONSULTATION: 11/19/2018 REFERRING PHYSICIAN: Hospitalist Service. IMPRESSION: 1. New onset seizures secondary to subdural hematoma. 2. Recent history of trigeminal neuralgia. 3. Hyponatremia secondary to Trileptal. PLAN: 1. Continue Keppra 1000 mg twice daily. 2. The patient can be discharged home at your discretion. HISTORY OF PRESENT ILLNESS: Ms. Yoon is a 78-year-old woman who I saw recently for trigeminal neuralgia back in August. She was started on Trileptal. She had it discontinued after her subdural hematoma was discovered and she was found to be hyponatremic. She had 2 witnessed generalized seizures yesterday. She was started on Keppra. She was intubated for a period of time. She is now with complaint of a left-sided headache, but otherwise no further seizures. On exam, she is awake, but is not conversant. She nods in response to questions. There was no facial asymmetry. No abnormal movements were seen. Gait was not tested. I would continue her current regimen that she was started. I would be happy to follow up with her as an outpatient. Job ID: [id number]
[2018-11-20] MEDS: Piperacillin/Tazobactam 3.375 GM in Sodium Chloride 0.9% 100 ML IVPB SCH ×3 (06:01→19:46)
[2018-11-20 06:48] LABS: #Eosinphils 0.3 thou/uL (0.0-0.7); #Monocytes 0.5 thou/uL (0.11-0.59); #Neutrophils 3.9 thou/uL (1.40-6.50); %Basophils 0.3 % (0.0-1.0); %Eosinophils 5.7 % (0.0-10.0); %Lymphocytes 17.8 % (21.0-51.0); %Monocytes 8.7 % (0.0-10.0); %Neutrophils 67.5 % (42.0-75.0); Hemoglobin 9.7 g/dL (12.0-16.0); Mean Corpuscular HGB CONC 32.7 g/dL (32.0-36.0); Mean Corpuscular Hemoglobin 31.2 pg (27.0-31.0); Mean Corpuscular Volume 95.4 fL (78.0-98.0); Mean Platelet Volume 7.2 fL (7.4-10.4); Platelet Count 101 thou/uL (130-400); RBC Distribution Width 14.1 % (11.5-14.5); Red Blood Cell (RBC) Count 3.09 mill/uL (4.20-5.40); White Blood Cell (WBC) Count 5.7 thou/uL (4.8-10.8)
[2018-11-20 07:06] LABS: Anion Gap 12 mmol/L (10-20); BUN (Urea Nitrogen) 8 mg/dL (9.8-20.1); Calc. Creatinine Clearance 75 mL/min (70-130); Calcium 8.4 mg/dL (7.8-10.44); Carbon Dioxide 22 mmol/L (23-31); Chloride 106 mmol/L (98-107); Estimated GFR-MDRD 90; Glucose 123 mg/dL (83-110); Magnesium 1.1 mg/dL (1.6-2.6); Phosphorus 3.2 mg/dL (2.3-4.7); Sodium 137 mmol/L (136-145)
--- NOTE | 2018-11-20 07:33 | PRG ---
DATE OF SERVICE: 11/19/2018 Ms. Yoon is a 78-year-old female who presented with altered mental status. [facility] her [facility] mental status. Of note, she had been admitted toward the latter part of October secondary to fall and what was a nonoperative subdural hematoma at that time. Upon presentation on this occasion, she had a repeat CT examination performed which continues to show a left cerebral convexity, mixed density subdural hematoma with no midline shift, and minimal mass effect. I have reviewed the note as dictated by Clyde Lyon as well as his assessment and agree with his findings. The subdural hematoma remains small with minimal mass effect. I do not believe it warrants neurosurgical intervention at this time. She will need to be further evaluated for other potential causes of altered mental status as well including seizure disorder and encephalopathy. Job ID: [id number]
[2018-11-20] MEDS: Famotidine/PF 20 mg/2ml Vial SLOW IVP SCH ×2 (07:43→21:52)
[2018-11-20] MEDS: Carvedilol 6.25 MG TAB PO SCH ×2 (07:43→18:47)
[2018-11-20] MEDS: Gabapentin 300 MG CAP PO SCH ×2 (07:43→21:52)
[2018-11-20] MEDS: levETIRAcetam In NaCl (Iso-Os) 1,000 MG in Premix Bag 1 BAG IVPB SCH (08:40)
--- NOTE | 2018-11-20 09:06 | CON ---
DATE OF CONSULTATION: 11/18/2018 TIME OF CONSULTATION: At 1530 hours. Ms. Yoon is a 78-year-old woman, who is actually known to us for previous hospital admission for subdural hematoma, status post fall. She returns today with progressive episodes of witnessed seizure events and altered mental status. I am seeing her in the emergency department as she is being transferred to CT scan, where she demonstrates right upper extremity weakness and clumsiness, although she can move bilateral upper extremities nearly equivalently. She just has reduced oncology rep specialist strength in the right hand. She has some slurring and is less responsive to our queries as she was a week ago. After standard forms were deformities were reviewed in the emergency department while she is still present, CT of the brain re-demonstrates stable subdural hematoma. The left occipital convexity with only minimal compression of the underlying brain parenchyma. This looks subacute in nature with this as well as with the chronicity of her bleed. CT angiogram of the brain reveals no occlusive or thromboembolic disease that could be causative of perhaps CVA. From neurosurgeries perspective, this is still small subdural with minimal compression and do not feel that it is necessary for drainage or evacuation. The patient is being loaded on Keppra here in the department, which is necessary given her seizure activity. It is conceivable that the blood products as they are degrading could be causing irritation of the underlying brain tissue, particularly given that the patient does not have a history of seizure disorder, but we will need to continue to follow along and track progress of this resolving hemorrhage. Again, no surgical intervention is planned at this time and we will follow her bleed from our radiographic standpoint. Job ID: [id number]
--- NOTE | 2018-11-20 09:33 | PRG ---
DATE OF SERVICE: 11/20/2018 I met with Ms. Yoon in her ICU room this morning. She is awake and interactive. She tells me her name, her date of , and the current year. She moves all 4 extremities fairly well. Her speech is clear to me. She does complain of some pain in the right forearm. This may need to be investigated further. It appears to me that she is back to her neurologic baseline. The plan from a neurosurgical perspective is still nonoperative management. Job ID: [id number]
[2018-11-20] MEDS: Dextrose 5 % And 0.9 % NaCl 1,000 ML IV SCH (11:12)
[2018-11-20] MEDS ORDERED: Labetalol HCl 100 MG/20 ML VIAL SLOW IVP PRN (12:44)
[2018-11-20] MEDS ORDERED: Magnesium Sulfate 4 GM in Sodium Chloride 0.9% 250 ML 250 ML IVPB SCH (13:00)
--- NOTE | 2018-11-20 13:05 | PRG ---
DATE OF SERVICE: 11/20/2018 SERVICE: Pulmonary Medicine. INTERVAL HISTORY: The patient is doing fine from respiratory standpoint. She has tolerated extubation just fine yesterday. She has no complaints. She is moving all 4 extremities with much more strength, particularly on the right side. It is my understanding that she is back to baseline. Neurosurgery and Neurology are not suggesting any additional studies at this point. She has not had any seizure activity overnight. There has been no interval change to her condition, however. PHYSICAL EXAMINATION: VITAL SIGNS: Afebrile currently. T-max 100.9 yesterday. Pulse 87, blood pressure 177/97, respirations 18, and saturation 94% on 2 L nasal cannula. GENERAL: The patient is awake and alert, in no apparent distress. LUNGS: Decent air entry. Minimal dependent crackles are noted. There is no prolonged expiratory phase or wheezing present. HEART: Normal rate, regular. ABDOMEN: Soft, nontender, and nondistended. Bowel sounds are positive. MUSCULOSKELETAL: No cyanosis or clubbing. There is no pitting in bilateral lower extremities. LABORATORY DATA: WBC 5.7, hemoglobin 9.7, and platelets 101,000 and roughly stable. INR 1.1. Basic metabolic profile is unremarkable except for a potassium of 3.0. Magnesium 1.1, phosphorus falls within the normal limits. Gram-negative grover is growing in the urine. Blood cultures remain negative x2. ASSESSMENT: 1. Subdural hematoma, chronic and stable. 2. Seizure, new onset with temporary paralysis in the right arm and leg. 3. Hyponatremia, resolved. 4. Urinary tract infection. 5. Sepsis, resolving. DISCUSSION AND PLAN: The patient did fine with extubation yesterday. Her magnesium and potassium were low. These will be replaced today. We will tighten up her blood pressure parameters. At this point, she is stable for transition to the Stroke Unit. I will involve the Stroke Team with Physical Therapy, Occupational Therapy, and Speech Pathology. If she can swallow, we will feed her. Vancomycin will be dropped. We will continue the empiric Zosyn for the time being. We will follow some laboratories until tomorrow. She can be transitioned to the Stroke Unit. When she arrives on the floor, she will have no further requirements for inpatient Pulmonary/Critical Care opinion and I will sign off. Please call with additional questions or concerns. Job ID: [id number] [facility]
[2018-11-20] MEDS: Potassium Chloride 20 MEQ TAB PO SCH ×2 (14:21→18:42)
--- NOTE | 2018-11-20 17:54 | PDOC.PN ---
- Subjective Encounter Start Date: 11/20/18 Encounter Start Time: 11:00 Subjective: pt extubated - Objective Resuscitation Status - Order Detail: 11/18/18 16:58 Resuscitation Status Routine Resuscitation Status: FULL: Full Resuscitation Vital Signs & Weight: Vital Signs (12 hours) Pulse Pulse BP BP BP Pulse Ox Pulse Ox 11/20/18 10:20 80 101 H 171/145 H 182/107 H 96 11/20/18 09:01 79 84 185/84 H 170/100 H 97 11/20/18 07:43 141/71 H 11/20/18 07:26 96 Pulse Ox 11/20/18 10:20 89 L 11/20/18 09:01 96 11/20/18 07:43 11/20/18 07:26 Weight Admit Weight 145 lb 11.609 oz Weight 144 lb 9.972 oz Most Recent Monitor Data Heart Rate from ECG 94 NIBP 172/84 NIBP BP-Mean 113 Respiration from ECG 23 SpO2 93 I&O: 11/19/18 11/20/18 11/21/18 06:59 06:59 06:59 Intake Total 1008 1898 4784 Output Total 390 895 453 Balance 618 1003 4331 Result Diagrams: 11/20/18 06:37 11/20/18 06:37 Additional Labs: Accuchecks 11/20/18 11/20/18 11/19/18 11:36 06:08 23:30 POC Glucose 141 H 119 H 134 H 11/19/18 18:42 POC Glucose 139 H Phys Exam - Physical Examination Neck: no nodes, no JVD, supple, full ROM Respiratory: no wheezing, no rales, no rhonchi, wheezing present, clear to auscultation bilateral Cardiovascular: RRR, no significant murmur, no rub, gallop, irregular Gastrointestinal: soft, non-tender, no distention, positive bowel sounds Dx/Plan (1) Acute respiratory failure Code(s): J96.00 - ACUTE RESPIRATORY FAILURE, UNSP W HYPOXIA OR HYPERCAPNIA Status: Acute (2) Seizure Code(s): R56.9 - UNSPECIFIED CONVULSIONS Status: Acute (3) Subdural hematoma Code(s): S06.5X9A - TRAUM SUBDR HEM W LOC OF UNSP DURATION, INIT Status: Acute - Plan will increase her coreg for her bp. will restart her home meds -: will continue current abx -: pt on keppra iv will change to oral * . Review of Systems - Review of Systems Other: pt agitated - Medications/Allergies Allergies/Adverse Reactions: Allergies Allergy/AdvReac Type Severity Reaction Status Date / Time No Known Drug Allergies Allergy Verified 11/18/18 20:34 Medications: Current Medications Acetaminophen (Tylenol) 650 mg MT Q4H PRN PRN Reason: Headache/Fever or Pain Last Admin: 11/19/18 15:08 Dose: 650 mg Atorvastatin Calcium (Lipitor) 10 mg PO HS [facility] Last Admin: 11/19/18 20:41 Dose: 10 mg Atorvastatin Calcium (Lipitor) 20 mg PO HS [facility] Carvedilol (Coreg) 25 mg PO BID[facility] Clonidine (Catapres) 0.1 mg PO PRN PRN PRN Reason: Hypertension Dextrose/Water (Dextrose 50%) 25 gm SLOW IVP PRN PRN PRN Reason: Hypoglycemia Famotidine (Pepcid) 20 mg SLOW IVP Q12HR [facility] Last Admin: 11/20/18 07:43 Dose: 20 mg Ferrous Sulfate (Feosol) 325 mg PO QAM [facility] Gabapentin (Neurontin) 300 mg PO BID [facility] Last Admin: 11/20/18 07:43 Dose: 300 mg Gabapentin (Neurontin) 300 mg PO BID [facility] Glucagon (Glucagon) 1 mg IM PRN PRN PRN Reason: Hypoglycemia Hydralazine HCl (Apresoline) 20 mg SLOW IVP Q15MIN PRN PRN Reason: SBP GREATER THAN 160 Dextrose/Sodium Chloride (D5 0.9% Ns) 1,000 mls @ 50 mls/hr IV .Q20H [facility] Last Admin: 11/20/18 11:12 Dose: 1,000 mls Piperacillin Sod/Tazobactam (Sod 3.375 gm/ Sodium Chloride) 100 mls @ 200 mls/ hr IVPB Q6HR [facility] Last Admin: 11/20/18 11:13 Dose: 100 mls Dextrose/Water (D5w) 1,000 mls @ 0 mls/hr IV .Q0M PRN PRN Reason: Hypoglycemia Insulin Human Lispro (Humalog) 0 units SC .MILD SLIDING SCALE PRN PRN Reason: Mild Correctional Scale Labetalol HCl (Normodyne) 20 mg SLOW IVP Q15MIN PRN PRN Reason: SBP GREATER THAN 160 Levetiracetam (Keppra) 1,000 mg PO BID [facility] Lorazepam (Ativan) 2 mg SLOW IVP Q15MIN PRN PRN Reason: Seizures Memantine (Namenda) 10 mg PO BID [facility] Last Admin: 11/20/18 07:43 Dose: 10 mg Miscellaneous Medication (Pharmacy To Dose) 1 each IVPB PRN PRN PRN Reason: Pharmacy to dose Discontinue Previous Narcotic Pain Medications And Benzodiazepines 1 each FS .ONE [facility] Stop: 12/18/18 20:01 Ondansetron HCl (Zofran) 4 mg IVP Q6H PRN PRN Reason: Nausea/Vomiting Raloxifene HCl (Evista) 60 mg PO DAILY [facility] Sodium Chloride (Flush - Normal Saline) 10 ml IVF Q12HR [facility] Last Admin: 11/20/18 07:46 Dose: 10 ml Sodium Chloride (Flush - Normal Saline) 10 ml IVF PRN PRN PRN Reason: Saline Flush Trospium (Trospium) 20 mg PO BID [facility]
[2018-11-20] MEDS: hydrALAZINE 20 MG/ML VIAL SLOW IVP PRN (19:26)
[2018-11-20] MEDS ORDERED: levETIRAcetam 500 MG TAB PO SCH (21:00)
[2018-11-20] MEDS: levETIRAcetam 500 mg/5 ml Oral Solution PO SCH (21:47)
[2018-11-20] MEDS: Trospium 20 MG TAB PO SCH (21:51)
[2018-11-20] MEDS: Atorvastatin Calcium 20 MG TAB PO SCH (21:52)
[2018-11-21] MEDS: Piperacillin/Tazobactam 3.375 GM in Sodium Chloride 0.9% 100 ML IVPB SCH ×2 (01:21→08:29)
[2018-11-21] MEDS: Dextrose 5 % And 0.9 % NaCl 1,000 ML IV SCH (01:21)
[2018-11-21 06:26] LABS: Hemoglobin 9.9 g/dL (12.0-16.0)
[2018-11-21 06:52] LABS: Anion Gap 12 mmol/L (10-20); BUN (Urea Nitrogen) 6 mg/dL (9.8-20.1); Calc. Creatinine Clearance 70 mL/min (70-130); Calcium 8.2 mg/dL (7.8-10.44); Carbon Dioxide 19 mmol/L (23-31); Chloride 109 mmol/L (98-107); Estimated GFR-MDRD 82; Glucose 135 mg/dL (83-110); Magnesium 2.3 mg/dL (1.6-2.6); Potassium 3.8 mmol/L (3.5-5.1); Sodium 136 mmol/L (136-145)
[2018-11-21] MEDS ORDERED: Carvedilol 6.25 MG TAB PO SCH (08:00)
[2018-11-21] MEDS ORDERED: Non-Formulary Item 1 EACH (Omeprazole [Omeprazole] 20 MG) PO SCH (09:00)
[2018-11-21] MEDS ORDERED: Carvedilol 25 MG TAB PO SCH (09:00)
[2018-11-21] MEDS ORDERED: CARVEDILOL PHOSPHATE 40 MG PO SCH (09:00)
[2018-11-21] MEDS: cloNIDine 0.1 MG TAB PO PRN (09:35)
[2018-11-21] MEDS: Trospium 20 MG TAB PO SCH ×2 (09:36→22:18)
[2018-11-21] MEDS: Gabapentin 300 MG CAP PO SCH ×2 (09:36→22:18)
[2018-11-21] MEDS: Famotidine/PF 20 mg/2ml Vial SLOW IVP SCH (09:37)
[2018-11-21] MEDS: levETIRAcetam 500 mg/5 ml Oral Solution PO SCH ×2 (10:36→22:18)
[2018-11-21] MEDS: cefTRIAXone\\ROCEPHIN 1 GM in Sodium Chloride 0.9% 100 ML IVPB SCH (10:38)
[2018-11-21] MEDS: HumaLOG 300 UNITS/3 ML VIAL SC PRN (12:35)
[2018-11-21] MEDS: Ferrous Sulfate 325 MG TAB PO SCH (12:36)
[2018-11-21] MEDS: hydrALAZINE 20 MG/ML VIAL SLOW IVP PRN (12:39)
--- NOTE | 2018-11-21 16:05 | PDOC.PN ---
- Subjective Encounter Start Date: 11/21/18 Encounter Start Time: 12:30 Subjective: pt up in bed appears confused - Objective Resuscitation Status - Order Detail: 11/18/18 16:58 Resuscitation Status Routine Resuscitation Status: FULL: Full Resuscitation Vital Signs & Weight: Vital Signs (12 hours) Temp Pulse Pulse Pulse Resp BP BP 11/21/18 16:00 99 F 90 20 11/21/18 12:39 87 189/80 H 11/21/18 11:51 99.1 F 87 20 11/21/18 09:35 202/48 H 11/21/18 08:57 210/95 H 11/21/18 08:31 83 74 215/88 H 11/21/18 08:00 98.5 F 69 16 BP BP Pulse Ox 11/21/18 16:00 157/73 H 96 11/21/18 12:39 11/21/18 11:51 96 11/21/18 09:35 11/21/18 08:57 11/21/18 08:31 159/66 H 11/21/18 08:00 202/49 H 94 L Weight Admit Weight 145 lb 11.609 oz Weight 144 lb 9.972 oz Most Recent Monitor Data Heart Rate from ECG 94 NIBP 172/84 NIBP BP-Mean 113 Respiration from ECG 23 SpO2 93 I&O: 11/20/18 11/21/18 11/22/18 06:59 06:59 06:59 Intake Total 2698 4784 Output Total 1445 453 Balance 1253 4331 Result Diagrams: 11/21/18 06:14 11/21/18 06:14 Additional Labs: Accuchecks 11/21/18 11/21/18 11/21/18 10:37 05:52 00:23 POC Glucose 193 H 131 H 174 H 11/20/18 11/20/18 19:42 18:26 POC Glucose 138 H 128 H Phys Exam - Physical Examination Respiratory: no wheezing, no rales, no rhonchi, wheezing present, clear to auscultation bilateral Cardiovascular: RRR, no significant murmur, no rub, gallop, irregular Gastrointestinal: soft, non-tender, no distention, positive bowel sounds Musculoskeletal: no edema, pulses present, edema present Dx/Plan (1) Acute respiratory failure Code(s): J96.00 - ACUTE RESPIRATORY FAILURE, UNSP W HYPOXIA OR HYPERCAPNIA Status: Acute (2) Seizure Code(s): R56.9 - UNSPECIFIED CONVULSIONS Status: Acute (3) Subdural hematoma Code(s): S06.5X9A - TRAUM SUBDR HEM W LOC OF UNSP DURATION, INIT Status: Acute - Plan will continue abx for uti -: will add hydralizine for elevated bp -: will continue keppra * . Review of Systems - Review of Systems Other: unable to obtain - Medications/Allergies Allergies/Adverse Reactions: Allergies Allergy/AdvReac Type Severity Reaction Status Date / Time No Known Drug Allergies Allergy Verified 11/18/18 20:34 Medications: Current Medications Acetaminophen (Tylenol) 650 mg NV Q4H PRN PRN Reason: Headache/Fever or Pain Last Admin: 11/19/18 15:08 Dose: 650 mg Atorvastatin Calcium (Lipitor) 20 mg PO HS [facility] Last Admin: 11/20/18 21:52 Dose: 20 mg Carvedilol (Coreg) 25 mg PO BID-[facility] Clonidine (Catapres) 0.1 mg PO PRN PRN PRN Reason: Hypertension Last Admin: 11/21/18 09:35 Dose: 0.1 mg Dextrose/Water (Dextrose 50%) 25 gm SLOW IVP PRN PRN PRN Reason: Hypoglycemia Famotidine (Pepcid) 20 mg PO BID [facility] Ferrous Sulfate (Feosol) 325 mg PO QAM [facility] Last Admin: 11/21/18 12:36 Dose: 325 mg Gabapentin (Neurontin) 300 mg PO BID [facility] Last Admin: 11/21/18 09:36 Dose: 300 mg Glucagon (Glucagon) 1 mg IM PRN PRN PRN Reason: Hypoglycemia Hydralazine HCl (Apresoline) 20 mg SLOW IVP Q15MIN PRN PRN Reason: SBP GREATER THAN 160 Last Admin: 11/21/18 12:39 Dose: 20 mg Dextrose/Sodium Chloride (D5 0.9% Ns) 1,000 mls @ 50 mls/hr IV .Q20H [facility] Last Admin: 11/21/18 01:21 Dose: 1,000 mls Dextrose/Water (D5w) 1,000 mls @ 0 mls/hr IV .Q0M PRN PRN Reason: Hypoglycemia Ceftriaxone Sodium 1 gm/ (Sodium Chloride) 100 mls @ 200 mls/hr IVPB Q24HR [facility] Last Admin: 11/21/18 10:38 Dose: 100 mls Insulin Human Lispro (Humalog) 0 units SC .MILD SLIDING SCALE PRN PRN Reason: Mild Correctional Scale Last Admin: 11/21/18 12:35 Dose: 2 unit Labetalol HCl (Normodyne) 20 mg SLOW IVP Q15MIN PRN PRN Reason: SBP GREATER THAN 160 Levetiracetam (Keppra Oral Solution) 1,000 mg PO BID [facility] Last Admin: 11/21/18 10:36 Dose: 1,000 mg Lorazepam (Ativan) 2 mg SLOW IVP Q15MIN PRN PRN Reason: Seizures Memantine (Namenda) 10 mg PO BID [facility] Last Admin: 11/21/18 09:36 Dose: Not Given Miscellaneous Medication (Pharmacy To Dose) 1 each IVPB PRN PRN PRN Reason: Pharmacy to dose Discontinue Previous Narcotic Pain Medications And Benzodiazepines 1 each FS .ONE [facility] Stop: 12/18/18 20:01 Ondansetron HCl (Zofran) 4 mg IVP Q6H PRN PRN Reason: Nausea/Vomiting Pantoprazole Sodium (Protonix) 40 mg PO DAILY [facility] Last Admin: 11/21/18 09:36 Dose: 40 mg Raloxifene HCl (Evista) 60 mg PO DAILY [facility] Last Admin: 11/21/18 09:36 Dose: 60 mg Sodium Chloride (Flush - Normal Saline) 10 ml IVF Q12HR [facility] Last Admin: 11/21/18 09:37 Dose: 10 ml Sodium Chloride (Flush - Normal Saline) 10 ml IVF PRN PRN PRN Reason: Saline Flush Trospium (Trospium) 20 mg PO BID [facility] Last Admin: 11/21/18 09:36 Dose: 20 mg
[2018-11-21] MEDS ORDERED: hydrALAZINE 25 MG TAB PO SCH (16:15)
[2018-11-21] MEDS: Carvedilol 25 MG TAB PO SCH (17:14)
[2018-11-21] MEDS: Acetaminophen 650 MG Suppository PR PRN (22:18)
[2018-11-21] MEDS: Atorvastatin Calcium 20 MG TAB PO SCH (22:18)
[2018-11-21] MEDS: Famotidine 20 MG TAB PO SCH (22:19)
[2018-11-21] MEDS: hydrALAZINE 25 MG TAB PO SCH (22:20)
[2018-11-22] MEDS: Carvedilol 25 MG TAB PO SCH ×2 (09:11→18:18)
[2018-11-22] MEDS: Famotidine 20 MG TAB PO SCH ×2 (09:11→20:56)
[2018-11-22] MEDS: Ferrous Sulfate 325 MG TAB PO SCH (09:12)
[2018-11-22] MEDS: levETIRAcetam 500 mg/5 ml Oral Solution PO SCH ×2 (09:12→21:00)
[2018-11-22] MEDS: cefTRIAXone\\ROCEPHIN 1 GM in Sodium Chloride 0.9% 100 ML IVPB SCH (09:12)
[2018-11-22] MEDS: Trospium 20 MG TAB PO SCH ×2 (09:12→21:00)
[2018-11-22] MEDS: Gabapentin 300 MG CAP PO SCH ×2 (09:12→20:59)
[2018-11-22] MEDS: hydrALAZINE 25 MG TAB PO SCH ×3 (09:13→20:59)
--- NOTE | 2018-11-22 12:23 | CON ---
DATE OF CONSULTATION: HISTORY OF PRESENT ILLNESS: The patient is a 78-year-old woman who presented with altered mental status and was noted to have abnormal telemetry monitoring. She was found to have an abnormal cardiac arrhythmia on telemetry monitoring. The patient is unable to give any kind of coherent history. She apparently has had aortic valve replacement. The patient denies having any chest pain, dyspnea, or palpitations. The patient was admitted with a cerebrovascular accident. 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 PAST MEDICAL HISTORY: 1. History of chronic subdural hematoma. 2. Hypertension. 3. Diabetes mellitus. PAST SURGICAL HISTORY: She has had aortic valve replacement, tonsillectomy, cholecystectomy, tubal ligation, ankle surgery, foot surgery, rotator cuff surgery. ALLERGIES: NO KNOWN DRUG ALLERGIES. MEDICATIONS: See nursing list. SOCIAL HISTORY: Nonsmoker. FAMILY HISTORY: No strong family history of heart disease. PHYSICAL EXAMINATION: GENERAL: This is a confused woman. VITAL SIGNS: Blood pressure 144/57. NECK: Showed no jugular venous distention. LUNGS: Clear to auscultation. HEART: Regular rate and rhythm with a normal S1, S2, and a 2/6 systolic murmur. ABDOMEN: Distended. EXTREMITIES: Showed trace edema. VASCULAR: Radial pulses 2+. LABORATORY DATA: Her white blood cell count was 5.7, hemoglobin 9.9, hematocrit 29.5, and platelets 101. Sodium 136, potassium 3.8, chloride 109, bicarbonate 19, BUN 6, creatinine 0.69, glucose 135. Her EKG revealed her to have normal sinus rhythm with a nonspecific T-wave abnormality. Her telemetry monitoring revealed her to have a wide-complex tachycardia suggestive of nonsustained ventricular tachycardia. IMPRESSION: 1. Nonsustained ventricular tachycardia. 2. Chronic subdural hematoma. 3. Hypertension. 4. Diabetes mellitus. This patient had a short run of nonsustained ventricular tachycardia. She has a history of aortic valve replacement. We will try to obtain records. We will repeat an echocardiogram to re-evaluate her left ventricular function. We will start with beta-coco therapy. With the patient's poor overall health, we will treat medically. We will follow this patient with you through her hospitalization. Job ID: [id number]
--- NOTE | 2018-11-22 13:00 | MRI ---
MRI BRAIN NONCONTRAST: INDICATION: Stroke. History of subdural hematoma. FINDINGS: Reference is made to prior CT head 11/18/2018 and brain MRI 08/24/2018. FINDINGS: Redemonstration of a mixed signal intensity left subdural hematoma with associated gradient susceptib ility as well as interspersed areas of FLAIR and T2 hyperintensity. Intrinsic hyperintense T1 signal is also present. The finding is approximately 8 mm in thickness, stable in size documentation from 11/18/[address] There is slight rightward midline shift, measuring 3 mm at the level of septum pel lucidum. This is grossly stable. There is subarachnoid hemorrhage within the left cerebral hemispheric sulci. Small subdural hematoma overlies the right occipital lobe. There is also subdural hematoma along the cerebellar tentorium. This measures 1-2 mm in thickness. There is a focus of restricted diffusion adjacent the atria of t he left lateral ventricle indicating a small area of deep white matter recent infarction. IMPRESSION: 1. Bilateral subdural hematomas, left greater than right, as well as interspersed subarachnoid hemor rhagic signal intensity within the left cerebral hemisphere. 2. Small focus of recent deep white matter infarction of the posterior left cerebral hemisphere supe rimposed upon moderate chronic microvascular ischemic disease. 3. Mild rightward subfalcine herniation. Recommend continued imaging followup via head CT examinations. POS: [facility]
[2018-11-22] MEDS: HumaLOG 300 UNITS/3 ML VIAL SC PRN (13:49)
--- NOTE | 2018-11-22 14:40 | PDOC.PN ---
- Subjective Encounter Start Date: 11/22/18 Encounter Start Time: 12:15 Subjective: pt up in bed oriented to self only - Objective Resuscitation Status - Order Detail: 11/18/18 16:58 Resuscitation Status Routine Resuscitation Status: FULL: Full Resuscitation Vital Signs & Weight: Vital Signs (12 hours) Temp Pulse Pulse Pulse Resp BP BP 11/22/18 12:00 97.9 F 61 20 11/22/18 09:13 72 144/57 H 11/22/18 09:03 80 72 167/67 H 11/22/18 08:00 11/22/18 07:45 97.7 F 72 20 11/22/18 05:00 97.9 F 70 20 BP BP Pulse Ox 11/22/18 12:00 153/83 H 90 L 11/22/18 09:13 11/22/18 09:03 158/73 H 11/22/18 08:00 95 11/22/18 07:45 144/57 H 95 11/22/18 05:00 136/61 95 Weight Admit Weight 145 lb 11.609 oz Weight 144 lb 9.972 oz Most Recent Monitor Data Heart Rate from ECG 94 NIBP 172/84 NIBP BP-Mean 113 Respiration from ECG 23 SpO2 93 I&O: 11/21/18 11/22/18 11/23/18 06:59 06:59 06:59 Intake Total 4784 Output Total 453 Balance 4331 Result Diagrams: 11/21/18 06:14 11/21/18 06:14 Additional Labs: Accuchecks 11/22/18 11/22/18 11/21/18 10:50 06:04 21:42 POC Glucose 220 H 137 H 190 H 11/21/18 16:45 POC Glucose 139 H Phys Exam - Physical Examination Neck: no nodes, no JVD, supple, full ROM Respiratory: no wheezing, no rales, no rhonchi, wheezing present, clear to auscultation bilateral Cardiovascular: RRR, no significant murmur, no rub, gallop, irregular Gastrointestinal: soft, non-tender, no distention, positive bowel sounds right arm swelling Dx/Plan (1) Acute respiratory failure Code(s): J96.00 - ACUTE RESPIRATORY FAILURE, UNSP W HYPOXIA OR HYPERCAPNIA Status: Acute (2) Seizure Code(s): R56.9 - UNSPECIFIED CONVULSIONS Status: Acute (3) Subdural hematoma Code(s): S06.5X9A - TRAUM SUBDR HEM W LOC OF UNSP DURATION, INIT Status: Acute - Plan will get brain MRI since pt's family states that she much weaker on her -: right side. will also get doppler of her right arm * . Review of Systems - Review of Systems Other: unable to obtain - Medications/Allergies Allergies/Adverse Reactions: Allergies Allergy/AdvReac Type Severity Reaction Status Date / Time No Known Drug Allergies Allergy Verified 11/18/18 20:34 Medications: Current Medications Acetaminophen (Tylenol) 650 mg [place] Q4H PRN PRN Reason: Headache/Fever or Pain Last Admin: 11/21/18 22:18 Dose: 650 mg Atorvastatin Calcium (Lipitor) 20 mg PO HS [facility] Last Admin: 11/21/18 22:18 Dose: 20 mg Carvedilol (Coreg) 25 mg PO BID-[facility] Last Admin: 11/22/18 09:11 Dose: 25 mg Clonidine (Catapres) 0.1 mg PO PRN PRN PRN Reason: Hypertension Last Admin: 11/21/18 09:35 Dose: 0.1 mg Dextrose/Water (Dextrose 50%) 25 gm SLOW IVP PRN PRN PRN Reason: Hypoglycemia Famotidine (Pepcid) 20 mg PO BID [facility] Last Admin: 11/22/18 09:11 Dose: 20 mg Ferrous Sulfate (Feosol) 325 mg PO QAM [facility] Last Admin: 11/22/18 09:12 Dose: 325 mg Gabapentin (Neurontin) 300 mg PO BID [facility] Last Admin: 11/22/18 09:12 Dose: 300 mg Glucagon (Glucagon) 1 mg IM PRN PRN PRN Reason: Hypoglycemia Hydralazine HCl (Apresoline) 20 mg SLOW IVP Q15MIN PRN PRN Reason: SBP GREATER THAN 160 Last Admin: 11/21/18 12:39 Dose: 20 mg Hydralazine HCl (Apresoline) 25 mg PO TID [facility] Last Admin: 11/22/18 09:13 Dose: 25 mg Dextrose/Water (D5w) 1,000 mls @ 0 mls/hr IV .Q0M PRN PRN Reason: Hypoglycemia Ceftriaxone Sodium 1 gm/ (Sodium Chloride) 100 mls @ 200 mls/hr IVPB Q24HR [facility] Last Admin: 11/22/18 09:12 Dose: 100 mls Insulin Human Lispro (Humalog) 0 units SC .MILD SLIDING SCALE PRN PRN Reason: Mild Correctional Scale Last Admin: 11/22/18 13:49 Dose: 3 unit Labetalol HCl (Normodyne) 20 mg SLOW IVP Q15MIN PRN PRN Reason: SBP GREATER THAN 160 Levetiracetam (Keppra Oral Solution) 1,000 mg PO BID [facility] Last Admin: 11/22/18 09:12 Dose: 1,000 mg Lorazepam (Ativan) 2 mg SLOW IVP Q15MIN PRN PRN Reason: Seizures Memantine (Namenda) 10 mg PO BID [facility] Last Admin: 11/22/18 09:13 Dose: 10 mg Discontinue Previous Narcotic Pain Medications And Benzodiazepines 1 each FS .ONE [facility] Stop: 12/18/18 20:01 Ondansetron HCl (Zofran) 4 mg IVP Q6H PRN PRN Reason: Nausea/Vomiting Pantoprazole Sodium (Protonix) 40 mg PO DAILY [facility] Last Admin: 11/22/18 09:12 Dose: 40 mg Raloxifene HCl (Evista) 60 mg PO DAILY [facility] Last Admin: 11/22/18 09:11 Dose: 60 mg Sodium Chloride (Flush - Normal Saline) 10 ml IVF Q12HR [facility] Last Admin: 11/22/18 09:22 Dose: 10 ml Sodium Chloride (Flush - Normal Saline) 10 ml IVF PRN PRN PRN Reason: Saline Flush Trospium (Trospium) 20 mg PO BID [facility] Last Admin: 11/22/18 09:12 Dose: 20 mg
--- NOTE | 2018-11-22 15:39 | ULT ---
RIGHT UPPER EXTREMITY VENOUS DUPLEX EXAM: Ultrasound Doppler study is performed in the veins of the right upper extremity. INDICATION: Right upper extremity pain and edema. FINDINGS: The right subclavian vein shows normal blood flow with Doppler. The right internal jugular vein shows normal flow and compression. Right axillary vein, cephalic vein, brachial vein, and basilic vein all show normal blood flow and co mpression. Radial and ulnar veins showed normal flow. IMPRESSION: No evidence of right upper extremity venous thrombosis. POS: [facility]
[2018-11-22] MEDS: Atorvastatin Calcium 20 MG TAB PO SCH (20:56)
[2018-11-23] MEDS: Carvedilol 25 MG TAB PO SCH ×2 (09:04→17:49)
[2018-11-23] MEDS: hydrALAZINE 25 MG TAB PO SCH ×2 (09:05→21:40)
[2018-11-23] MEDS: Trospium 20 MG TAB PO SCH ×2 (09:05→22:38)
[2018-11-23] MEDS: Gabapentin 300 MG CAP PO SCH ×2 (09:05→21:39)
[2018-11-23] MEDS: Famotidine 20 MG TAB PO SCH ×2 (09:05→21:40)
[2018-11-23] MEDS: levETIRAcetam 500 mg/5 ml Oral Solution PO SCH ×2 (10:32→21:55)
[2018-11-23] MEDS: cefTRIAXone\\ROCEPHIN 1 GM in Sodium Chloride 0.9% 100 ML IVPB SCH (10:37)
[2018-11-23] MEDS: cloNIDine 0.1 MG TAB PO PRN (10:58)
[2018-11-23] MEDS ORDERED: Furosemide 40 MG/4 ML VIAL SLOW IVP SCH (11:15)
[2018-11-23] MEDS ORDERED: niCARdipine 25 MG in Sodium Chloride 0.9% 250 ML 250 ML IVPB SCH (12:00)
[2018-11-23] MEDS: Ferrous Sulfate 325 MG TAB PO SCH (12:01)
--- NOTE | 2018-11-23 12:10 | PRG ---
DATE OF SERVICE: 11/23/2018 CHIEF COMPLAINT: Possible stroke. INTERVAL HISTORY: The patient was seen by Dr. Miguel and Dr. Escalona recently, and now is asked to see the patient, to answer questions from daughters whether this patient had another acute stroke on top of her subdural hematoma. The patient is unable to give us much medical history. RECENT LABORATORY DATA: White count 5.7, hemoglobin 9.7, hematocrit 29.5, platelets 101. Chemistry; sodium was 136, potassium 3.8, chloride 109, bicarb 19, BUN 6, creatinine 0.69, glucose 135, magnesium 2.3, calcium 8.2. IMAGING STUDIES: Most recent MRI of the brain, which was performed on 11/22/2018, shows presence of bilateral subdural hematomas, left greater than right, as well as interspersed subarachnoid hemorrhagic signal intensity within the left cerebral hemisphere. She has a small focus of recent deep white matter infarction of the posterior left cerebral hemisphere superimposed upon moderate chronic microvascular ischemic disease. She has mild rightward subfalcine herniation. PHYSICAL EXAMINATION: VITAL SIGNS: Blood pressure is 222/89, pulse is 83, temperature is 99 degrees Fahrenheit. GENERAL APPEARANCE: She looks pale and is comfortable in bed and seems confused. NEUROLOGIC: Higher intellectual function, she is not able to follow commands. She is not oriented to time, place, or person. When asked about the current time, she stated her date of , and even with cuing, she did not get the year correct. Cranial nerves, pupils are reactive, 2 mm bilaterally. No facial asymmetry noted. Motor bulk normal. Tone normal. Strength 4/5 throughout, but left arm is fractured in May per daughter and she was in pain. She could not move her left arm. IMPRESSION: The patient is a 78-year-old woman with bilateral subdural hematomas plus chronic microvascular ischemic changes. She is not able to follow commands, and I am not sure whether the weakness is perceptive due to lack of cooperation versus actual physical weakness, both of which can be possible in her situation. RECOMMENDATIONS: I gave reasonable expectations to the daughter, and I stated it could take her a while before she recovers and that we need to give her time for slow recovery of function. At this time, she will not be able to interact much and she will probably need long-term rehab. Job ID: [id number]
--- NOTE | 2018-11-23 13:11 | RAD ---
XR Chest 1 View Portable History: Shortness of breath Comparison: Radiograph November 18, 2018 Findings: Lungs are clear. Chronic right posterior rib fractures. No pneumothorax. No effusion. Tendo n suture anchors in both humeral heads. Cardiac silhouette and mediastinal contours are within normal limits. Impression: No acute intrathoracic abnormality.
[2018-11-23] MEDS ORDERED: Amlodipine 10 MG TAB PO SCH (14:00)
[2018-11-23] MEDS: Acetaminophen 650 MG Suppository PR PRN (14:24)
[2018-11-23] MEDS: HumaLOG 300 UNITS/3 ML VIAL SC PRN (14:27)
--- NOTE | 2018-11-23 14:41 | PDOC.PN ---
- Subjective Encounter Start Date: 11/23/18 Encounter Start Time: 10:15 Subjective: pt up in bed confused, nurse stated that her blood pressure is -: very high. she has been given multiple bp meds and her bp is still high -: i updated her daughter and will transfer her to icu for cardene drip - Objective Resuscitation Status - Order Detail: 11/18/18 16:58 Resuscitation Status Routine Resuscitation Status: FULL: Full Resuscitation Vital Signs & Weight: Vital Signs (12 hours) Temp Pulse Resp BP BP Pulse Ox 11/23/18 14:23 81 156/78 H 11/23/18 12:07 196/93 H 11/23/18 11:50 235/135 H 11/23/18 11:30 60 20 96 11/23/18 10:58 99.0 F 222/89 H 222/89 H 11/23/18 10:32 210/68 H 11/23/18 09:05 83 182/60 H 11/23/18 08:38 99.9 F H 182/60 H 11/23/18 08:00 100.5 F H 83 20 202/87 H 95 11/23/18 07:52 82 202/87 H 11/23/18 04:00 99.2 F 87 19 154/75 H 94 L Weight Admit Weight 145 lb 11.609 oz Weight 144 lb 9.972 oz Most Recent Monitor Data Heart Rate from ECG 94 NIBP 172/84 NIBP BP-Mean 113 Respiration from ECG 23 SpO2 93 I&O: 11/22/18 11/23/18 11/24/18 06:59 06:59 06:59 Intake Total 920 Output Total 1 Balance 919 Result Diagrams: 11/21/18 06:14 11/21/18 06:14 Additional Labs: Accuchecks 11/23/18 11/23/18 11/22/18 10:34 05:35 19:28 POC Glucose 201 H 129 H 138 H 11/22/18 16:50 POC Glucose 149 H Phys Exam - Physical Examination Neck: no nodes, no JVD, supple, full ROM Respiratory: no wheezing, no rales, no rhonchi, wheezing present, clear to auscultation bilateral Cardiovascular: RRR, no significant murmur, no rub, gallop, irregular Gastrointestinal: soft, non-tender, no distention, positive bowel sounds Dx/Plan (1) Acute respiratory failure Code(s): J96.00 - ACUTE RESPIRATORY FAILURE, UNSP W HYPOXIA OR HYPERCAPNIA Status: Acute (2) Seizure Code(s): R56.9 - UNSPECIFIED CONVULSIONS Status: Acute (3) Subdural hematoma Code(s): S06.5X9A - TRAUM SUBDR HEM W LOC OF UNSP DURATION, INIT Status: Acute (4) Hypertension Code(s): I10 - ESSENTIAL (PRIMARY) HYPERTENSION Status: Acute - Plan spoke with bonnie ALANIS about mri finding. pt seen by -: neurology also. will transfer her to icu. i have added additional -: bp meds. will continue abx for uti. * . Review of Systems - Review of Systems Other: unable to obtain - Medications/Allergies Allergies/Adverse Reactions: Allergies Allergy/AdvReac Type Severity Reaction Status Date / Time No Known Drug Allergies Allergy Verified 11/18/18 20:34 Medications: Current Medications Acetaminophen (Tylenol) 650 mg CO Q4H PRN PRN Reason: Headache/Fever or Pain Last Admin: 11/23/18 14:24 Dose: 650 mg Amlodipine Besylate (Norvasc) 10 mg PO ONE [facility] Stop: 11/23/18 16:00 Last Admin: 11/23/18 14:23 Dose: 10 mg Atorvastatin Calcium (Lipitor) 20 mg PO HS [facility] Last Admin: 11/22/18 20:56 Dose: 20 mg Carvedilol (Coreg) 25 mg PO BID-WM [facility] Last Admin: 11/23/18 09:04 Dose: 25 mg Clonidine (Catapres) 0.1 mg PO PRN PRN PRN Reason: Hypertension Last Admin: 11/23/18 10:58 Dose: 0.1 mg Clonidine (Catapres) 0.1 mg PO BID [facility] Dextrose/Water (Dextrose 50%) 25 gm SLOW IVP PRN PRN PRN Reason: Hypoglycemia Famotidine (Pepcid) 20 mg PO BID [facility] Last Admin: 11/23/18 09:05 Dose: 20 mg Ferrous Sulfate (Feosol) 325 mg PO 1200 [facility] Last Admin: 11/23/18 12:01 Dose: 325 mg Gabapentin (Neurontin) 300 mg PO BID [facility] Last Admin: 11/23/18 09:05 Dose: 300 mg Glucagon (Glucagon) 1 mg IM PRN PRN PRN Reason: Hypoglycemia Hydralazine HCl (Apresoline) 20 mg SLOW IVP Q15MIN PRN PRN Reason: SBP GREATER THAN 160 Last Admin: 11/21/18 12:39 Dose: 20 mg Hydralazine HCl (Apresoline) 75 mg PO TID [facility] Dextrose/Water (D5w) 1,000 mls @ 0 mls/hr IV .Q0M PRN PRN Reason: Hypoglycemia Ceftriaxone Sodium 1 gm/ (Sodium Chloride) 100 mls @ 200 mls/hr IVPB Q24HR [facility] Last Admin: 11/23/18 10:37 Dose: 100 mls Nicardipine HCl 25 mg/ Sodium (Chloride) 260 mls @ 0 mls/hr IVPB INF [facility]; Protocol Insulin Human Lispro (Humalog) 0 units SC .MILD SLIDING SCALE PRN PRN Reason: Mild Correctional Scale Last Admin: 11/23/18 14:27 Dose: 3 unit Labetalol HCl (Normodyne) 20 mg SLOW IVP Q15MIN PRN PRN Reason: SBP GREATER THAN 160 Last Admin: 11/23/18 07:52 Dose: 20 mg Levetiracetam (Keppra Oral Solution) 1,000 mg PO BID [facility] Last Admin: 11/23/18 10:32 Dose: 1,000 mg Lorazepam (Ativan) 2 mg SLOW IVP Q15MIN PRN PRN Reason: Seizures Memantine (Namenda) 10 mg PO BID [facility] Last Admin: 11/23/18 09:05 Dose: 10 mg Discontinue Previous Narcotic Pain Medications And Benzodiazepines 1 each FS .ONE [facility] Stop: 12/18/18 20:01 Ondansetron HCl (Zofran) 4 mg IVP Q6H PRN PRN Reason: Nausea/Vomiting Pantoprazole Sodium (Protonix) 40 mg PO DAILY [facility] Last Admin: 11/23/18 09:05 Dose: 40 mg Raloxifene HCl (Evista) 60 mg PO DAILY [facility] Last Admin: 11/23/18 09:05 Dose: 60 mg Sodium Chloride (Flush - Normal Saline) 10 ml IVF Q12HR [facility] Last Admin: 11/23/18 10:57 Dose: 10 ml Sodium Chloride (Flush - Normal Saline) 10 ml IVF PRN PRN PRN Reason: Saline Flush Trospium (Trospium) 20 mg PO BID [facility] Last Admin: 11/23/18 09:05 Dose: 20 mg
[2018-11-23] MEDS ORDERED: hydrALAZINE 25 MG TAB PO SCH (15:00)
[2018-11-23] MEDS ORDERED: cloNIDine 0.1 MG TAB PO SCH (21:00)
--- NOTE | 2018-11-23 21:18 | EKG ---
Test Reason : STROKE Blood Pressure : / mmHG Vent. Rate : 092 BPM Atrial Rate : 092 BPM P-R Int : 158 ms QRS Dur : 088 ms QT Int : 400 ms P-R-T Axes : 065 -10 050 degrees QTc Int : 494 ms Normal sinus rhythm Possible Left atrial enlargement Septal infarct , age undetermined Abnormal ECG Confirmed by DEMI NAVARRO [id number]), metropolitan editor ALIYA WILSON ([id number] on 11/23/2018 9:18:31 PM Referred By: Confirmed By:DEMI NAVARRO
[2018-11-23] MEDS: Atorvastatin Calcium 20 MG TAB PO SCH (21:40)
[2018-11-23] MEDS: cloNIDine 0.1 MG TAB PO SCH (21:41)
[2018-11-24 05:38] LABS: #Eosinphils 0.2 thou/uL (0.0-0.7); #Lymphocytes 1.9 thou/uL (1.20-3.40); #Monocytes 0.7 thou/uL (0.11-0.59); #Neutrophils 5.2 thou/uL (1.40-6.50); %Basophils 0.5 % (0.0-1.0); %Monocytes 8.1 % (0.0-10.0); %Neutrophils 64.4 % (42.0-75.0); Hemoglobin 9.6 g/dL (12.0-16.0); Mean Corpuscular HGB CONC 33.1 g/dL (32.0-36.0); Mean Corpuscular Hemoglobin 31.4 pg (27.0-31.0); Mean Corpuscular Volume 94.9 fL (78.0-98.0); Mean Platelet Volume 7.5 fL (7.4-10.4); Platelet Count 147 thou/uL (130-400); RBC Distribution Width 13.8 % (11.5-14.5); Red Blood Cell (RBC) Count 3.04 mill/uL (4.20-5.40)
[2018-11-24 05:58] LABS: Anion Gap 13 mmol/L (10-20); BUN (Urea Nitrogen) 13 mg/dL (9.8-20.1); Calc. Creatinine Clearance 70 mL/min (70-130); Carbon Dioxide 22 mmol/L (23-31); Chloride 104 mmol/L (98-107); Estimated GFR-MDRD 82; Glucose 132 mg/dL (83-110); Potassium 3.1 mmol/L (3.5-5.1); Sodium 136 mmol/L (136-145)
[2018-11-24] MEDS: hydrALAZINE 25 MG TAB PO SCH ×3 (09:30→22:52)
[2018-11-24] MEDS: Carvedilol 25 MG TAB PO SCH ×2 (09:30→16:32)
[2018-11-24] MEDS: cloNIDine 0.1 MG TAB PO SCH ×2 (09:31→22:53)
[2018-11-24] MEDS: Trospium 20 MG TAB PO SCH ×2 (09:31→22:53)
[2018-11-24] MEDS: Gabapentin 300 MG CAP PO SCH ×2 (09:32→23:25)
[2018-11-24] MEDS: Famotidine 20 MG TAB PO SCH ×2 (09:34→23:25)
[2018-11-24] MEDS: levETIRAcetam 500 mg/5 ml Oral Solution PO SCH ×2 (09:34→22:52)
[2018-11-24] MEDS: cefTRIAXone\\ROCEPHIN 1 GM in Sodium Chloride 0.9% 100 ML IVPB SCH (10:16)
[2018-11-24] MEDS: HumaLOG 300 UNITS/3 ML VIAL SC PRN ×2 (11:48→16:35)
[2018-11-24] MEDS: Ferrous Sulfate 325 MG TAB PO SCH (11:51)
--- NOTE | 2018-11-24 14:47 | PDOC.PN ---
- Subjective Encounter Start Date: 11/24/18 Encounter Start Time: 09:45 Subjective: pt up in bed more awake - Objective Resuscitation Status - Order Detail: 11/18/18 16:58 Resuscitation Status Routine Resuscitation Status: FULL: Full Resuscitation Vital Signs & Weight: Vital Signs (12 hours) Temp Pulse Pulse Pulse Resp BP BP 11/24/18 11:36 98 F 83 18 11/24/18 10:58 72 75 137/62 11/24/18 09:31 119/65 11/24/18 09:30 82 145/69 H 11/24/18 07:38 99 F 82 18 11/24/18 04:00 100.1 F H 81 16 BP BP Pulse Ox 11/24/18 11:36 141/65 H 92 L 11/24/18 10:58 137/55 L 11/24/18 09:31 11/24/18 09:30 145/69 H 11/24/18 07:38 119/65 93 L 11/24/18 04:00 117/60 92 L Weight Admit Weight 150 lb 2.157 oz Weight 144 lb 9.972 oz Most Recent Monitor Data Heart Rate from ECG 80 NIBP 96/42 NIBP BP-Mean 60 Respiration from ECG 17 SpO2 93 I&O: 11/23/18 11/24/18 11/25/18 06:59 06:59 06:59 Intake Total 920 420 Output Total 1 892 Balance 919 -472 Result Diagrams: 11/24/18 05:04 11/24/18 05:04 Additional Labs: Accuchecks 11/24/18 11/23/18 11/23/18 11:37 21:55 17:50 POC Glucose 152 H 127 H 117 H 11/23/18 14:29 POC Glucose 217 H Phys Exam - Physical Examination Neck: no nodes, no JVD, supple, full ROM Respiratory: no wheezing, no rales, no rhonchi, wheezing present, clear to auscultation bilateral Cardiovascular: RRR, no significant murmur, no rub, gallop, irregular Gastrointestinal: soft, non-tender, no distention, positive bowel sounds Dx/Plan (1) Acute respiratory failure Code(s): J96.00 - ACUTE RESPIRATORY FAILURE, UNSP W HYPOXIA OR HYPERCAPNIA Status: Acute (2) Seizure Code(s): R56.9 - UNSPECIFIED CONVULSIONS Status: Acute (3) Subdural hematoma Code(s): S06.5X9A - TRAUM SUBDR HEM W LOC OF UNSP DURATION, INIT Status: Acute - Plan will continue abx, pt's vitals stable -: spoke with neurosurg who did stated that the right side -: Subdural hematoma was present before. she continues to do well -: she will need snf. cdiff negative, she has elevated wbc in her stool -: i will add a probiotic. she has not had any more loose stools * . Review of Systems - Review of Systems Other: unable to obtain - Medications/Allergies Allergies/Adverse Reactions: Allergies Allergy/AdvReac Type Severity Reaction Status Date / Time No Known Drug Allergies Allergy Verified 11/18/18 20:34 Medications: Current Medications Acetaminophen (Tylenol) 650 mg [place] Q4H PRN PRN Reason: Headache/Fever or Pain Last Admin: 11/23/18 14:24 Dose: 650 mg Atorvastatin Calcium (Lipitor) 20 mg PO HS [facility] Last Admin: 11/23/18 21:40 Dose: 20 mg Carvedilol (Coreg) 25 mg PO BID-WM [facility] Last Admin: 11/24/18 09:30 Dose: 25 mg Clonidine (Catapres) 0.1 mg PO PRN PRN PRN Reason: Hypertension Last Admin: 11/23/18 10:58 Dose: 0.1 mg Clonidine (Catapres) 0.1 mg PO BID [facility] Last Admin: 11/24/18 09:31 Dose: 0.1 mg Dextrose/Water (Dextrose 50%) 25 gm SLOW IVP PRN PRN PRN Reason: Hypoglycemia Famotidine (Pepcid) 20 mg PO BID [facility] Last Admin: 11/24/18 09:34 Dose: 20 mg Ferrous Sulfate (Feosol) 325 mg PO 1200 [facility] Last Admin: 11/24/18 11:51 Dose: 325 mg Gabapentin (Neurontin) 300 mg PO BID [facility] Last Admin: 11/24/18 09:32 Dose: 300 mg Glucagon (Glucagon) 1 mg IM PRN PRN PRN Reason: Hypoglycemia Hydralazine HCl (Apresoline) 20 mg SLOW IVP Q15MIN PRN PRN Reason: SBP GREATER THAN 160 Last Admin: 11/21/18 12:39 Dose: 20 mg Hydralazine HCl (Apresoline) 75 mg PO TID [facility] Last Admin: 11/24/18 09:30 Dose: 75 mg Dextrose/Water (D5w) 1,000 mls @ 0 mls/hr IV .Q0M PRN PRN Reason: Hypoglycemia Ceftriaxone Sodium 1 gm/ (Sodium Chloride) 100 mls @ 200 mls/hr IVPB Q24HR [facility] Last Admin: 11/24/18 10:16 Dose: 100 mls Insulin Human Lispro (Humalog) 0 units SC .MILD SLIDING SCALE PRN PRN Reason: Mild Correctional Scale Last Admin: 11/24/18 11:48 Dose: 2 unit Labetalol HCl (Normodyne) 20 mg SLOW IVP Q15MIN PRN PRN Reason: SBP GREATER THAN 160 Last Admin: 11/23/18 07:52 Dose: 20 mg Levetiracetam (Keppra Oral Solution) 1,000 mg PO BID [facility] Last Admin: 11/24/18 09:34 Dose: 1,000 mg Lorazepam (Ativan) 2 mg SLOW IVP Q15MIN PRN PRN Reason: Seizures Memantine (Namenda) 10 mg PO BID [facility] Last Admin: 11/24/18 09:34 Dose: 10 mg Discontinue Previous Narcotic Pain Medications And Benzodiazepines 1 each FS .ONE [facility] Stop: 12/18/18 20:01 Ondansetron HCl (Zofran) 4 mg IVP Q6H PRN PRN Reason: Nausea/Vomiting Pantoprazole Sodium (Protonix) 40 mg PO DAILY [facility] Last Admin: 11/24/18 09:32 Dose: 40 mg Raloxifene HCl (Evista) 60 mg PO DAILY [facility] Last Admin: 11/24/18 09:34 Dose: 60 mg Sodium Chloride (Flush - Normal Saline) 10 ml IVF Q12HR [facility] Last Admin: 11/24/18 10:18 Dose: 10 ml Sodium Chloride (Flush - Normal Saline) 10 ml IVF PRN PRN PRN Reason: Saline Flush Trospium (Trospium) 20 mg PO BID [facility] Last Admin: 11/24/18 09:31 Dose: 20 mg
[2018-11-24] MEDS: Atorvastatin Calcium 20 MG TAB PO SCH (22:53)
[2018-11-25 08:19] LABS: Anion Gap 14 mmol/L (10-20); BUN (Urea Nitrogen) 14 mg/dL (9.8-20.1); Calc. Creatinine Clearance 66 mL/min (70-130); Calcium 8.9 mg/dL (7.8-10.44); Carbon Dioxide 21 mmol/L (23-31); Chloride 104 mmol/L (98-107); Estimated GFR-MDRD 77; Glucose 136 mg/dL (83-110); Potassium 3.1 mmol/L (3.5-5.1); Sodium 136 mmol/L (136-145)
[2018-11-25] MEDS ORDERED: Saccharomyces boulardii 250 MG CAP PO SCH (09:00)
[2018-11-25] MEDS: Gabapentin 300 MG CAP PO SCH (09:27)
[2018-11-25] MEDS: Famotidine 20 MG TAB PO SCH (09:27)
[2018-11-25] MEDS: cloNIDine 0.1 MG TAB PO SCH (09:28)
[2018-11-25] MEDS: Trospium 20 MG TAB PO SCH (09:28)
[2018-11-25] MEDS: hydrALAZINE 25 MG TAB PO SCH ×2 (09:28→14:53)
[2018-11-25] MEDS: cefTRIAXone\\ROCEPHIN 1 GM in Sodium Chloride 0.9% 100 ML IVPB SCH (09:29)
[2018-11-25] MEDS: Carvedilol 25 MG TAB PO SCH ×2 (09:29→18:32)
[2018-11-25] MEDS: levETIRAcetam 500 mg/5 ml Oral Solution PO SCH (09:29)
[2018-11-25] MEDS: HumaLOG 300 UNITS/3 ML VIAL SC PRN (11:10)
[2018-11-25] MEDS: Ferrous Sulfate 325 MG TAB PO SCH (11:10)
--- NOTE | 2018-11-25 13:29 | PDOC.PN ---
- Subjective Encounter Start Date: 11/25/18 Encounter Start Time: 10:30 Subjective: pt up in bed does not appear in any distress - Objective Resuscitation Status - Order Detail: 11/18/18 16:58 Resuscitation Status Routine Resuscitation Status: FULL: Full Resuscitation Vital Signs & Weight: Vital Signs (12 hours) Temp Pulse Pulse Pulse Resp BP BP 11/25/18 12:00 99.3 F 84 18 11/25/18 09:45 85 93 161/76 H 11/25/18 09:30 11/25/18 09:28 81 154/75 H 11/25/18 07:41 100.1 F H 81 18 11/25/18 04:00 99.6 F 87 20 BP BP Pulse Ox 11/25/18 12:00 159/77 H 92 L 11/25/18 09:45 137/67 11/25/18 09:30 92 L 11/25/18 09:28 11/25/18 07:41 154/75 H 92 L 11/25/18 04:00 123/64 92 L Weight Admit Weight 150 lb 2.157 oz Weight 144 lb 9.972 oz Most Recent Monitor Data Heart Rate from ECG 80 NIBP 96/42 NIBP BP-Mean 60 Respiration from ECG 17 SpO2 93 I&O: 11/24/18 11/25/18 11/26/18 06:59 06:59 06:59 Intake Total 420 700 Output Total 892 575 Balance -472 700 575 Result Diagrams: 11/24/18 05:04 11/25/18 07:52 Additional Labs: Accuchecks 11/25/18 11/25/18 11/24/18 10:47 05:51 20:33 POC Glucose 195 H 157 H 165 H 11/24/18 16:36 POC Glucose 155 H Phys Exam - Physical Examination Neck: no nodes, no JVD, supple, full ROM Respiratory: no wheezing, no rales, no rhonchi, wheezing present, clear to auscultation bilateral Cardiovascular: RRR, no significant murmur, no rub, gallop, irregular Gastrointestinal: soft, non-tender, no distention, positive bowel sounds Musculoskeletal: no edema, pulses present, edema present Dx/Plan (1) Acute respiratory failure Code(s): J96.00 - ACUTE RESPIRATORY FAILURE, UNSP W HYPOXIA OR HYPERCAPNIA Status: Acute (2) Seizure Code(s): R56.9 - UNSPECIFIED CONVULSIONS Status: Acute (3) Subdural hematoma Code(s): S06.5X9A - TRAUM SUBDR HEM W LOC OF UNSP DURATION, INIT Status: Acute (4) UTI (urinary tract infection) Status: Acute - Plan incentive spirometry will add incentive spirometry, not sure if pt will be able to do this -: she has a low grade fever, cxr few days ago normal -: pt's blood pressure stable -: per nursing no more diarrhea, cdiff negative * . Review of Systems - Review of Systems Other: unable to obtain - Medications/Allergies Allergies/Adverse Reactions: Allergies Allergy/AdvReac Type Severity Reaction Status Date / Time No Known Drug Allergies Allergy Verified 11/18/18 20:34 Medications: Current Medications Acetaminophen (Tylenol) 650 mg [place] Q4H PRN PRN Reason: Headache/Fever or Pain Last Admin: 11/23/18 14:24 Dose: 650 mg Atorvastatin Calcium (Lipitor) 20 mg PO [facility] Last Admin: 11/24/18 22:53 Dose: 20 mg Carvedilol (Coreg) 25 mg PO BID-[facility] Last Admin: 11/25/18 09:29 Dose: 25 mg Clonidine (Catapres) 0.1 mg PO PRN PRN PRN Reason: Hypertension Last Admin: 11/23/18 10:58 Dose: 0.1 mg Clonidine (Catapres) 0.1 mg PO BID [facility] Last Admin: 11/25/18 09:28 Dose: 0.1 mg Dextrose/Water (Dextrose 50%) 25 gm SLOW IVP PRN PRN PRN Reason: Hypoglycemia Famotidine (Pepcid) 20 mg PO BID [facility] Last Admin: 11/25/18 09:27 Dose: 20 mg Ferrous Sulfate (Feosol) 325 mg PO 1200 [facility] Last Admin: 11/25/18 11:10 Dose: 325 mg Gabapentin (Neurontin) 300 mg PO BID [facility] Last Admin: 11/25/18 09:27 Dose: 300 mg Glucagon (Glucagon) 1 mg IM PRN PRN PRN Reason: Hypoglycemia Hydralazine HCl (Apresoline) 20 mg SLOW IVP Q15MIN PRN PRN Reason: SBP GREATER THAN 160 Last Admin: 11/21/18 12:39 Dose: 20 mg Hydralazine HCl (Apresoline) 75 mg PO TID [facility] Last Admin: 11/25/18 09:28 Dose: 75 mg Dextrose/Water (D5w) 1,000 mls @ 0 mls/hr IV .Q0M PRN PRN Reason: Hypoglycemia Ceftriaxone Sodium 1 gm/ (Sodium Chloride) 100 mls @ 200 mls/hr IVPB Q24HR [facility] Last Admin: 11/25/18 09:29 Dose: 100 mls Insulin Human Lispro (Humalog) 0 units SC .MILD SLIDING SCALE PRN PRN Reason: Mild Correctional Scale Last Admin: 11/25/18 11:10 Dose: 2 unit Labetalol HCl (Normodyne) 20 mg SLOW IVP Q15MIN PRN PRN Reason: SBP GREATER THAN 160 Last Admin: 11/23/18 07:52 Dose: 20 mg Levetiracetam (Keppra Oral Solution) 1,000 mg PO BID [facility] Last Admin: 11/25/18 09:29 Dose: 1,000 mg Lorazepam (Ativan) 2 mg SLOW IVP Q15MIN PRN PRN Reason: Seizures Memantine (Namenda) 10 mg PO BID [facility] Last Admin: 11/25/18 09:29 Dose: 10 mg Discontinue Previous Narcotic Pain Medications And Benzodiazepines 1 each FS .ONE [facility] Stop: 12/18/18 20:01 Ondansetron HCl (Zofran) 4 mg IVP Q6H PRN PRN Reason: Nausea/Vomiting Pantoprazole Sodium (Protonix) 40 mg PO DAILY [facility] Last Admin: 11/25/18 09:29 Dose: 40 mg Raloxifene HCl (Evista) 60 mg PO DAILY [facility] Last Admin: 11/25/18 09:27 Dose: 60 mg Saccharomyces Boulardii (Florastor) 250 mg PO DAILY [facility] Last Admin: 11/25/18 09:28 Dose: 250 mg Sodium Chloride (Flush - Normal Saline) 10 ml IVF Q12HR [facility] Last Admin: 11/25/18 09:30 Dose: 10 ml Sodium Chloride (Flush - Normal Saline) 10 ml IVF PRN PRN PRN Reason: Saline Flush Trospium (Trospium) 20 mg PO BID [facility] Last Admin: 11/25/18 09:28 Dose: 20 mg
[2018-11-25 15:34] VITALS: BP 145/69; TEMP 99.4
--- NOTE | 2018-11-26 05:10 | DIS ---
DATE OF ADMISSION: 11/18/2018 DATE OF DISCHARGE: 11/25/2018 DISCHARGE DIAGNOSES: 1. Acute respiratory failure. 2. Seizures, new onset. 3. Subdural hematoma. 4. Urinary tract infection. 5. 5-10 beats of ventricular tachycardia. HOSPITAL COURSE: The patient is a 78-year-old female who initially presented to the hospital on 11/18, with change in mental status. The patient at that time was found to have a possible seizure and at this time was intubated in the ER for respiratory protection. She underwent a CTA and also brain CT. The CTA indicated no significant CTA abnormalities of the head, stable left parietal subdural hematoma. She also had a brain CT which indicated redemonstration of subdural hemorrhage along the left occipital parietal convexity. Additional subarachnoid blood along the left and the right tentorium of the posterior falx. She also had some loss of nogueira-white matter differential. The patient the following day was extubated. She continued to do well. She was seen by Neurology and also by executive team leader. She did have an EEG, which indicated an abnormal study suggesting of diffuse slowing consistent with diffuse encephalopathic process. The patient was put on Keppra 1000 mg b.i.d. She again continued to improve. While during the hospitalization, she did have a few beats of ventricular tachycardia. At which point, she was seen by Cardiology and underwent an echocardiogram which indicated an EF of 60% to 65%, and a bioprosthetic valve. No thrombus was noted. She continued to improve. She had no more events of that. Also, she had some weakness on the right side. At this time, a brain MRI was done which did indicate a small foci of her recent deep white matter infarct, which was in the posterior left cerebral hemisphere, which was very deep and also just moderate chronic microvascular ischemia. She also had an indication of the left and right bilateral subdural hematoma with interspersed subarachnoid hemorrhage signal intensity within the left cerebral hemisphere. Again, this was unchanged from the previous CAT scan. I did discuss this with Neurosurgery PA who looked into it and stated that this was unchanged. The patient again continued to improve. Her blood pressure management was an issue. She was at one point sent back to the ICU to be on a Cardene drip due to uncontrolled blood pressure. However, she never required the Cardene drip and the patient's blood pressure was managed adequately with just oral medications. The patient did have a UTI in the hospital. Her cultures indicated Enterobacter cloacae. She was given 7 days of IV antibiotics. She also had some diarrhea in which C diff was collected and C diff was negative. She did have a stool for lactoferrin that indicated the presence of elevated fecal lactoferrin. However, upon asking the nurses, the patient had no more diarrhea. The patient will be discharged today to [facility] and she will follow up with Neurosurgery and also her primary. MEDICATIONS: Her medications are going to be as the followin. Coreg 25 mg b.i.d. 2. Hydralazine 75 mg t.i.d. 3. Keppra 1000 mg b.i.d. 4. Vitamin B and vitamin C one p.o. daily. 5. Iron 325 p.o. daily. 6. Lasix 40 mg daily. 7. Gabapentin 300 mg b.i.d. 8. Omeprazole 20 mg daily. 9. Potassium chloride 10 mEq daily. 10. Pravastatin 80 mg daily. 11. 10 mg b.i.d. 12. Clonidine 0.1 p.o. b.i.d. p.r.n. 13. Janumet one p.o. b.i.d. Again, she will be discharged today. She will follow up with primary. The patient was seen today and there is a progress note for this patient. Job ID: [id number]
--- NOTE | 2018-11-26 10:39 | PDOC.PALCO ---
Palliative Care Consult - Consult Details Requesting Physician: Dr Duran Reason for Consult: goals of care - Pertinent HPI Patient admitted from ER secondary to AMS. - Medications MAR Reviewed: Yes - Allergies Allergies/Adverse Reactions: Allergies Allergy/AdvReac Type Severity Reaction Status Date / Time No Known Drug Allergies Allergy Verified 11/18/18 20:34 - Objective Vital Signs: Vital Signs - Most Recent Temp Pulse Resp BP Pulse Ox 99.4 F 80 18 145/69 H 93 L 11/25/18 15:33 11/25/18 15:33 11/25/18 15:33 11/25/18 15:33 11/25/18 15:33 - Plan/Recommendations Plan: [] minutes spent on this encounter with >50% of the time in counseling and coordination of care. Thank you for this very appropriate consult.
== END 2018-11-25 18:56 | disposition home or self-care (01) | DRG 82 ==
LOC: ERS 14:41 → CCU 19:54 → 2SE 11-20 16:37 → CCU 11-23 13:51 → 2SE 11-23 23:38
PROVIDERS: ADMIT Internal Medicine; ATTEND Internal Medicine
PROC: 0BH17EZ Insertion of Endotracheal Airway into Trachea, Via Natural or Artificial Opening (ICD-10-PCS; principal; 2018-11-18)
PROC: 5A1935Z Respiratory Ventilation, Less than 24 Consecutive Hours (ICD-10-PCS; 2018-11-18)
DX: S06.5X9A Traumatic subdural hemorrhage with loss of consciousness of unspecified duration, initial encounter (principal); J96.00 Acute respiratory failure, unspecified whether with hypoxia or hypercapnia; G93.41 Metabolic encephalopathy; A41.9 Sepsis, unspecified organism; E87.1 Hypo-osmolality and hyponatremia; N39.0 Urinary tract infection, site not specified; I47.2 Ventricular tachycardia; G81.91 Hemiplegia, unspecified affecting right dominant side; M81.0 Age-related osteoporosis without current pathological fracture; R29.810 Facial weakness; I10 Essential (primary) hypertension; E11.9 Type 2 diabetes mellitus without complications; R56.9 Unspecified convulsions; G50.0 Trigeminal neuralgia; F03.90 Unspecified dementia, unspecified severity, without behavioral disturbance, psychotic disturbance, mood disturbance, and anxiety; Z95.2 Presence of prosthetic heart valve; Z98.51 Tubal ligation status; Z90.49 Acquired absence of other specified parts of digestive tract
CPT/HCPCS: 31500; 36415; 36416; 70450; 70496; 70551; 71045; 80048; 80053; 81001; 82553; 82805; 83630; 83735; 83930; 83935; 84100; 84300; 84484; 85014; 85018; 85025; 85610; 85730; 87040; 87077; 87086; 87186; 87324; 87449; 90471; 90670; 93005; 93306; 94002; 94003; 94760; 95816; 95819; 96365; 96366; 96374; 96375; 96376; G0009; J0360; J0696; J1940; J1953; J2060; J2543; J3010; J3370; J3475; J3490; J7050; Q9966; S0028

== ENCOUNTER 2018-12-11 08:09 | Outpatient (CLI) | payer MEDICARE, OTHER ==
--- NOTE | 2018-12-11 09:08 | CT ---
CT BRAIN WITHOUT CONTRAST: HISTORY: Trauma, followup for traumatic subdural hematoma. COMPARISON: 11/18/2018. FINDINGS: A tiny residual left subdural hematoma is seen measuring 2 mm in thickness since the previous exam of 11/18/2018. No new areas of intracranial hemorrhage are seen. No midline shift is identified. There are changes of chronic small-vessel ischemic disease and cortical atrophy again noted. The bony akira varium is intact. The visualized paranasal sinuses and mastoid air cells are well aerated. IMPRESSION: Interval improvement since 11/18/2018 with tiny residual left subdural hematoma. POS: OFF
== END 2018-12-11 08:10 | disposition home or self-care (01) ==
LOC: CT 08:09
PROVIDERS: ATTEND Neurological Surgery
DX: S06.5X9D Traumatic subdural hemorrhage with loss of consciousness of unspecified duration, subsequent encounter (principal)
CPT/HCPCS: 70450

== ENCOUNTER 2019-02-26 12:05 | Observation (INO) | payer MEDICARE, OTHER ==
[2019-02-26 13:27] LABS: INR-International Normal Ratio 1.1; PTT 29.2 SEC (22.9-36.1); Prothrombin Time 14.6 SEC (12.0-14.7)
[2019-02-26 13:33] LABS: Hemoglobin 9.6 g/dL (12.0-16.0); Mean Corpuscular HGB CONC 32.9 g/dL (32.0-36.0); Mean Corpuscular Hemoglobin 32.4 pg (27.0-31.0); Mean Corpuscular Volume 98.5 fL (78.0-98.0); Mean Platelet Volume 6.4 fL (7.4-10.4); Platelet Count 115 thou/uL (130-400); RBC Distribution Width 13.8 % (11.5-14.5); Red Blood Cell (RBC) Count 2.96 mill/uL (4.20-5.40); White Blood Cell (WBC) Count 5.5 thou/uL (4.8-10.8)
[2019-02-26 13:35] LABS: ALT (SGPT) 12 U/L (8-55); AST (SGOT) 18 U/L (5-34); Alkaline Phosphatase 60 U/L (40-110); Anion Gap 17 mmol/L (10-20); BUN (Urea Nitrogen) 11 mg/dL (9.8-20.1); Bilirubin, Total 0.3 mg/dL (0.2-1.2); Calc. Creatinine Clearance 0 mL/min (70-130); Calcium 7.9 mg/dL (7.8-10.44); Carbon Dioxide 24 mmol/L (23-31); Chloride 100 mmol/L (98-107); Estimated GFR-MDRD 62; Glucose 88 mg/dL (83-110); Potassium 4.1 mmol/L (3.5-5.1); Sodium 137 mmol/L (136-145)
[2019-02-26 13:51] LABS: #Basophils 0.1 thou/uL (0.0-0.2); #Eosinphils 0.1 thou/uL (0.0-0.7); #Lymphocytes 1.6 thou/uL (1.20-3.40); #Monocytes 0.5 thou/uL (0.11-0.59); #Neutrophils 3.3 thou/uL (1.40-6.50); %Basophils 1.2 % (0.0-1.0); %Eosinophils 2.2 % (0.0-10.0); %Lymphocytes 29.1 % (21.0-51.0); %Monocytes 8.3 % (0.0-10.0); %Neutrophils 59.1 % (42.0-75.0); Hypochromia SLIGHT = 6-15 cells (100X) (0-5/hpf); MDiff Complete? YES; Platelet Morphology Comment Appears Decreased
[2019-02-26] MEDS ORDERED: Pantoprazole 40 MG VIAL ONE (14:12)
[2019-02-26] MEDS: Sodium Chloride 0.9% 1,000 ML IV SCH (17:37)
[2019-02-26 18:24] VITALS: BMI 24.3
[2019-02-26] MEDS ORDERED: Sodium Chloride 0.9% (PF) 10 ML VIAL FS PRN (20:50)
[2019-02-26 21:02] LABS: Hemoglobin 9.4 g/dL (12.0-16.0)
[2019-02-26 21:36] LABS: Iron 59 ug/dL (50-170); Iron Binding Capacity, Total 168 mcg/dL (265-497)
[2019-02-26] MEDS: Pantoprazole 40 MG VIAL IVP SCH (21:54)
[2019-02-26] MEDS ORDERED: Acetaminophen 325 MG TAB PO PRN (22:13)
[2019-02-27] MEDS ORDERED: Acetaminophen 500 MG TAB PO PRN (01:31)
[2019-02-27] MEDS ORDERED: Furosemide 20 MG TAB PO PRN (01:31)
[2019-02-27] MEDS: Sodium Chloride 0.9% 1,000 ML IV SCH (01:55)
--- NOTE | 2019-02-27 02:30 | HP ---
PRIMARY CARE PHYSICIAN: Dr. Antoni Bunch. CHIEF COMPLAINT: Diarrhea and melena. HISTORY OF PRESENT ILLNESS: Ms. Yoon is a 78-year-old female, who was brought to the emergency room from the longterm for evaluation of black tarry diarrhea, onset yesterday. Daughter reports that she called her primary care physician and was prescribed Lomotil this morning. Daughter reports three more episodes this morning. Reports that she has chronic diarrhea, but states that has never been black. The patient denies abdominal pain, nausea, vomiting. The patient has some dementia and is a poor historian. Daughter reports that she does not take any blood thinners. Does have a history of a brain bleed in May of 2018 related to a fall. She has a past medical history of hypertension, diabetes, osteoporosis, hyponatremia, CAD, dementia. In the emergency room, her hemoglobin was found to be 9.6. The last time it was checked was 12/12/2018, it was 11.6. Prior to that on 11/24/2018, it was also 9.6. Hematocrit is 29.1, platelets are 115. The patient was admitted on November 18, 2018, for acute respiratory failure, new onset seizures, subdural hematoma, urinary tract infection, and 5 to 10 beats of ventricular tachycardia. She was admitted on this last visit in November with a change in mental status, found to have a possible seizure and was intubated. At that time, she was put on Keppra 1000 mg p.o. b.i.d. and she continued to improve. She was seen by Cardiology after some beats of ventricular tachycardia and echocardiogram which showed an EF of 60% to 65%, and a bioprosthetic valve. No thrombus was noted. Neurosurgery evaluated the subdural and decided it was unchanged from the last time it was checked. Her blood pressure was labile. She was sent back to ICU during the stay on a Cardene drip. She did have a UTI on that hospital stay. She was given IV antibiotics. Chemistry was unremarkable. Iron 59, TIBC 168, ferritin 130, and guaiac in the emergency room [facility] was negative for occult blood. She was admitted to the medical floor for further management. PAST MEDICAL HISTORY: Subdural hematoma, UTI, hyponatremia, hypertension, dementia, diabetes, and has had an aortic valve repair. SURGICAL HISTORY: Basal cell carcinoma removed, aortic valve replacement, cardiac catheterization, tonsillectomy, tubal ligation, cholecystectomy, bilateral rotator cuff repair, right ankle surgery, right foot surgery. SOCIAL HISTORY: No drug or drug use. No tobacco history. She is currently a resident of a longterm. ALLERGIES: NONE. HOME MEDICATIONS: 1. Clonidine 0.1 mg p.o. b.i.d. 2. Furosemide 40 mg p.o. daily. 3. Apresoline 25 mg p.o. t.i.d. 4. Namenda 10 mg p.o. b.i.d. 5. Trileptal 300 mg p.o. b.i.d. 6. Ditropan 5 mg p.o. daily. 7. Protonix 20 mg p.o. daily. 8. K-Dur 20 mEq p.o. b.i.d. 9. Pravachol 80 mg p.o. q.p.m. 10. Raloxifene 60 mg p.o. daily. 11. Januvia 100 mg p.o. b.i.d. 12. Tylenol Extra Strength 1000 mg p.o. q.6 hours as needed,. 13. Coreg 25 mg p.o. b.i.d. PHYSICAL EXAMINATION: VITAL SIGNS: Blood pressure 125/73, pulse is 84, temp is 98, O2 sats are 97% on room air. CONSTITUTIONAL: The patient appears nontoxic. She is alert and oriented to person, place, and time. HEAD: Atraumatic and normocephalic. EYES: Eyelids are normal to inspection. Pupils equally round and reactive to light. Extraocular muscles are intact. ENT: Mouth exam is normal. Mucous membranes are moist. NECK: Normal range of motion. Trachea is midline. RESPIRATORY: Chest breath sounds are clear. Chest expansion is equal. CARDIOVASCULAR: Regular heart rate and rhythm. Heart sounds are normal. ABDOMEN: Nontender. Bowel sounds are heard. BACK: Normal range of motion. No tenderness. There is a small area of erythema to the sacral area. Upper extremity normal range of motion. Radial pulses are equal. There is a brace on the left arm. EXTREMITIES: Lower extremity, normal range of motion. Motor strength is normal. Pedal pulses are normal. No edema is noted. NEURO: She is oriented to person and place. Speech is normal. SKIN: Warm, dry, and normal in color. PSYCH: She has a normal affect. She is oriented to person and place. PLAN/ASSESSMENT: 1. Chronic diarrhea versus melena. The patient is not on any anticoagulations. Guaiac in the ER was negative. Iron studies have been ordered. We will ask GI to consult. 2. History of dementia. We will continue home medications. 3. History of hypertension. We will continue home medications. We will trend and add p.r.n. medications as needed. 4. Hyperlipidemia. We will restart the Pravachol. 5. Seizure disorder. We will continue home medications. 6. The patient is placed on gastrointestinal prophylaxis. 7. Deep venous thrombosis prophylaxis with SCDs. 8. Hospital course dependent on clinical findings. Job ID: [id number]
[2019-02-27 05:34] LABS: #Basophils 0.1 thou/uL (0.0-0.2); #Eosinphils 0.2 thou/uL (0.0-0.7); #Monocytes 0.4 thou/uL (0.11-0.59); #Neutrophils 2.9 thou/uL (1.40-6.50); %Eosinophils 3.1 % (0.0-10.0); %Lymphocytes 35.7 % (21.0-51.0); %Monocytes 7.3 % (0.0-10.0); Hemoglobin 9.6 g/dL (12.0-16.0); Mean Corpuscular HGB CONC 33.9 g/dL (32.0-36.0); Mean Corpuscular Hemoglobin 33.6 pg (27.0-31.0); Mean Corpuscular Volume 99.3 fL (78.0-98.0); Mean Platelet Volume 7.3 fL (7.4-10.4); Platelet Count 115 thou/uL (130-400); RBC Distribution Width 13.4 % (11.5-14.5); Red Blood Cell (RBC) Count 2.84 mill/uL (4.20-5.40); White Blood Cell (WBC) Count 5.5 thou/uL (4.8-10.8)
[2019-02-27 05:44] LABS: ALT (SGPT) Less than 7 U/L (8-55); AST (SGOT) 17 U/L (5-34); Albumin 2.6 g/dL (3.4-4.8); Alkaline Phosphatase 54 U/L (40-110); Anion Gap 13 mmol/L (10-20); BUN (Urea Nitrogen) 9 mg/dL (9.8-20.1); Bilirubin, Total 0.3 mg/dL (0.2-1.2); Calc. Creatinine Clearance 59 mL/min (70-130); Calcium 7.1 mg/dL (7.8-10.44); Carbon Dioxide 20 mmol/L (23-31); Chloride 104 mmol/L (98-107); Estimated GFR-MDRD 73; Globulin 2.6 g/dL (2.4-3.5); Glucose 88 mg/dL (83-110); Potassium 3.1 mmol/L (3.5-5.1); Protein, Total 5.2 g/dL (6.0-8.3); Sodium 134 mmol/L (136-145)
[2019-02-27] MEDS ORDERED: Bisacodyl 10 MG SUPP PR PRN (08:04)
[2019-02-27] MEDS ORDERED: Sodium Chloride 0.65% Nasal 44 ML BOT EA NARE PRN (08:04)
[2019-02-27] MEDS ORDERED: Loratadine 10 MG TAB PO PRN (08:04)
[2019-02-27] MEDS ORDERED: Cepastat Lozenges 1 LOZ PO PRN (08:04)
[2019-02-27] MEDS ORDERED: Ondansetron ODT 4 MG TAB SL PRN (08:04)
[2019-02-27] MEDS ORDERED: Artificial Tears 18 DROP/0.9 ML EA EYE PRN (08:04)
[2019-02-27] MEDS ORDERED: Diabetic Tussin 200 MG/10 ML UDCUP PO PRN (08:04)
[2019-02-27] MEDS ORDERED: Ondansetron PF 4 MG/2 ML Vial IVP PRN (08:04)
[2019-02-27] MEDS ORDERED: Loperamide HCl 2 MG CAP PO PRN (08:04)
[2019-02-27] MEDS ORDERED: Senokot S 8.6-50 MG TAB PO PRN (08:04)
[2019-02-27] MEDS ORDERED: HYDROcodone/Acetaminophen 5/325 mg Tablet PO PRN (08:04)
[2019-02-27] MEDS ORDERED: hydrALAZINE 20 MG/ML VIAL SLOW IVP PRN (08:04)
[2019-02-27] MEDS ORDERED: Dextrose 5% in Water 1,000 ML IV PRN (08:06)
[2019-02-27] MEDS ORDERED: HumaLOG 300 UNITS/3 ML VIAL SC PRN ×2 (08:06)
[2019-02-27] MEDS ORDERED: Dextrose 50% Abboject 50 ML SYRINGE SLOW IVP PRN (08:06)
[2019-02-27 08:26] LABS: Phosphorus 3.1 mg/dL (2.3-4.7)
[2019-02-27 08:34] LABS: Magnesium 0.7 mg/dL (1.6-2.6)
[2019-02-27] MEDS ORDERED: Famotidine 20 MG TAB PO SCH (09:00)
[2019-02-27] MEDS ORDERED: FLU VACC TS2019-20(65YR UP)/PF 180 MCG/0.5 ML SYRINGE IM ONE (09:00)
[2019-02-27] MEDS: Carvedilol 25 MG TAB PO SCH ×2 (09:24→17:20)
[2019-02-27] MEDS: Oxybutynin 5 MG TAB PO SCH (09:24)
[2019-02-27] MEDS: OXcarbazepine 300 MG TAB PO SCH ×2 (09:24→20:21)
[2019-02-27] MEDS: Pantoprazole 40 MG VIAL IVP SCH ×2 (09:24→20:20)
[2019-02-27] MEDS: hydrALAZINE 25 MG TAB PO SCH ×3 (09:25→20:21)
[2019-02-27] MEDS: cloNIDine 0.1 MG TAB PO SCH ×2 (09:26→20:21)
[2019-02-27] MEDS: Cyanocobalamin (Vitamin B-12) 1,000 MCG TAB PO SCH (09:43)
[2019-02-27] MEDS: Folic Acid 1 MG TAB PO SCH (09:43)
[2019-02-27] MEDS ORDERED: Magnesium Sulfate 4 GM in Sodium Chloride 0.9% 250 ML 250 ML IVPB SCH (10:00)
--- NOTE | 2019-02-27 12:34 | PDOC.HOSPP ---
- Subjective Encounter Date: 02/27/19 Encounter Time: 09:00 Subjective: pt has diarrhoea, foul smelling, no fever, her H & H stable - Objective Vital Signs & Weight: Vital Signs (12 hours) Temp Pulse Resp BP BP Pulse Ox 02/27/19 11:00 97.8 F 62 19 123/75 95 02/27/19 09:26 170/72 H 02/27/19 09:25 64 170/72 H 02/27/19 07:42 98.6 F 64 17 170/72 H 92 L 02/27/19 04:00 98.0 F 85 18 169/76 H 94 L Weight Weight 137 lb 4 oz I&O: 02/26/19 02/27/19 02/28/19 06:59 06:59 06:59 Intake Total 1200 120 Balance 1200 120 Result Diagrams: 02/27/19 05:06 02/27/19 05:06 Hospitalist ROS - Review of Systems Constitutional: denies: fever, chills, sweats, weakness, malaise, other Eyes: denies: pain, vision change, conjunctivae inflammation, eyelid inflammation, redness, other ENT: denies: ear pain, ear discharge, nose pain, nose discharge, nose congestion , mouth pain, mouth swelling, throat pain, throat swelling, other Respiratory: denies: cough, dry, shortness of breath, hemoptysis, SOB with excertion, pleuritic pain, sputum, wheezing, other Cardiovascular: denies: chest pain, palpitations, orthopnea, paroxysmal noc. dyspnea, edema, light headedness, other Gastrointestinal: reports: diarrhea. denies: nausea, vomiting, abdominal pain, constipation, melena, hematochezia, other Genitourinary: denies: dysuria, frequency, incontinence, hematuria, retention, other Musculoskeletal: denies: neck pain, shoulder pain, arm pain, back pain, hand pain, leg pain, foot pain, other Skin: denies: rash, lesions, magalie, bruising, other - Medication Medications: Active Medications Generic Name Dose Route Start Last Admin Trade Name Freq PRN Reason Stop Dose Admin Carvedilol 25 mg 02/27/19 08:00 02/27/19 09:24 Coreg PO 25 mg BID-WM IDALMIS Administration Clonidine 0.1 mg 02/27/19 09:00 02/27/19 09:26 Catapres PO 0.1 mg BID IDALMIS Administration Cyanocobalamin 1,000 mcg 02/27/19 09:00 02/27/19 09:43 Vitamin B-12 PO 1,000 mcg DAILY IDALMIS Administration Folic Acid 1 mg 02/27/19 09:00 02/27/19 09:43 Folvite PO 1 mg DAILY IDALMIS Administration Hydralazine HCl 25 mg 02/27/19 09:00 02/27/19 09:25 Apresoline PO 25 mg TID IDALMIS Administration Magnesium Sulfate 4 gm/ Sodium 258 mls @ 86 mls/hr 02/27/19 10:00 02/27/19 10 :29 Chloride IVPB 02/27/19 12:59 258 mls 1000 IDALMIS Administration Memantine 10 mg 02/27/19 09:00 02/27/19 09:24 Namenda PO 10 mg BID IDALMIS Administration Ondansetron HCl 4 mg 02/27/19 08:04 02/27/19 09:43 Zofran IVP 4 mg Q6H PRN Administration Nausea/Vomiting Oxcarbazepine 300 mg 02/27/19 09:00 02/27/19 09:24 Trileptal PO 300 mg BID IDALMIS Administration Oxybutynin Chloride 5 mg 02/27/19 09:00 02/27/19 09:24 Ditropan PO 5 mg DAILY IDALMIS Administration Pantoprazole Sodium 40 mg 02/26/19 21:00 02/27/19 09:24 Protonix IVP 40 mg Q12HR IDALMIS Administration Raloxifene HCl 60 mg 02/27/19 09:00 02/27/19 09:28 Evista PO 60 mg DAILY IDALMIS Administration - Exam General Appearance: NAD, awake alert Eye: PERRL, anicteric sclera ENT: normocephalic atraumatic, no oropharyngeal lesions Neck: supple, symmetric, no JVD, no thyromegaly Heart: RRR, no murmur, no gallops, no rubs, normal peripheral pulses Respiratory: CTAB, no wheezes, no rales, no ronchi Gastrointestinal: soft, non-tender, non-distended, normal bowel sounds Extremities: no cyanosis, no clubbing, no edema Skin: normal turgor, no lesions, no rashes Neurological: cranial nerve grossly intact, no focal deficits Musculoskeletal: normal tone, normal strength Psychiatric: normal affect, normal behavior Hosp A/P (1) Acute diarrhea Code(s): R19.7 - DIARRHEA, UNSPECIFIED Status: Acute (2) Hypertension Code(s): I10 - ESSENTIAL (PRIMARY) HYPERTENSION Status: Chronic (3) Hypokalemia Code(s): E87.6 - HYPOKALEMIA Status: Acute (4) Hypomagnesemia Code(s): E83.42 - HYPOMAGNESEMIA Status: Acute (5) Seizure Code(s): R56.9 - UNSPECIFIED CONVULSIONS Status: Chronic (6) Subdural hematoma Code(s): S06.5X9A - TRAUM SUBDR HEM W LOC OF UNSP DURATION, INIT Status: Chronic (7) Macrocytic anemia Code(s): D53.9 - NUTRITIONAL ANEMIA, UNSPECIFIED Status: Chronic - Plan old records reviewed/req, plan discussed w/ family 02/27/19- replace magnesium and potassium, send stool for infection work up today, repeat labs, H & H stable, no need of GI consult at this point, medication reviewed as above, symptomatic treatment, updated to daughter
[2019-02-27] MEDS: Potassium Chloride 10 MEQ in Premix Bag 1 BAG IVPB SCH ×2 (14:05→20:20)
[2019-02-27] MEDS: Potassium Chloride 20 MEQ TAB PO SCH (17:20)
[2019-02-27] MEDS ORDERED: Atorvastatin Calcium 20 MG TAB PO SCH (21:00)
[2019-02-28] MEDS: Potassium Chloride 10 MEQ in Premix Bag 1 BAG IVPB SCH ×2 (02:20→08:41)
[2019-02-28 07:08] LABS: #Eosinphils 0.2 thou/uL (0.0-0.7); #Lymphocytes 1.3 thou/uL (1.20-3.40); #Monocytes 0.4 thou/uL (0.11-0.59); #Neutrophils 3.7 thou/uL (1.40-6.50); %Basophils 0.3 % (0.0-1.0); %Eosinophils 3.7 % (0.0-10.0); %Lymphocytes 22.8 % (21.0-51.0); %Monocytes 6.5 % (0.0-10.0); %Neutrophils 66.6 % (42.0-75.0); Hemoglobin 10.3 g/dL (12.0-16.0); Mean Corpuscular HGB CONC 33.9 g/dL (32.0-36.0); Mean Corpuscular Hemoglobin 33.3 pg (27.0-31.0); Mean Corpuscular Volume 98.2 fL (78.0-98.0); Mean Platelet Volume 7.1 fL (7.4-10.4); Platelet Count 137 thou/uL (130-400); RBC Distribution Width 13.2 % (11.5-14.5); White Blood Cell (WBC) Count 5.5 thou/uL (4.8-10.8)
[2019-02-28 07:35] LABS: ALT (SGPT) 9 U/L (8-55); AST (SGOT) 17 U/L (5-34); Albumin 2.7 g/dL (3.4-4.8); Alkaline Phosphatase 56 U/L (40-110); Anion Gap 12 mmol/L (10-20); BUN (Urea Nitrogen) 7 mg/dL (9.8-20.1); Bilirubin, Total 0.3 mg/dL (0.2-1.2); Calc. Creatinine Clearance 62 mL/min (70-130); Calcium 7.7 mg/dL (7.8-10.44); Carbon Dioxide 22 mmol/L (23-31); Chloride 104 mmol/L (98-107); Estimated GFR-MDRD 76; Globulin 2.7 g/dL (2.4-3.5); Glucose 100 mg/dL (83-110); Magnesium 1.9 mg/dL (1.6-2.6); Potassium 3.9 mmol/L (3.5-5.1); Protein, Total 5.4 g/dL (6.0-8.3); Sodium 134 mmol/L (136-145)
[2019-02-28 07:36] VITALS: BP 139/76; TEMP 97.9
[2019-02-28] MEDS ORDERED: Ferrous Sulfate 325 MG TAB PO SCH (08:00)
[2019-02-28] MEDS: cloNIDine 0.1 MG TAB PO SCH (08:34)
[2019-02-28] MEDS: Folic Acid 1 MG TAB PO SCH (08:34)
[2019-02-28] MEDS: Carvedilol 25 MG TAB PO SCH (08:34)
[2019-02-28] MEDS: hydrALAZINE 25 MG TAB PO SCH (08:34)
[2019-02-28] MEDS: Oxybutynin 5 MG TAB PO SCH (08:34)
[2019-02-28] MEDS: OXcarbazepine 300 MG TAB PO SCH (08:35)
[2019-02-28] MEDS: Cyanocobalamin (Vitamin B-12) 1,000 MCG TAB PO SCH (08:35)
[2019-02-28] MEDS: Potassium Chloride 20 MEQ TAB PO SCH (08:35)
[2019-02-28] MEDS: Pantoprazole 40 MG VIAL IVP SCH (08:45)
--- NOTE | 2019-02-28 10:26 | PDOC.HOSPP ---
- Subjective Encounter Date: 02/28/19 Encounter Time: 07:30 Subjective: Patient seen and examined. No new complaints. No overnight events - Objective Vital Signs & Weight: Vital Signs (12 hours) Temp Pulse Resp BP BP Pulse Ox 02/28/19 08:34 73 139/76 02/28/19 07:33 97.9 F 73 17 139/76 96 Weight Weight 137 lb 4 oz I&O: 02/27/19 02/28/19 03/01/19 06:59 06:59 06:59 Intake Total 1200 1950 Balance 1200 1950 Result Diagrams: 02/28/19 06:22 02/28/19 06:22 Additional Labs: Accuchecks 02/28/19 02/27/19 02/27/19 04:22 19:32 15:48 POC Glucose 99 160 H 145 H 02/27/19 11:52 POC Glucose 108 Hospitalist ROS - Review of Systems ENT: denies: ear pain, ear discharge, nose pain, nose discharge, nose congestion , mouth pain, mouth swelling, throat pain, throat swelling, other Respiratory: denies: cough, dry, shortness of breath, hemoptysis, SOB with excertion, pleuritic pain, sputum, wheezing, other Cardiovascular: denies: chest pain, palpitations, orthopnea, paroxysmal noc. dyspnea, edema, light headedness, other Gastrointestinal: denies: nausea, vomiting, abdominal pain, diarrhea, constipation, melena, hematochezia, other Genitourinary: denies: dysuria, frequency, incontinence, hematuria, retention, other Musculoskeletal: denies: neck pain, shoulder pain, arm pain, back pain, hand pain, leg pain, foot pain, other Skin: denies: rash, lesions, magalie, bruising, other - Medication Medications: Active Medications Generic Name Dose Route Start Last Admin Trade Name Freq PRN Reason Stop Dose Admin Hydrocodone Bitart/Acetaminophen 1 tab 02/27/19 08:04 02/27/19 20:22 [place] 5/325 PO 1 tab Q4H PRN Administration Moderate Pain (4-6) Atorvastatin Calcium 20 mg 02/27/19 21:00 02/27/19 20:21 Lipitor PO 20 mg HS IDALMIS Administration Carvedilol 25 mg 02/27/19 08:00 02/28/19 08:34 Coreg PO 25 mg BID-WM IDALMIS Administration Clonidine 0.1 mg 02/27/19 09:00 02/28/19 08:34 Catapres PO 0.1 mg BID IDALMIS Administration Cyanocobalamin 1,000 mcg 02/27/19 09:00 02/28/19 08:35 Vitamin B-12 PO 1,000 mcg DAILY IDALMIS Administration Ferrous Sulfate 325 mg 02/28/19 08:00 02/28/19 08:35 Feosol PO 325 mg QAM-WM IDALMIS Administration Folic Acid 1 mg 02/27/19 09:00 02/28/19 08:34 Folvite PO 1 mg DAILY IDALMIS Administration Hydralazine HCl 25 mg 02/27/19 09:00 02/28/19 08:34 Apresoline PO 25 mg TID IDALMIS Administration Potassium Chloride 10 meq/ 100 mls @ 100 mls/hr 02/27/19 14:00 02/28/19 08:41 Device IVPB 100 mls Q6H IDALMIS Administration Memantine 10 mg 02/27/19 09:00 02/28/19 08:34 Namenda PO 10 mg BID IDALMIS Administration Ondansetron HCl 4 mg 02/27/19 08:04 02/27/19 09:43 Zofran IVP 4 mg Q6H PRN Administration Nausea/Vomiting Oxcarbazepine 300 mg 02/27/19 09:00 02/28/19 08:35 Trileptal PO 300 mg BID IDALMIS Administration Oxybutynin Chloride 5 mg 02/27/19 09:00 02/28/19 08:34 Ditropan PO 5 mg DAILY IDALMIS Administration Pantoprazole Sodium 40 mg 02/26/19 21:00 02/28/19 08:45 Protonix IVP 40 mg Q12HR IDALMIS Administration Potassium Chloride 20 meq 02/27/19 17:00 02/28/19 08:35 K-Dur PO 20 meq BID-WM IDALMIS Administration Raloxifene HCl 60 mg 02/27/19 09:00 02/28/19 10:01 Evista PO 60 mg DAILY DIALMIS Administration - Exam General Appearance: NAD, awake alert Eye: PERRL, anicteric sclera ENT: normocephalic atraumatic, no oropharyngeal lesions Neck: supple, symmetric, no JVD, no thyromegaly Heart: RRR, no murmur, no gallops, no rubs Respiratory: CTAB, no wheezes, no rales, no ronchi Gastrointestinal: soft, non-tender, non-distended, normal bowel sounds, no hepatomegaly, no splenomegaly Extremities: no cyanosis, no clubbing, no edema Skin: normal turgor, no lesions Neurological: cranial nerve grossly intact, no focal deficits Musculoskeletal: normal tone, normal strength Psychiatric: normal affect, normal behavior Hosp A/P (1) Acute diarrhea Code(s): R19.7 - DIARRHEA, UNSPECIFIED Status: Acute (2) Hypertension Code(s): I10 - ESSENTIAL (PRIMARY) HYPERTENSION Status: Chronic (3) Hypokalemia Code(s): E87.6 - HYPOKALEMIA Status: Acute (4) Hypomagnesemia Code(s): E83.42 - HYPOMAGNESEMIA Status: Acute (5) Seizure Code(s): R56.9 - UNSPECIFIED CONVULSIONS Status: Chronic (6) Subdural hematoma Code(s): S06.5X9A - TRAUM SUBDR HEM W LOC OF UNSP DURATION, INIT Status: Chronic (7) Macrocytic anemia Code(s): D53.9 - NUTRITIONAL ANEMIA, UNSPECIFIED Status: Chronic - Plan old records reviewed/req, protective services social worker 02/27/19- replace magnesium and potassium, send stool for infection work up today, repeat labs, H & H stable, no need of GI consult at this point, medication reviewed as above, symptomatic treatment, updated to daughter 02/28/19: infection ruled out, no GI bleed, medication reviewed as above, symptomatic treatment, see discharge alison
--- NOTE | 2019-02-28 11:23 | DIS ---
DATE OF ADMISSION: 02/26/2019 DATE OF DISCHARGE: 02/28/2019 DISCHARGE DISPOSITION: custodial home. PRIMARY DISCHARGE DIAGNOSES: 1. Diarrhea, ruled out infection. 2. Hypomagnesemia and hypokalemia, corrected. SECONDARY DISCHARGE DIAGNOSES: Macrocytic anemia, subdural hematoma, history of seizure disorder, and hypertension. PRIMARY PROCEDURE/OPERATION: None. RADIOLOGICAL INVESTIGATION: None. SIGNIFICANT LABORATORY DATA: WBC 5.5, hemoglobin 10.3, platelet 137. INR 1.1, sodium 134, potassium 3.9, BUN 7, creatinine 0.74, AST 17, ALT 9, alkaline phosphatase 56, albumin 2.7. DISCHARGE MEDICATIONS: 1. Clonidine 0.1 mg p.o. b.i.d. 2. Lasix 40 mg p.o. daily. 3. Hydralazine 25 mg t.i.d. 4. Namenda 10 mg b.i.d. 5. Trileptal 300 mg p.o. b.i.d. 6. Ditropan 5 mg p.o. daily. 7. Protonix 20 mg daily. 8. Potassium chloride 20 mEq p.o. b.i.d. 9. Pravastatin 80 mg p.o. at bedtime. 10. Raloxifene 60 mg daily. 11. Coreg 25 mg b.i.d. 12. Vitamin B12 of 1000 mcg p.o. daily. 13. Ferrous sulfate 325 mg p.o. daily. 14. Folic acid 1 mg p.o. daily. 15. Magnesium oxide 400 mg p.o. daily. 16. Januvia 100 mg p.o. daily. CONTRAINDICATION: None. CODE STATUS: Full code. INPATIENT SHEET TAKER: None. ALLERGIES: NO KNOWN DRUG ALLERGIES. DISCHARGE PLAN: Posthospital, the patient will follow up with primary care physician. HOSPITAL COURSE: A 78-year-old female, who was admitted by nurse practitioner Heavenly Sow, please see her H and P for further details. The patient was sent from retirement for black tarry stool. Her stool for guaiac was negative. Her H and H remained stable while in hospital. Her stool was dark, but it was not black tarry. We checked stool for infection that came back negative. Her H and H remained stable. While in hospital, we corrected her hypomagnesemia and hypokalemia. The patient is back to her normal level. She will continue all her previous medication as she has macrocytic anemia, that is why we started folic acid, B12, ferrous sulfate as well as oral magnesium oxide was prescribed, Januvia dose reduced to prevent hypoglycemia. The patient is overall stable for discharge. Paperwork for discharge done. Discharge medication reconciliation done. The patient is seen and examined at bedside today. Please see my progress note from today for further details. Job ID: [id number]
== END 2019-02-28 11:43 | disposition home or self-care (01) ==
LOC: SCSER 12:05 → T4-A 16:41
PROVIDERS: ADMIT Internal Medicine; ATTEND Internal Medicine
DX: R19.7 Diarrhea, unspecified (principal); E83.42 Hypomagnesemia; E87.6 Hypokalemia; D53.9 Nutritional anemia, unspecified; S06.5X9A Traumatic subdural hemorrhage with loss of consciousness of unspecified duration, initial encounter; G40.909 Epilepsy, unspecified, not intractable, without status epilepticus; I10 Essential (primary) hypertension; E11.9 Type 2 diabetes mellitus without complications; M81.0 Age-related osteoporosis without current pathological fracture; I25.10 Atherosclerotic heart disease of native coronary artery without angina pectoris; F03.90 Unspecified dementia, unspecified severity, without behavioral disturbance, psychotic disturbance, mood disturbance, and anxiety; E78.5 Hyperlipidemia, unspecified; Z95.2 Presence of prosthetic heart valve; Z79.84 Long term (current) use of oral hypoglycemic drugs; Z79.899 Other long term (current) drug therapy
CPT/HCPCS: 80053 ×3; 82274; 82728; 82962 ×2; 83540; 83550; 83735 ×2; 84100; 85014; 85018; 85025 ×3; 85610; 85730; 86850; 86900; 86901; 87045; 87046; 87324; 87427 ×2; 87449 ×2; 90662; 96361; 96374; 99285; G0008; 36415; 36416; 90471; 96375; 96376; C9113; G0378; J2405; J3475; J3480; J7050